=== PATIENT | male | born 1970 | race Asian ===

== ENCOUNTER 2017-01-17 17:22 | Inpatient (IN) | payer MEDICARE, MEDICAID ==
[2017-01-17 17:50] VITALS: BP 160/64
[2017-01-17] MEDS ORDERED: ceFAZolin 2 GM in Sodium Chloride 0.9% 100 ML IV ONE (18:14)
[2017-01-17] MEDS ORDERED: Morphine Sulfate 4 mg/mL 1mL Syr ONE (18:22)
--- NOTE | 2017-01-17 18:22 | ED Physician Chart ---
Chief Complaint/HPI - Patient Information Date Seen:: 01/17/17 Time Seen:: 18:17 Chief Complaint:: abscess History of Present Illness:: pt has chronic type 1 dm w blindness ...he also has crf and is on dialysis. he has noted a swelling and pain at tailbone area x sev days. he was on abx for a ST recently but not for this..unsure what he was on. no known fever. no uri sx. no gi sx. painfull at region behind scrotum and toward rt side..but anterior to anus. he notes a local swelling that is painfull. no change in bms noted. he is blind which could limit hx. has not had abscess problems in past. Allergies:: Allergies Allergy/AdvReac Type Severity Reaction Status Date / Time No Known Allergies Allergy Verified 01/17/17 17:31 Vitals:: Vital Signs - 8 hr 01/17/17 01/17/17 17:49 17:50 Temp 98.2 F HR 80 RR 17 BP 160/64 160/64 O2 Sat % 99 Historian:: Patient Review of Systems - Review of Systems General/Constitutional: No fever, No chills, No weight loss, No weakness, No diaphoresis, No edema, No loss of appetite Skin: No skin lesions, No rash, No bruising Head: No headache, No light-headedness Eyes: Acuity change (pt is blind) ENT: No earache, No nasal drainage, No sore throat, No tinnitus Neck: No neck pain, No swelling, No thyromegaly, No stiffness, No mass noted Cardio Vascular: No chest pain, No palpitations, No PND, No orthopnea, No edema Pulmonary: No SOB, No cough, No sputum, No wheezing GI: No nausea, No vomiting, No diarrhea, No pain, No melena, No hematochezia, No constipation, No hematemesis G/U: No dysuria, No frequency, No hematuria Musculoskeletal: No bone or joint pain, No back pain, No muscle pain Endocrine: No polyuria, No polydipsia Psychiatric: No prior psych history, No depression, No anxiety, No suicidal ideation Hematopoietic: No bruising, No lymphadenopathy Allergic/Immuno: No urticaria, No angioedema Neurological: No syncope, No focal symptoms, No weakness, No paresthesia, No headache, No seizure, No dizziness, No confusion, No vertigo Past Medical History - Past Medical History Past Medical History: HTN, DM, CHF, CVA/TIA (l side), ESRD (on dialysis), Other (blind from DM(type 1 DM)) Social History: Care Facility Surgical History: Pacemaker Medication: Reviewed Family Medical History - Family Member Father Hx Family Cancer: No Hx Family Congestive Heart Failure: No Hx Family Hypertension: No Hx Family Diabetes: No Hx Family Seizures: No Hx Family AIDS: No Hx Family COPD: No Physical Exam - Physical Examination General/Constitutional: Awake, Well-developed, well-nourished, Alert, No distress, GCS 15, Non-toxic appearing, Ambulatory Head: Atraumatic Other Eyes comments:: blind w vol loss to left orbit Skin: Nl inspection, No rash, No skin lesions, No ecchymosis, Well hydrated, No lymphadenopathy ENMT: External ears, nose nl, Nasal exam nl, Lips, teeth, gums nl Neck: Nontender, Full ROM w/o pain, No JVD, No nuchal rigidity, No bruit, No mass, No stridor Respiratory: Nl effort/Exclusion, Clear to Auscultation, No Wheeze/Rhonchi/Rales Cardio Vascular: RRR, No murmur, gallop, rubs, NL S1 S2 Other Cardio Vascular comments:: pacer site ok in l upper chest. GI: No tenderness/rebounding/guarding, No organomegaly, No hernia, Normal BS's, Nondistended, No mass/bruits, No McBurney tenderness : No CVA tenderness Extremities: No tenderness or effusion, Full ROM, normal strength in all extremities, No edema, Normal digits & nails Other Extremities comments:: dialysis shunt/graft at rt forearm seems ok w good thrill and no sx of infection. nontndr. Neuro/Psych: Alert/oriented, DTR's symmetric, Normal sensory exam, Normal motor strength, Judgement/insight normal, Mood normal Other Neuro/Psych comments:: prior cva w incoordination (no acute change) Misc: normal gait, Normal back, No paraspinal tenderness Other:: swelling and tender and painfull at region behind scrotum and toward rt side..but anterior to anus. there is a obviously pointing abscess which appears about to break through the skin in this region. there appears to be no extension of abscess toward anus or testiclular structures Assessment - Procedures Procedures:: i+d abscess at rt posterior low buttock. no extention to rectum or scrotum by exam. betadyne prep. iv ms 4mg for pain w zofran 4 iv. lidocaine 2pct + epi 6ml local injection. #11 scalpel used to open pointing abscess w immediate return of 5-10 ml of nuha pus. cx obtained for lab and sent. probed w forceps to break up loculations. there appears still some celulitis/induration as there is still some firm swelling in the area after pus was drained. iodoform gauze packing of wound after drainage to keep outlet open. Informed Consent: Procedure/risk/benefits explained by MD: Yes (pt blind but was made aware of all process/etc/why ..) ED Septic Shock - . Is Septic Shock (SBP<90, OR Lactate>4 mmol\L) present?: No - <6hrs of presentation: Vital Signs: Vital Signs - 8 hr 01/17/17 01/17/17 17:49 17:50 Temp 98.2 F HR 80 RR 17 BP 160/64 160/64 O2 Sat % 99 Reassessment (Disposition) - Reassessment Reassessment:: case melissa alexander who is admitting. 8:05pm pt has remained stable through ed. pain ctrl ok. vs stable ...htn noted and melissa mar Reassessment Condition:: Improved - Diagnosis Diagnosis:: 1 rt gluteal abscess w cellulitis s/p I+D of abscess in ED tonight 2 type 1 DM 3 renal failure/ dialysis pt 4 htn poor ctrl - Patient Disposition Admitted to:: Med/Surg Condition at Disposition:: Improved
[2017-01-17 18:24] LABS: % BASOPHILS 0.5 % (0.0-2.0); % EOSINOPHILS 3.1 % (0.0-5.0); % LYMPHOCYTES 9.1 % (20.0-50.0); % MONOCYTES 7.5 % (2.0-10.0); % NEUTROPHILS 79.8 % (40.0-80.0); MEAN CORPUSCULAR HEMOGLOBIN 32.3 pg (26.0-30.0); MEAN CORPUSCULAR HGB CONC 33.7 pg (28.0-36.0); MEAN PLATELET VOLUME 10.2 fl; NEUTROPHILE ABSOLUTE 6.6 Th/cmm (1.8-8.0); PLATELET COUNT 104 Th/cmm (150-400); RED BLOOD COUNT 3.16 Mil/cmm (4.30-5.70); RED CELL DISTRIBUTION WIDTH 15.2 % (11.5-20.0); WHITE BLOOD COUNT 8.3 Th/cmm (4.8-10.8)
[2017-01-17 18:35] LABS: HEMATOCRIT 30.4 % (39.0-49.0); HEMOGLOBIN 10.2 gm/dL (13.2-17.3)
[2017-01-17 18:56] LABS: ALB/GLOB RATIO 1.2 (1.0-1.8); ALKALINE PHOSPHATASE 96 U/L (34-104); BILIRUBIN,TOTAL 0.7 mg/dL (0.3-1.0); BUN - UREA NITROGEN 42 mg/dL (7-25); BUN/CREATININE RATIO 5.1; CARBON DIOXIDE 31.7 mEq/L (21.0-31.0); CHLORIDE 100 mEq/L (98-107); GLUCOSE 98 mg/dL (70-105); POTASSIUM SERUM 3.7 mEq/L (3.5-5.1); SGOT 6 U/L (13-39); SGPT/ALT < 3 U/L (7-52); SODIUM SERUM 136 mEq/L (136-145)
[2017-01-17 19:12] LABS: CREATININE - SERUM 8.2 mg/dL (0.7-1.3)
--- NOTE | 2017-01-17 22:01 | Admit Criteria Form ---
Admit Criteria Forms - Admit Criteria Diagnosis: CELLULITIS Clinical Indications for Admission to Inpatient Care (Place 'X' for any and all applicable criteria): Admission is indicated for ANY ONE of the following(1)(2)(3)(4)(5): [ ]I. Limb-threatening infection [ ]II. High-risk comorbid condition as indicated by ANY ONE of the following: [ ]a) Uncontrolled diabetes (eg, HbA1c greater than 10% (0.1)) [ ]b) Cirrhosis [ ]c) Neutropenia [ ]d) Asplenia [ ]e) Immunosuppression [ ]f) Symptomatic heart failure [ ]III. Failure of outpatient therapy as indicated by ALL of the following: [ ]a) Progression or no improvement after adequate trial (minimum of 48 hours, with longer period for stable lower extremity infection) [ ]b) Adequate antibiotic regimen as indicated by use of ANY ONE of the following: [ ]i) First-generation cephalosporin (e.g., cephalexin) [ ]ii) Antistaphylococcal penicillin (e.g., dicloxacillin) [ ]iii) Penicillin-allergic patient regimen (clindamycin, extended-spectrum fluoroquinolone, or doxycycline) [ ]iv) Resistant organism (eg, methicillin-resistant Staphylococcus aureus) regimen (6) [ ]c) Outpatient intravenous therapy regimen is not appropriate due to ANY ONE of the following. (7)(8)(9)(10): [ ]i) It was tried and was not successful (eg, progression of infection). [ ]ii) It is not available or cannot be arranged in a clinically appropriate time frame (e.g., the next day). [ ]iii) Clinical presentation (eg, acuity of infection, rapidity of progression, confirmed or suspected bacteremia) is judged to require ALL of the following: [ ]1) Immediate initiation of intravenous therapy ( eg, cannot wait for next day) [ ]2) Intensity of patient monitoring and observation (eg, vital sign measurement, checks for infection progression) that cannot be provided at other than inpatient level of care [ ]IV. Mental status changes [ ]V. Bacteremia [ ]. Hemodynamic instability [ ]VII. Suspected necrotizing soft tissue infection (e.g., gas in tissue)(11)( 12) [ ]VIII. Orbital infection (13)(14) [X]IX. Associated surgical procedure (e.g., abscess drainage, debridement) not amenable to outpatient, emergency department, or observation care [ ]X. Cutaneous gangrene [ ]XI. High fever (temperature greater than 39.5 degrees C (103.1 degrees F) (oral)) not responsive to outpatient, emergency department, or observation care therapy [ ]XIII. Inpatient admission required rather than observation care (Also use Cellulitis: Observation Care as appropriate) because of ANY ONE of the following : [ ]a) Periorbital or perineal infection that is severe or worsening [ ]b) Severe pain requiring acute inpatient management [ ]c) IV fluid to replace significant ongoing (e.g., for over 24 hours) losses (greater than 3L/m2 per day) [ ]d) Compartment syndrome monitoring (17) [ ]e) Strict or protective (eg, laminar flow) isolation [ ]f) Urgent debridement or skin grafting [ ]g) Bone or joint debridement [ ]h) Immediate inpatient surgery [ ]i) Other condition, treatment or monitoring requiring inpatient admission Extended stay beyond goal length of stay may be needed for (1)(18): [ ]a) Necrotizing soft tissue infection or fasciitis [ ]b) Gram-negative infection [ ]c) Methicillin-resistant Staphylococcal aureus (MRSA) infection [ ]d) Peripheral venous insufficiency with cellulitis [ ]e) Extensive edema [ ]f) Sepsis or continued Hemodynamic instability [ ]g) Continued high fever or mental status change [ ]h) Bacteremia [ ]i) Active serious comorbid conditions ( eg, heart failure, renal insufficiency) The original [facility] [employer] content created by [employer] has been revised. The portions of the content which have been revised are identified through the use of italic text or in bold, and [facility] has neither reviewed nor approved the modified material. All other unmodified content is copyright [facility] Please see references footnoted in the original [facility] edition 2016 Admit Criteria Met?: Yes
[2017-01-18] MEDS ORDERED: Hydrocodone/APAP 10 mg/325 mg Tab PO PRN (05:19)
[2017-01-18 07:07] LABS: % BASOPHILS 0.1 % (0.0-2.0); % EOSINOPHILS 3.7 % (0.0-5.0); % LYMPHOCYTES 10.8 % (20.0-50.0); % MONOCYTES 7.9 % (2.0-10.0); % NEUTROPHILS 77.5 % (40.0-80.0); HEMOGLOBIN 8.9 gm/dL (13.2-17.3); MEAN CELL VOLUME 95.9 fl (80-99); MEAN CORPUSCULAR HEMOGLOBIN 31.6 pg (26.0-30.0); MEAN CORPUSCULAR HGB CONC 32.9 pg (28.0-36.0); MEAN PLATELET VOLUME 9.9 fl; NEUTROPHILE ABSOLUTE 5.5 Th/cmm (1.8-8.0); PLATELET COUNT 101 Th/cmm (150-400); RED BLOOD COUNT 2.81 Mil/cmm (4.30-5.70); RED CELL DISTRIBUTION WIDTH 14.4 % (11.5-20.0); WHITE BLOOD COUNT 7.2 Th/cmm (4.8-10.8)
[2017-01-18 07:26] LABS: ALB/GLOB RATIO 1.2 (1.0-1.8); ALKALINE PHOSPHATASE 89 U/L (34-104); ANION GAP 8.3 (7.0-16.0); BILIRUBIN,TOTAL 0.5 mg/dL (0.3-1.0); BUN - UREA NITROGEN 44 mg/dL (7-25); BUN/CREATININE RATIO 5.1; CALCIUM SERUM 9.7 mg/dL (8.6-10.3); CARBON DIOXIDE 33.3 mEq/L (21.0-31.0); CHLORIDE 102 mEq/L (98-107); GLUCOSE 79 mg/dL (70-105); POTASSIUM SERUM 3.6 mEq/L (3.5-5.1); SGOT 5 U/L (13-39); SGPT/ALT < 3 U/L (7-52); SODIUM SERUM 140 mEq/L (136-145)
[2017-01-18 07:41] LABS: CREATININE - SERUM 8.7 mg/dL (0.7-1.3)
[2017-01-18] MEDS ORDERED: VTE Chemical Prophylaxis Screen/Admission MC PRN (08:30)
[2017-01-18] MEDS ORDERED: CA PANTOTHENATE PO SCH (09:00)
[2017-01-18] MEDS ORDERED: BIOTIN PO SCH (09:00)
[2017-01-18] MEDS ORDERED: FOLIC1 PO SCH (09:00)
[2017-01-18] MEDS: Aspirin 81mg Chewable Tab PO SCH (09:11)
--- NOTE | 2017-01-18 10:33 | History & Physical ---
ADMIT DATE: 01/17/2017 CHIEF COMPLAINT: Right inner thigh abscess. HISTORY OF PRESENT ILLNESS: This is a 46-year-old male who presents to [facility] for a right inner thigh abscess, which was noted by staff at the shelter a few days prior to admission. The patient was complaining of some pain and swelling behind the right scrotum towards the anterior anus with localized swelling and pain. The patient denies any changes in his bowel movements. He has a history of chronic type 1 diabetes with blindness, also has chronic renal failure on dialysis, was noted to have some swelling and pain around the tailbone area last several days prior to admission. He was treated with oral antibiotics, but did not show any improvement, thus was transferred to [facility] for further evaluation and treatment. While in the ER, the patient had some initial labs that showed a white count of 7.2, hemoglobin 10.2, hematocrit 30.4, platelets 104. Sodium was 136, potassium 3.7, chloride 100, bicarbonate 31, BUN 42, creatinine 8.2, glucose 98. AST 6, ALT less than 3. Albumin 4.0. Hemoglobin A1c was 5.5. The patient was found to have an abscess in the right upper thigh buttocks area. ER doctor initially did I and D of the abscess with some serosanguineous fluid collected and was started on Ancef while in the ER. He was subsequently admitted to med/surg for further evaluation and treatment. REVIEW OF SYSTEMS: Essentially negative with the exception of the above complaints. PHYSICAL EXAMINATION: VITAL SIGNS: Temperature 97, pulse 71, respiration 20, blood pressure 122/55. GENERAL: This is a 46-year-old female, well developed, well nourished, appears stated age. HEENT: Normocephalic, atraumatic. Pupils reactive to light and accommodation. Extraocular muscles intact. Ears: TMs intact. NECK: Supple. Good range of motion. No thyromegaly. No lymphadenopathy. CARDIOVASCULAR: Regular rate and rhythm. No murmurs, rubs or clicks. LUNGS: Clear to auscultation. No rales, rhonchi or wheezing. ABDOMEN: Bowel sounds are active in all 4 quadrants. No rebound tenderness, rigidity, no guarding. SKIN: Presence of right inguinal lower buttocks abscess. NEUROLOGIC: Cranial nerves 2-12 grossly intact. EXTREMITIES: No clubbing, cyanosis or edema. Pedal pulses intact. ASSESSMENT AND PLAN: 1. Right inguinal inner thigh buttocks abscess. We will order vancomycin per Pharmacy. Wound culture is pending. We will also order a surgical consult with Dr. Mauro. 2. End-stage renal disease, on hemodialysis. We will order Nephrology consult with Dr. Bailey. 3. Hypertension. 4. Diabetes, type 2. 5. Hyperlipidemia. 6. Cerebrovascular accident. 7. Anemia, most likely due to chronic disease. JOB# [id number]
[2017-01-18] MEDS ORDERED: Albumin 25% 25gm/100mL 25 GM/100 ML BTL IV ONE (13:44)
--- NOTE | 2017-01-19 03:44 | Consultation ---
DATE OF CONSULTATION: 01/18/2017 ATTENDING: Idris Mckenna D.O. PICKING MACHINE OPERATOR: Demetrius Bailey M.D. REASON FOR CONSULTATION: Electrolyte imbalance and fluid management. HISTORY OF PRESENT ILLNESS: This is a 46-year-old male with past medical history of end-stage renal disease on hemodialysis, who was brought in because of the right thigh/gluteal pain. A few days prior to admission, he complained of pain involving the right thigh/gluteal area. This was associated with some edema. A few days prior to admission, he complained of pain involving the right thigh/gluteal area. This was associated with some edema. A few hours prior to admission, his thigh/gluteal pain became worse. This was associated with warmth. He was then advised to proceed to the Emergency Room. His white count was 7.2. He then underwent I and D by the ER physician. Blood culture was obtained and he was initiated on Ancef. He had no fever or chills, nausea or vomiting as well as diarrhea. He has a history of kidney failure secondary to diabetes. He is now on hemodialysis. PAST MEDICAL HISTORY: 1. End-stage renal disease, on hemodialysis. 2. Type 1 diabetes mellitus. 3. Legally blind secondary to diabetes. 4. Status post cerebrovascular accident with left hemiparesis. 5. Essential hypertension. 6. Dyslipidemia. 7. Anemia of chronic disease. PAST SURGICAL HISTORY: Status post permanent pacemaker placement. CURRENT MEDICATIONS: He is currently on cholecalciferol, Zyloprim, aspirin, atropine, calcium acetate, Colace, dorzolamide, Lexapro, famotidine, folic acid, gabapentin, [place], latanoprost, losartan, potassium, ondansetron, timolol, vancomycin, and acetazolamide. ALLERGIES: No known drug allergies. SOCIAL HISTORY: No history of alcohol or tobacco use. He currently resides at an extended care facility. FAMILY HISTORY: Noncontributory to present illness. REVIEW OF SYSTEMS: CONSTITUTIONAL: Appetite had been fair. No weakness. No fever and no chills. HEENT: He is legally blind due to diabetic retinopathy. No headache or dizziness. Hearing acuity remains within acceptable limts. CARDIORESPIRATORY: He has a history of hypertension. At this point, he does not have any shortness of breath, chest pain, palpitations, diaphoresis, or cough. GASTROINTESTINAL: No nausea and vomiting, abdominal pain or cramping, hematemesis, melena, hematochezia, no diarrhea. ENDOCRINE: He has a history of diabetes, no thyroid abnormalities. He also has dyslipidemia. MUSCULOSKELETAL: Multiple joint arthralgias. GENITOURINARY: History of kidney failure, now on hemodialysis. Rarely urinates. If he does, he denies any dysuria nor hematuria. NEUROPSYCH: No syncopal episode nor seizure activity. He has some diabetic neuropathy. PHYSICAL EXAMINATION: GENERAL: The patient is awake, verbal, and comfortable. VITAL SIGNS: Blood pressure is 134/70, pulse 73, and temperature 96.9 degrees. SKIN: Good turgor, warm, no rash, no jaundice appreciated. HEENT: Head is normocephalic and atraumatic. EYES: Extraocular muscles intact. Pupils are equal, round, and reactive to light and accommodation. Anicteric sclerae, pink conjunctivae. Nose, midline nasal septum. Mouth, moist mucosa with adequate dentition. NECK: Supple, no adenopathy, no thyromegaly, no bruits. Trachea palpated in the midline. CHEST AND CVS: S1 and S2. No rub or murmur, no gallop appreciated. Point of maximum impulse fifth intercostal space, left midclavicular line. No abdominal or femoral bruits appreciated. LUNGS: Equal expansion. No use of accessory muscles. No supraclavicular retractions, decreased breath sounds, clear to auscultation without any wheeze. ABDOMEN: Mildly globular, soft. Positive bowel sounds. No bruits either diastolic or systolic. RECTAL: Deferred because of pain in the right gluteal area. He has intact dressing of the right gluteal area. GENITOURINARY: Normal appearing male genitalia. MUSCULOSKELETAL: No effusions present in his joints with adequate range of function. EXTREMITIES: No evidence of any edema, cyanosis, or clubbing with palpable femoral, popliteal, and dorsalis pedis pulses. NEUROLOGIC: The patient is alert, verbal. Motor is 5/5. Cranial nerves 3-12 intact. Sensory intact. LABORATORY DATA: Revealed sodium is 140, potassium 4.6, chloride 102, bicarbonate 23, BUN 44, creatinine 8.7, calcium 9.7, and albumin 3.8. White count is a 7.2, hemoglobin 8.9, hematocrit 27, platelets 101,000. Polys 77.5 degrees. IMPRESSION: 1. End-stage renal disease, on hemodialysis. 2. Right inner thigh/buttock abscess status I and D. 3. Metabolic alkalosis. 4. Type 1 diabetes mellitus with chronic kidney disease. 5. Legally blind secondary to diabetes. 6. Status post cerebrovascular accident with left hemiparesis. 7. Essential hypertension with chronic kidney disease. 8. Anemia of chronic kidney disease. PLAN: 1. Hemodialysis as scheduled. 2. Follow up cultures. 3. Continue with Ancef for now as well as one dose of vancomycin. 4. Agree with surgical consult. 5. Discontinue acetazolamide because the patient now is in metabolic alkalosis. Thank you, Dr. Mckenna for this consult. We will follow the patient closely with you. JOB# [id number]
[2017-01-19] MEDS: Aspirin 81mg Chewable Tab PO SCH (08:39)
--- NOTE | 2017-01-19 10:11 | General Progress Note ---
Subjective - Review of Systems Service Date: 01/19/17 Events since last encounter: chart reviewed I and D done local wound care ordered Objective - Results Result Diagrams: 01/18/17 06:33 01/18/17 06:33 Recent Labs: Laboratory Last Values WBC 7.2 Th/cmm (4.8-10.8) 01/18/17 06:33 RBC 2.81 Mil/cmm (4.30-5.70) L 01/18/17 06:33 Hgb 8.9 gm/dL (13.2-17.3) L 01/18/17 06:33 Hct 27.0 % (39.0-49.0) L D 01/18/17 06:33 MCV 95.9 fl (80-99) 01/18/17 06:33 MCH 31.6 pg (26.0-30.0) H 01/18/17 06:33 MCHC Differential 32.9 pg (28.0-36.0) 01/18/17 06:33 RDW 14.4 % (11.5-20.0) 01/18/17 06:33 Plt Count 101 Th/cmm (150-400) L 01/18/17 06:33 MPV 9.9 fl 01/18/17 06:33 Neutrophils % 77.5 % (40.0-80.0) 01/18/17 06:33 Lymphocytes % 10.8 % (20.0-50.0) L 01/18/17 06:33 Monocytes % 7.9 % (2.0-10.0) 01/18/17 06:33 Eosinophils % 3.7 % (0.0-5.0) 01/18/17 06:33 Basophils % 0.1 % (0.0-2.0) 01/18/17 06:33 Sodium 140 mEq/L (136-145) 01/18/17 06:33 Potassium 3.6 mEq/L (3.5-5.1) 01/18/17 06:33 Chloride 102 mEq/L (98-107) 01/18/17 06:33 Carbon Dioxide 33.3 mEq/L (21.0-31.0) H 01/18/17 06:33 Anion Gap 8.3 (7.0-16.0) 01/18/17 06:33 BUN 44 mg/dL (7-25) H 01/18/17 06:33 Creatinine 8.7 mg/dL (0.7-1.3) H* 01/18/17 06:33 Est GFR ( Amer) 8.4 ml/min (>90) 01/18/17 06:33 Est GFR (Non-Af Amer) 7.0 ml/min 01/18/17 06:33 BUN/Creatinine Ratio 5.1 01/18/17 06:33 Glucose 79 mg/dL (70-105) 01/18/17 06:33 Hemoglobin A1c % 5.5 % (4.0-6.0) 01/17/17 17:50 Calcium 9.7 mg/dL (8.6-10.3) 01/18/17 06:33 Total Bilirubin 0.5 mg/dL (0.3-1.0) 01/18/17 06:33 AST 5 U/L (13-39) L 01/18/17 06:33 ALT < 3 U/L (7-52) L 01/18/17 06:33 Alkaline Phosphatase 89 U/L (34-104) 01/18/17 06:33 Total Protein 7.0 gm/dL (6.0-8.3) 01/18/17 06:33 Albumin 3.8 gm/dL (4.2-5.5) L 01/18/17 06:33 Globulin 3.2 gm/dL 01/18/17 06:33 Albumin/Globulin Ratio 1.2 (1.0-1.8) 01/18/17 06:33 Random Vancomycin 11.0 ug/mL (5.0-40.0) 01/19/17 05:45 - Physical Exam Vitals and I&O: Vital Signs Temp 97.5 F 01/19/17 08:00 Pulse 76 01/19/17 08:39 Resp 18 01/19/17 08:00 BP 146/73 01/19/17 08:39 Pulse Ox 97 01/19/17 08:00 Intake & Output 01/18/17 01/19/17 01/19/17 18:59 06:59 18:59 Intake Total 320 100 220 Output Total 600 0 Balance -280 100 220 Intake: Oral 320 100 220 Output: Urine 0 Hemodialysis 600 Active Medications: Current Medications Acetaminophen/Hydrocodone Bitart ([place] 10 Mg/325 Mg) 1 tab PO Q4H PRN PRN Reason: Pain (Mild) Stop: 03/19/17 05:18 Allopurinol (Zyloprim) 300 mg PO DAILY SARAH Stop: 03/19/17 08:59 Last Admin: 01/19/17 08:39 Dose: 300 mg Aspirin (Aspirin Chewable) 81 mg PO DAILY SARAH Stop: 03/19/17 08:59 Last Admin: 01/19/17 08:39 Dose: 81 mg Atropine Sulfate (Isopto Atropine 1% Ophth Soln) 1 drop LEFT EYE BID SARAH Stop: 03/19/17 08:59 Last Admin: 01/19/17 09:09 Dose: 1 drop Calcium Acetate (Phoslo) 667 mg PO TID SARAH Stop: 03/19/17 08:59 Last Admin: 01/19/17 08:39 Dose: 667 mg Cholecalciferol (Vitamin D3) 1,000 iu PO BID SARAH Stop: 03/19/17 08:59 Docusate Sodium (Colace) 100 mg PO DAILY SARAH Stop: 03/19/17 08:59 Last Admin: 01/19/17 08:38 Dose: 100 mg Dorzolamide HCl (Trusopt 2% Ophth Soln) 1 drop EACH EYE BID SARAH Stop: 03/19/17 08:59 Last Admin: 01/19/17 09:09 Dose: 1 drop Escitalopram Oxalate (Lexapro) 10 mg PO DAILY [facility] PRN Reason: Protocol Stop: 03/19/17 08:59 Last Admin: 01/19/17 08:38 Dose: 10 mg Famotidine (Pepcid) 20 mg PO BIDAC SARAH Stop: 03/19/17 07:29 Last Admin: 01/19/17 08:38 Dose: 20 mg Folic Acid (Folate) 1 mg PO DAILY SARAH Stop: 03/19/17 08:59 Last Admin: 01/19/17 08:39 Dose: 1 mg Gabapentin (Neurontin) 100 mg PO DAILY SARAH Stop: 03/19/17 08:59 Last Admin: 01/19/17 08:39 Dose: 100 mg Heparin Sodium (Porcine) (Heparin) 5,000 units SUBQ Q12HR SARAH Stop: 03/19/17 08:59 Last Admin: 01/18/17 22:19 Dose: Not Given Vancomycin HCl 1 gm/ Sodium (Chloride) 250 mls @ 165 mls/hr IV ONCE ONE Stop: 01/19/17 13:30 Latanoprost (Xalatan 0.005% Ophth Soln) 1 drop EACH EYE HS SARAH Stop: 03/19/17 20:59 Last Admin: 01/18/17 22:18 Dose: 1 drop Losartan Potassium (Cozaar) 50 mg PO DAILY SARAH Stop: 03/19/17 08:59 Last Admin: 01/19/17 08:39 Dose: 50 mg Miscellaneous (Vancomycin Iv Per Pharmacy) 1 [facility] PRN PRN PRN Reason: PROTOCOL Stop: 03/18/17 20:13 Miscellaneous (Vte Chemical Prophylaxis Screen/ Admission) 1 [facility] PRN PRN PRN Reason: PROTOCOL Stop: 03/19/17 08:29 Timolol Maleate (Timoptic 0.5% Ophth Soln) 1 drop LEFT EYE BID SARAH Stop: 03/19/17 08:59 Last Admin: 01/19/17 09:09 Dose: 1 drop - Procedures Procedures: Procedures Procedure Code Date DRAINAGE OF RIGHT BUTTOCK, OPEN APPROACH [id number] 01/17/17 DRAINAGE OF SKIN ABSCESS 58374 01/17/17 Assessment/Plan - Problem List Patient Problems: All Active Problems Congestive heart failure (Acute) I50.9 DM w/o complication type II (Acute) E11.9 ESRD (end stage renal disease) (Acute) Essential hypertension (Acute) I10 Pain in right eye (Acute) H57.11
[2017-01-19 13:11] LABS: HEP B CORE IGM Negative (Negative); HEP C ANTIBODY <0.1 s/co ratio (0.0-0.9)
--- NOTE | 2017-01-19 13:34 | Consultation ---
DATE OF CONSULTATION: 01/19/2017 REFERRING PHYSICIAN: Dr. Mckenna. REASON FOR CONSULTATION: Abscess, right perineal area. Thank you for referring this patient to me. HISTORY OF PRESENT ILLNESS: This is a 46-year-old male who was admitted through Emergency Room because of abscess that formed in his right perineal area day prior to admission. The patient underwent incision and drainage of the abscess. PAST MEDICAL HISTORY: Includes end-stage renal disease, on hemodialysis, hypertension, diabetes, hyperlipidemia, CVA, and blindness. PHYSICAL EXAMINATION: Now, the abscess has been drained and iodoform pack is noted and removed. Local wound care will be ordered on a daily basis. We will follow with you. [facility]# [id number]
--- NOTE | 2017-01-19 13:51 | General Progress Note ---
Subjective - Review of Systems Service Date: 01/19/17 Subjective: alert, less gluteal pain Objective - Results Result Diagrams: 01/18/17 06:33 01/18/17 06:33 Recent Labs: Laboratory Last Values WBC 7.2 Th/cmm (4.8-10.8) 01/18/17 06:33 RBC 2.81 Mil/cmm (4.30-5.70) L 01/18/17 06:33 Hgb 8.9 gm/dL (13.2-17.3) L 01/18/17 06:33 Hct 27.0 % (39.0-49.0) L D 01/18/17 06:33 MCV 95.9 fl (80-99) 01/18/17 06:33 MCH 31.6 pg (26.0-30.0) H 01/18/17 06:33 MCHC Differential 32.9 pg (28.0-36.0) 01/18/17 06:33 RDW 14.4 % (11.5-20.0) 01/18/17 06:33 Plt Count 101 Th/cmm (150-400) L 01/18/17 06:33 MPV 9.9 fl 01/18/17 06:33 Neutrophils % 77.5 % (40.0-80.0) 01/18/17 06:33 Lymphocytes % 10.8 % (20.0-50.0) L 01/18/17 06:33 Monocytes % 7.9 % (2.0-10.0) 01/18/17 06:33 Eosinophils % 3.7 % (0.0-5.0) 01/18/17 06:33 Basophils % 0.1 % (0.0-2.0) 01/18/17 06:33 Sodium 140 mEq/L (136-145) 01/18/17 06:33 Potassium 3.6 mEq/L (3.5-5.1) 01/18/17 06:33 Chloride 102 mEq/L (98-107) 01/18/17 06:33 Carbon Dioxide 33.3 mEq/L (21.0-31.0) H 01/18/17 06:33 Anion Gap 8.3 (7.0-16.0) 01/18/17 06:33 BUN 44 mg/dL (7-25) H 01/18/17 06:33 Creatinine 8.7 mg/dL (0.7-1.3) H* 01/18/17 06:33 Est GFR ( Amer) 8.4 ml/min (>90) 01/18/17 06:33 Est GFR (Non-Af Amer) 7.0 ml/min 01/18/17 06:33 BUN/Creatinine Ratio 5.1 01/18/17 06:33 Glucose 79 mg/dL (70-105) 01/18/17 06:33 Hemoglobin A1c % 5.5 % (4.0-6.0) 01/17/17 17:50 Calcium 9.7 mg/dL (8.6-10.3) 01/18/17 06:33 Total Bilirubin 0.5 mg/dL (0.3-1.0) 01/18/17 06:33 AST 5 U/L (13-39) L 01/18/17 06:33 ALT < 3 U/L (7-52) L 01/18/17 06:33 Alkaline Phosphatase 89 U/L (34-104) 01/18/17 06:33 Total Protein 7.0 gm/dL (6.0-8.3) 01/18/17 06:33 Albumin 3.8 gm/dL (4.2-5.5) L 01/18/17 06:33 Globulin 3.2 gm/dL 01/18/17 06:33 Albumin/Globulin Ratio 1.2 (1.0-1.8) 01/18/17 06:33 Random Vancomycin 11.0 ug/mL (5.0-40.0) 01/19/17 05:45 Hepatitis A IgM Ab Negative (Negative) 01/18/17 05:33 Hep Bs Antigen Negative (Negative) 01/18/17 05:33 Hep B Core IgM Ab Negative (Negative) 01/18/17 05:33 Hepatitis C Antibody <0.1 s/co ratio (0.0-0.9) 01/18/17 05:33 - Physical Exam Vitals and I&O: Vital Signs Temp 97.5 F 01/19/17 08:00 Pulse 76 01/19/17 08:39 Resp 18 01/19/17 08:00 BP 146/73 01/19/17 08:39 Pulse Ox 97 01/19/17 08:00 Intake & Output 01/18/17 01/19/17 01/19/17 18:59 06:59 18:59 Intake Total 320 100 220 Output Total 600 0 Balance -280 100 220 Intake: Oral 320 100 220 Output: Urine 0 Hemodialysis 600 Active Medications: Current Medications Acetaminophen/Hydrocodone Bitart ([place] 10 Mg/325 Mg) 1 tab PO Q4H PRN PRN Reason: Pain (Mild) Stop: 03/19/17 05:18 Allopurinol (Zyloprim) 300 mg PO DAILY [facility] Stop: 03/19/17 08:59 Last Admin: 01/19/17 08:39 Dose: 300 mg Aspirin (Aspirin Chewable) 81 mg PO DAILY [facility] Stop: 03/19/17 08:59 Last Admin: 01/19/17 08:39 Dose: 81 mg Atropine Sulfate (Isopto Atropine 1% Ophth Soln) 1 drop LEFT EYE BID [facility] Stop: 03/19/17 08:59 Last Admin: 01/19/17 09:09 Dose: 1 drop Calcium Acetate (Phoslo) 667 mg PO TID [facility]AH Stop: 03/19/17 08:59 Last Admin: 01/19/17 13:29 Dose: 667 mg Cholecalciferol (Vitamin D3) 1,000 iu PO BID [facility] Stop: 03/19/17 08:59 Last Admin: 01/19/17 09:30 Dose: 1,000 iu Docusate Sodium (Colace) 100 mg PO DAILY [facility] Stop: 03/19/17 08:59 Last Admin: 01/19/17 08:38 Dose: 100 mg Dorzolamide HCl (Trusopt 2% Ophth Soln) 1 drop EACH EYE BID [facility] Stop: 03/19/17 08:59 Last Admin: 01/19/17 09:09 Dose: 1 drop Escitalopram Oxalate (Lexapro) 10 mg PO DAILY [facility] PRN Reason: Protocol Stop: 03/19/17 08:59 Last Admin: 01/19/17 08:38 Dose: 10 mg Famotidine (Pepcid) 20 mg PO BIDAC [facility] Stop: 03/19/17 07:29 Last Admin: 01/19/17 08:38 Dose: 20 mg Folic Acid (Folate) 1 mg PO DAILY [facility] Stop: 03/19/17 08:59 Last Admin: 01/19/17 08:39 Dose: 1 mg Gabapentin (Neurontin) 100 mg PO DAILY [facility] Stop: 03/19/17 08:59 Last Admin: 01/19/17 08:39 Dose: 100 mg Heparin Sodium (Porcine) (Heparin) 5,000 units SUBQ Q12HR [facility] Stop: 03/19/17 08:59 Last Admin: 01/19/17 13:19 Dose: Not Given Latanoprost (Xalatan 0.005% Oph Soln) 1 drop EACH EYE HS [facility] Stop: 03/19/17 20:59 Last Admin: 01/18/17 22:18 Dose: 1 drop Losartan Potassium (Cozaar) 50 mg PO DAILY [facility] Stop: 03/19/17 08:59 Last Admin: 01/19/17 08:39 Dose: 50 mg Miscellaneous (Vancomycin Iv Per Pharmacy) 1 [facility] PRN PRN PRN Reason: PROTOCOL Stop: 03/18/17 20:13 Miscellaneous (Vte Chemical Prophylaxis Screen/ Admission) 1 [facility] PRN PRN PRN Reason: PROTOCOL Stop: 03/19/17 08:29 Timolol Maleate (Timoptic 0.5% Oph Soln) 1 drop LEFT EYE BID [facility] Stop: 03/19/17 08:59 Last Admin: 01/19/17 09:09 Dose: 1 drop General: Alert, Cooperative, No acute distress HEENT: Atraumatic, Mucous membr. moist/pink Neck: Supple, +2 carotid pulse wo bruit Cardiovascular: Regular rate, Normal S1, Normal S2 Lungs: Clear to auscultation Abdomen: Bowel sounds, Soft Extremities: no Edema Neurological: Sensation intact Skin: no Rash Psych/Mental Status: Mood NL - Procedures Procedures: Procedures Procedure Code Date DRAINAGE OF RIGHT BUTTOCK, OPEN APPROACH [id number] 01/17/17 DRAINAGE OF SKIN ABSCESS 59182 01/17/17 Assessment/Plan - Problem List Patient Problems: All Active Problems Congestive heart failure (Acute) I50.9 DM w/o complication type II (Acute) E11.9 ESRD (end stage renal disease) (Acute) Essential hypertension (Acute) I10 Pain in right eye (Acute) H57.11 - Assessment Assessment: ESRD on HD right thigh/buttock abscess Met alk Type 1 dm 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 S/P CVA Left Hemiparesis Ess HTN Anemia of CD - Plan Plan: Lab - Result Diagrams 01/18/17 06:33 01/18/17 06:33 Current Medications Acetaminophen/Hydrocodone Bitart ([place] 10 Mg/325 Mg) 1 tab PO Q4H PRN PRN Reason: Pain (Mild) Stop: 03/19/17 05:18 Allopurinol (Zyloprim) 300 mg PO DAILY [facility]AH Stop: 03/19/17 08:59 Last Admin: 01/19/17 08:39 Dose: 300 mg Aspirin (Aspirin Chewable) 81 mg PO DAILY [facility] Stop: 03/19/17 08:59 Last Admin: 01/19/17 08:39 Dose: 81 mg Atropine Sulfate (Isopto Atropine 1% Oph Soln) 1 drop LEFT EYE BID [facility] Stop: 03/19/17 08:59 Last Admin: 01/19/17 09:09 Dose: 1 drop Calcium Acetate (Phoslo) 667 mg PO TID SARAH Stop: 03/19/17 08:59 Last Admin: 01/19/17 13:29 Dose: 667 mg Cholecalciferol (Vitamin D3) 1,000 iu PO BID SARAH Stop: 03/19/17 08:59 Last Admin: 01/19/17 09:30 Dose: 1,000 iu Docusate Sodium (Colace) 100 mg PO DAILY [facility] Stop: 03/19/17 08:59 Last Admin: 01/19/17 08:38 Dose: 100 mg Dorzolamide HCl (Trusopt 2% Ophth Soln) 1 drop EACH EYE BID [facility] Stop: 03/19/17 08:59 Last Admin: 01/19/17 09:09 Dose: 1 drop Escitalopram Oxalate (Lexapro) 10 mg PO DAILY [facility] PRN Reason: Protocol Stop: 03/19/17 08:59 Last Admin: 01/19/17 08:38 Dose: 10 mg Famotidine (Pepcid) 20 mg PO BIDAC [facility] Stop: 03/19/17 07:29 Last Admin: 01/19/17 08:38 Dose: 20 mg Folic Acid (Folate) 1 mg PO DAILY [facility] Stop: 03/19/17 08:59 Last Admin: 01/19/17 08:39 Dose: 1 mg Gabapentin (Neurontin) 100 mg PO DAILY [facility] Stop: 03/19/17 08:59 Last Admin: 01/19/17 08:39 Dose: 100 mg Heparin Sodium (Porcine) (Heparin) 5,000 units SUBQ Q12HR [facility] Stop: 03/19/17 08:59 Last Admin: 01/19/17 13:19 Dose: Not Given Latanoprost (Xalatan 0.005% Ophth Soln) 1 drop EACH EYE HS [facility] Stop: 03/19/17 20:59 Last Admin: 01/18/17 22:18 Dose: 1 drop Losartan Potassium (Cozaar) 50 mg PO DAILY [facility]AH Stop: 03/19/17 08:59 Last Admin: 01/19/17 08:39 Dose: 50 mg Miscellaneous (Vancomycin Iv Per Pharmacy) 1 ea PRN PRN PRN Reason: PROTOCOL Stop: 03/18/17 20:13 Miscellaneous (Vte Chemical Prophylaxis Screen/ Admission) 1 ea PRN PRN PRN Reason: PROTOCOL Stop: 03/19/17 08:29 Timolol Maleate (Timoptic 0.5% Oph Soln) 1 drop LEFT EYE BID SARAH Stop: 03/19/17 08:59 Last Admin: 01/19/17 09:09 Dose: 1 drop schedule for hd in am continue ABx f/u cultures
[2017-01-20 07:21] LABS: % NEUTROPHILS 69.3 % (40.0-80.0); HEMOGLOBIN 9.3 gm/dL (13.2-17.3)
[2017-01-20 07:25] LABS: % BASOPHILS 0.9 % (0.0-2.0); % EOSINOPHILS 5.9 % (0.0-5.0); % LYMPHOCYTES 15.1 % (20.0-50.0); % MONOCYTES 8.8 % (2.0-10.0); HEMATOCRIT 27.8 % (39.0-49.0); MEAN CELL VOLUME 95.4 fl (80-99); MEAN CORPUSCULAR HEMOGLOBIN 32.1 pg (26.0-30.0); MEAN CORPUSCULAR HGB CONC 33.7 pg (28.0-36.0); MEAN PLATELET VOLUME 9.5 fl; NEUTROPHILE ABSOLUTE 3.5 Th/cmm (1.8-8.0); PLATELET COUNT 103 Th/cmm (150-400); RED BLOOD COUNT 2.91 Mil/cmm (4.30-5.70); RED CELL DISTRIBUTION WIDTH 14.8 % (11.5-20.0)
[2017-01-20 07:34] LABS: ALB/GLOB RATIO 1.2 (1.0-1.8); ALKALINE PHOSPHATASE 83 U/L (34-104); ANION GAP 14.7 (7.0-16.0); BILIRUBIN,TOTAL 0.6 mg/dL (0.3-1.0); BUN - UREA NITROGEN 39 mg/dL (7-25); BUN/CREATININE RATIO 5.2; CALCIUM SERUM 9.6 mg/dL (8.6-10.3); CARBON DIOXIDE 25.2 mEq/L (21.0-31.0); CHLORIDE 105 mEq/L (98-107); GLUCOSE 65 mg/dL (70-105); POTASSIUM SERUM 3.9 mEq/L (3.5-5.1); SGOT 6 U/L (13-39); SGPT/ALT < 3 U/L (7-52); SODIUM SERUM 141 mEq/L (136-145)
[2017-01-20 07:54] LABS: CREATININE - SERUM 7.5 mg/dL (0.7-1.3)
[2017-01-20] MEDS: Aspirin 81mg Chewable Tab PO SCH (09:20)
--- NOTE | 2017-01-20 14:46 | General Progress Note ---
Subjective - Review of Systems Service Date: 01/20/17 Subjective: alert, less gluteal pain Objective - Results Result Diagrams: 01/20/17 06:50 01/20/17 06:50 Recent Labs: Laboratory Last Values WBC 5.0 Th/cmm (4.8-10.8) D 01/20/17 06:50 RBC 2.91 Mil/cmm (4.30-5.70) L 01/20/17 06:50 Hgb 9.3 gm/dL (13.2-17.3) L 01/20/17 06:50 Hct 27.8 % (39.0-49.0) L 01/20/17 06:50 MCV 95.4 fl (80-99) 01/20/17 06:50 MCH 32.1 pg (26.0-30.0) H 01/20/17 06:50 MCHC Differential 33.7 pg (28.0-36.0) 01/20/17 06:50 RDW 14.8 % (11.5-20.0) 01/20/17 06:50 Plt Count 103 Th/cmm (150-400) L 01/20/17 06:50 MPV 9.5 fl 01/20/17 06:50 Neutrophils % 69.3 % (40.0-80.0) 01/20/17 06:50 Lymphocytes % 15.1 % (20.0-50.0) L 01/20/17 06:50 Monocytes % 8.8 % (2.0-10.0) 01/20/17 06:50 Eosinophils % 5.9 % (0.0-5.0) H 01/20/17 06:50 Basophils % 0.9 % (0.0-2.0) 01/20/17 06:50 Sodium 141 mEq/L (136-145) 01/20/17 06:50 Potassium 3.9 mEq/L (3.5-5.1) 01/20/17 06:50 Chloride 105 mEq/L (98-107) 01/20/17 06:50 Carbon Dioxide 25.2 mEq/L (21.0-31.0) 01/20/17 06:50 Anion Gap 14.7 (7.0-16.0) 01/20/17 06:50 BUN 39 mg/dL (7-25) H 01/20/17 06:50 Creatinine 7.5 mg/dL (0.7-1.3) H* 01/20/17 06:50 Est GFR ( Amer) 10.0 ml/min (>90) 01/20/17 06:50 Est GFR (Non-Af Amer) 8.3 ml/min 01/20/17 06:50 BUN/Creatinine Ratio 5.2 01/20/17 06:50 Glucose 65 mg/dL (70-105) L 01/20/17 06:50 POC Glucose 131 MG/DL (70 - 105) H 01/20/17 11:23 Hemoglobin A1c % 5.5 % (4.0-6.0) 01/17/17 17:50 Calcium 9.6 mg/dL (8.6-10.3) 01/20/17 06:50 Total Bilirubin 0.6 mg/dL (0.3-1.0) 01/20/17 06:50 AST 6 U/L (13-39) L 01/20/17 06:50 ALT < 3 U/L (7-52) L 01/20/17 06:50 Alkaline Phosphatase 83 U/L (34-104) 01/20/17 06:50 Total Protein 6.6 gm/dL (6.0-8.3) 01/20/17 06:50 Albumin 3.6 gm/dL (4.2-5.5) L 01/20/17 06:50 Globulin 3.0 gm/dL 01/20/17 06:50 Albumin/Globulin Ratio 1.2 (1.0-1.8) 01/20/17 06:50 Random Vancomycin 11.0 ug/mL (5.0-40.0) 01/19/17 05:45 Hepatitis A IgM Ab Negative (Negative) 01/18/17 05:33 Hep Bs Antigen Negative (Negative) 01/18/17 05:33 Hep B Core IgM Ab Negative (Negative) 01/18/17 05:33 Hepatitis C Antibody <0.1 s/co ratio (0.0-0.9) 01/18/17 05:33 - Physical Exam Vitals and I&O: Vital Signs Temp 98.2 F 01/20/17 12:49 Pulse 81 01/20/17 12:49 Resp 18 01/20/17 12:49 BP 107/62 01/20/17 12:49 Pulse Ox 98 01/20/17 12:49 Intake & Output 01/19/17 01/20/17 01/20/17 18:59 06:59 18:59 Intake Total 220 50 50 Output Total 0 Balance 220 50 50 Weight (lbs) 90.775 kg Intake: Oral 220 50 50 Output: Urine 0 Other: # Voids 1 1 # Bowel Movements 0 Active Medications: Current Medications Acetaminophen/Hydrocodone Bitart ([place] 10 Mg/325 Mg) 1 tab PO Q4H PRN PRN Reason: Pain (Mild) Stop: 03/19/17 05:18 Allopurinol (Zyloprim) 300 mg PO DAILY [facility] Stop: 03/19/17 08:59 Last Admin: 01/20/17 09:19 Dose: 300 mg Aspirin (Aspirin Chewable) 81 mg PO DAILY [facility] Stop: 03/19/17 08:59 Last Admin: 01/20/17 09:20 Dose: 81 mg Atropine Sulfate (Isopto Atropine 1% Ophth Soln) 1 drop LEFT EYE BID [facility] Stop: 03/19/17 08:59 Last Admin: 01/20/17 09:19 Dose: 1 drop Calcium Acetate (Phoslo) 667 mg PO TID [facility] Stop: 03/19/17 08:59 Last Admin: 01/20/17 09:19 Dose: 667 mg Cholecalciferol (Vitamin D3) 1,000 iu PO BID [facility] Stop: 03/19/17 08:59 Last Admin: 01/20/17 09:19 Dose: 1,000 iu Docusate Sodium (Colace) 100 mg PO DAILY [facility] Stop: 03/19/17 08:59 Last Admin: 01/20/17 09:19 Dose: 100 mg Dorzolamide HCl (Trusopt 2% Ophth Soln) 1 drop EACH EYE BID [facility] Stop: 03/19/17 08:59 Last Admin: 01/20/17 09:18 Dose: 1 drop Escitalopram Oxalate (Lexapro) 10 mg PO DAILY [facility] PRN Reason: Protocol Stop: 03/19/17 08:59 Last Admin: 01/20/17 09:19 Dose: 10 mg Famotidine (Pepcid) 20 mg PO BIDAC [facility] Stop: 03/19/17 07:29 Last Admin: 01/20/17 09:20 Dose: 20 mg Folic Acid (Folate) 1 mg PO DAILY [facility] Stop: 03/19/17 08:59 Last Admin: 01/20/17 09:20 Dose: 1 mg Gabapentin (Neurontin) 100 mg PO DAILY [facility] Stop: 03/19/17 08:59 Last Admin: 01/20/17 09:19 Dose: 100 mg Heparin Sodium (Porcine) (Heparin) 5,000 units SUBQ Q12HR [facility] Stop: 03/19/17 08:59 Last Admin: 01/20/17 09:02 Dose: Not Given Latanoprost (Xalatan 0.005% Ophth Soln) 1 drop EACH EYE HS [facility] Stop: 03/19/17 20:59 Last Admin: 01/19/17 22:11 Dose: 1 drop Losartan Potassium (Cozaar) 50 mg PO DAILY [facility] Stop: 03/19/17 08:59 Last Admin: 01/20/17 09:20 Dose: Not Given Miscellaneous (Vancomycin Iv Per Pharmacy) 1 [facility] PRN PRN PRN Reason: PROTOCOL Stop: 03/18/17 20:13 Miscellaneous (Vte Chemical Prophylaxis Screen/ Admission) 1 [facility] PRN PRN PRN Reason: PROTOCOL Stop: 03/19/17 08:29 Timolol Maleate (Timoptic 0.5% Ophth Soln) 1 drop LEFT EYE BID [facility] Stop: 03/19/17 08:59 Last Admin: 01/20/17 09:19 Dose: 1 drop General: Alert, No acute distress HEENT: Atraumatic, Mucous membr. moist/pink Neck: Supple, +2 carotid pulse wo bruit Cardiovascular: Regular rate, Normal S1, Normal S2 Lungs: Clear to auscultation Abdomen: Bowel sounds, Soft Extremities: no Edema Neurological: Sensation intact Skin: no Rash Psych/Mental Status: Mood NL - Procedures Procedures: Procedures Procedure Code Date DRAINAGE OF RIGHT BUTTOCK, OPEN APPROACH [id number] 01/17/17 DRAINAGE OF SKIN ABSCESS 44220 01/17/17 Assessment/Plan - Problem List Patient Problems: All Active Problems Congestive heart failure (Acute) I50.9 DM w/o complication type II (Acute) E11.9 ESRD (end stage renal disease) (Acute) Essential hypertension (Acute) I10 Pain in right eye (Acute) H57.11 - Assessment Assessment: ESRD on HD right thigh/buttock abscess, S/P I&D Met alk Type 1 dm 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 S/P CVA Left Hemiparesis Ess HTN Anemia of CD - Plan Plan: Lab - Result Diagrams 01/18/17 06:33 01/18/17 06:33 Current Medications Acetaminophen/Hydrocodone Bitart ([place] 10 Mg/325 Mg) 1 tab PO Q4H PRN PRN Reason: Pain (Mild) Stop: 03/19/17 05:18 Allopurinol (Zyloprim) 300 mg PO DAILY [facility] Stop: 03/19/17 08:59 Last Admin: 01/19/17 08:39 Dose: 300 mg Aspirin (Aspirin Chewable) 81 mg PO DAILY [facility] Stop: 03/19/17 08:59 Last Admin: 01/19/17 08:39 Dose: 81 mg Atropine Sulfate (Isopto Atropine 1% Ophth Soln) 1 drop LEFT EYE BID [facility] Stop: 03/19/17 08:59 Last Admin: 01/19/17 09:09 Dose: 1 drop Calcium Acetate (Phoslo) 667 mg PO TID [facility] Stop: 03/19/17 08:59 Last Admin: 01/19/17 13:29 Dose: 667 mg Cholecalciferol (Vitamin D3) 1,000 iu PO BID [facility] Stop: 03/19/17 08:59 Last Admin: 01/19/17 09:30 Dose: 1,000 iu Docusate Sodium (Colace) 100 mg PO DAILY [facility] Stop: 03/19/17 08:59 Last Admin: 01/19/17 08:38 Dose: 100 mg Dorzolamide HCl (Trusopt 2% Ophth Soln) 1 drop EACH EYE BID [facility] Stop: 03/19/17 08:59 Last Admin: 01/19/17 09:09 Dose: 1 drop Escitalopram Oxalate (Lexapro) 10 mg PO DAILY [facility] PRN Reason: Protocol Stop: 03/19/17 08:59 Last Admin: 01/19/17 08:38 Dose: 10 mg Famotidine (Pepcid) 20 mg PO BIDAC [facility] Stop: 03/19/17 07:29 Last Admin: 01/19/17 08:38 Dose: 20 mg Folic Acid (Folate) 1 mg PO DAILY [facility] Stop: 03/19/17 08:59 Last Admin: 01/19/17 08:39 Dose: 1 mg Gabapentin (Neurontin) 100 mg PO DAILY [facility] Stop: 03/19/17 08:59 Last Admin: 01/19/17 08:39 Dose: 100 mg Heparin Sodium (Porcine) (Heparin) 5,000 units SUBQ Q12HR [facility] Stop: 03/19/17 08:59 Last Admin: 01/19/17 13:19 Dose: Not Given Latanoprost (Xalatan 0.005% Oph Soln) 1 drop EACH EYE HS [facility] Stop: 03/19/17 20:59 Last Admin: 01/18/17 22:18 Dose: 1 drop Losartan Potassium (Cozaar) 50 mg PO DAILY [facility] Stop: 03/19/17 08:59 Last Admin: 01/19/17 08:39 Dose: 50 mg Miscellaneous (Vancomycin Iv Per Pharmacy) 1 ea PRN PRN PRN Reason: PROTOCOL Stop: 03/18/17 20:13 Miscellaneous (Vte Chemical Prophylaxis Screen/ Admission) 1 ea PRN PRN PRN Reason: PROTOCOL Stop: 03/19/17 08:29 Timolol Maleate (Timoptic 0.5% Oph Soln) 1 drop LEFT EYE BID [facility] Stop: 03/19/17 08:59 Last Admin: 01/19/17 09:09 Dose: 1 drop schedule for hd today continue ABx f/u cultures
--- NOTE | 2017-01-23 22:28 | Discharge Summary ---
DATE OF DISCHARGE: 01/20/2017 PRELIMINARY DIAGNOSES: 1. Right inguinal inner thigh abscess. 2. End-stage renal disease, on hemodialysis. 3. Hypertension. 4. Diabetes mellitus type 2. 5. Hyperlipidemia. 6. Cerebrovascular accident. 7. Anemia secondary to chronic disease. DISCHARGE DIAGNOSES: 1. Right inguinal abscess, status post incision and drainage, now improved. 2. End-stage renal disease, on hemodialysis. 3. Hypertension. 4. Diabetes type 2. 5. Hyperlipidemia. 6. Cerebrovascular accident. 7. Anemia due to chronic disease. BRIEF HISTORY OF PRESENT ILLNESS: This is a 46-year-old male who presents to [facility] ER from group home facility for right inner thigh abscess which was noted by the staff at the shelter a few days prior to admission. The patient was complaining of pain and swelling behind his right scrotum towards the anterior anus with localized swelling and pain. The patient denies any changes in bowel habits. Has a history of chronic type 1 diabetes with blindness, also has chronic renal failure, on hemodialysis, was noted to have some swelling and pain around the tailbone area a few days prior to admission, was treated with oral antibiotics, but did not show any improvement and thus was transferred to [facility] for further evaluation and treatment. While in the ER, the patient had some initial lab work that showed a white count of 7.2, hemoglobin 10.2, hematocrit 30.4 and platelets 104. Sodium was 136, potassium 3.7, chloride 100, bicarbonate ____, BUN 42, creatinine 8.2 with glucose of 98. AST was 6, ALT was less than 3. Albumin 4.0. Hemoglobin A1c was 5.5. The patient underwent an I and D while in the ER and some serosanguineous fluid was collected and sent for culture. The patient was initially started on Ancef while in the ER and was subsequently admitted for further evaluation and treatment. HOSPITAL COURSE: The patient was seen and evaluated by Dr. Mauro for surgical consult as well as Dr. Bailey for Nephrology consult. The patient improved during his hospital stay and was started on vancomycin per pharmacy. His initial white count noted was normal at 7.2 and repeat lab work showed improvement of his white count, which improved to 5.0. The patient did have dialysis during his hospital stay, which was supervised by Dr. Bailey. He was seen and evaluated by Dr. Mauro and was continued on his current treatment of wound care dressing changes as well as IV antibiotics. He was subsequently discharged in stable condition back to the shelter with the same orders. JOB# [id number]
== END 2017-01-20 16:05 | DRG 579 ==
LOC: ER 17:22 → MSI 20:10
PROVIDERS: ADMIT Family Medicine; ATTEND Family Medicine
PROC: 0J990ZZ Drainage of Buttock Subcutaneous Tissue and Fascia, Open Approach (ICD-10-PCS; principal; 2017-01-17)
PROC: 5A1D60Z (ICD-10-PCS; 2017-01-18)
DX: L02.31 Cutaneous abscess of buttock (principal); N18.6 End stage renal disease; I13.2 Hypertensive heart and chronic kidney disease with heart failure and with stage 5 chronic kidney disease, or end stage renal disease; E87.3 Alkalosis; I12.0 Hypertensive chronic kidney disease with stage 5 chronic kidney disease or end stage renal disease; I69.354 Hemiplegia and hemiparesis following cerebral infarction affecting left non-dominant side; E10.22 Type 1 diabetes mellitus with diabetic chronic kidney disease; E78.5 Hyperlipidemia, unspecified; I50.9 Heart failure, unspecified; E10.69 Type 1 diabetes mellitus with other specified complication; L03.317 Cellulitis of buttock; H54.8 Legal blindness, as defined in USA; D63.1 Anemia in chronic kidney disease; Z95.0 Presence of cardiac pacemaker; Z99.2 Dependence on renal dialysis
CPT/HCPCS: 36415-UA; 80053-TC; 80074-90; 80202-TC; 82948-90; 83036-90; 85025-TC; 87070-90; 90937; 96375; J0690; J1644; J2405; J3370; J7030; X6444; X7704; Z7610

== ENCOUNTER 2018-08-20 20:59 | Emergency (ER) | payer MEDICARE, MEDICAID ==
--- NOTE | 2018-08-20 21:21 | ED Physician Chart ---
ED Chief Complaint/HPI - Patient Information Date Seen:: 08/20/18 Time Seen:: 21:21 Chief Complaint:: "Suicidal ideation" History of Present Illness:: 47 yo male with history of hypertension, atrial fibrillation with dual chamber pacemaker, DM II, ESRD on HD MWF, was brought from SNF to ER for evaluation of possible suicidal ideation. Patient stated that "I was singing the song 'Stair away to haven' in room when my roommate reported me." Allergies:: Allergies Allergy/AdvReac Type Severity Reaction Status Date / Time No Known Allergies Allergy Verified 08/20/18 21:17 ED Review of Systems - Review of Systems General/Constitutional: No fever Skin: No bruising Head: No headache Eyes: No pain ENT: No nasal drainage Neck: No neck pain Cardio Vascular: No chest pain Pulmonary: No SOB GI: No nausea, No vomiting Musculoskeletal: No bone or joint pain Neurological: Weakness ED Past Medical History - Past Medical History Past Medical History: DM, CVA/TIA, Dyslipidemia, PUD/GERD, Other (blind, atrial fibrillation with dual chamber pacemaker) Social History: Non Smoker, No Alcohol, No Drug Use Surgical History: Pacemaker, other (Left 4th, 5th toe amputation, right forearm AV fistula) Psychiatricy History: Depression Family Medical History - Family Member Father Hx Family Cancer: No Hx Family Congestive Heart Failure: No Hx Family Hypertension: No Hx Family Diabetes: No Hx Family Seizures: No Hx Family AIDS: No Hx Family COPD: No ED Physical Exam - Physical Examination General/Constitutional: Awake, Alert Head: Atraumatic Other Eyes comments:: Bilateral eyes blind Skin: No ecchymosis ENMT: Nasal exam nl Neck: No nuchal rigidity Respiratory: Nl effort/Exclusion, Clear to Auscultation, No Wheeze/Rhonchi/Rales Cardio Vascular: RRR, No murmur, gallop, rubs, NL S1 S2 GI: No tenderness/rebounding/guarding Other Extremities comments:: Right forearm AV fistula intact Neuro/Psych: Alert/oriented Other Neuro/Psych comments:: RUE 5/5, LUE 5/5, RLE 3/5, LLE 5/5 ED Labs/Radiology/EKG Results - Lab Results Results: Laboratory Last Values WBC 5.9 Th/cmm (4.8-10.8) 08/20/18 21:30 RBC 3.44 Mil/cmm (4.30-5.70) L 08/20/18 21:30 Hgb 11.1 gm/dL (12-16) L 08/20/18 21: Hct 34.5 % (41.0-60) L 08/20/18 21:30 MCV 100.5 fl (80-99) H 08/20/18 21: MCH 32.2 pg (26.0-30.0) H 08/20/18: MCHC Differential 32.0 pg (28.0-36.0) 08/20/18 21: RDW 16.2 % (11.5-20.0) 08/20/18: Plt Count 109 Th/cmm (150-400) L 08/20/18 21: MPV 9.5 fl 08/20/18 21: Neutrophils % 73.1 % (40.0-80.0) 08/20/18: Lymphocytes % 14.6 % (20.0-50.0) L 08/20/18 21: Monocytes % 8.3 % (2.0-10.0) 08/20/18 21: Eosinophils % 2.8 % (0.0-5.0) 08/20/18: Basophils % 1.2 % (0.0-2.0) 08/20/18 21: PT 9.5 SECONDS (9.5-11.5) 08/20/18 21: INR 0.91 (0.5-1.4) 08/20/18 21: PTT (Actin FS) 33.0 SECONDS (26.0-38.0) 08/20/18 21:30 Sodium 142 mEq/L (136-145) 08/20/18 21: Potassium 3.8 mEq/L (3.5-5.1) 08/20/18 21: Chloride 101 mEq/L (98-107) 08/20/18 21: Carbon Dioxide 30.8 mEq/L (21.0-31.0) 08/20/18 21: Anion Gap 14.0 (7.0-16.0) 08/20/18 21: BUN 47 mg/dL (7-25) H 08/20/18 21:30 Creatinine 6.7 mg/dL (0.7-1.3) H* 08/20/18 21:30 Est GFR ( Amer) 11.4 ml/min (>90) 08/20/18 21:30 Est GFR (Non-Af Amer) 9.4 ml/min 08/20/18 21:30 BUN/Creatinine Ratio 7.0 08/20/18 21:30 Glucose 127 mg/dL (70-105) H 08/20/18 21:30 Calcium 9.5 mg/dL (8.6-10.3) 08/20/18 21:30 Total Bilirubin 0.6 mg/dL (0.3-1.0) 08/20/18 21:30 AST 11 U/L (13-39) L 08/20/18 21:30 ALT 4 U/L (7-52) L 08/20/18 21:30 Alkaline Phosphatase 92 U/L (34-104) 08/20/18 21:30 Troponin I 0.09 ng/mL (0.01-0.05) H* 08/20/18 21:30 B-Natriuretic Peptide 882.0 pg/mL (5.0-100.0) H 08/20/18 21:30 Total Protein 6.9 gm/dL (6.0-8.3) 08/20/18 21:30 Albumin 4.3 gm/dL (4.2-5.5) 08/20/18 21:30 Globulin 2.6 gm/dL 08/20/18 21:30 Albumin/Globulin Ratio 1.7 (1.0-1.8) 08/20/18 21:30 TSH 5.64 uIU/ml (0.34-5.60) H 08/20/18 21:30 - Radiology Results Results: CXR: Cardiomegaly, dual chamber pacemaker, no focal consolidation - EKG Interpretations EKG Time:: 21:24 Rate & Rhythm: 71 bpm, atrial-sensed ventricular-paced rhythm Comments:: Abnormal EKG ED Assessment - Assessment General Assessment: ESRD on HD DM II Hypertension Anemia, macrocytic Hypothyroidism Blind Atrial fibrillation with dual chamber pacemaker Right lower extremity weakness Assessment/Comments:: CBC, CMP, BNP, Trop EKG, CXR Discharge to SNF F/u PCP Continue hemodialysis ED Septic Shock - . Is Septic Shock (SBP<90, OR Lactate>4 mmol\\L) present?: No ED Reassessment (Disposition) - Reassessment Reassessment:: Patient did not have any suicidal ideation or attempt at ER. Reassessment Condition:: Improved - Patient Disposition Discharge/Transfer:: [facility] - SNF
[2018-08-20 21:37] LABS: % BASOPHILS 1.2 % (0.0-2.0); % EOSINOPHILS 2.8 % (0.0-5.0); % LYMPHOCYTES 14.6 % (20.0-50.0); % MONOCYTES 8.3 % (2.0-10.0); % NEUTROPHILS 73.1 % (40.0-80.0); BASOPHILE ABSOLUTE 0.1 Th/cumm (0-0.2); EOSINOPHILE ABSOLUTE 0.2 Th/cmm (0.1-0.4); HEMATOCRIT 34.5 % (41.0-60); HEMOGLOBIN 11.1 gm/dL (12-16); LYMPHOCYTE ABSOLUTE 0.9 Th/cmm (1.5-3.0); MEAN CELL VOLUME 100.5 fl (80-99); MEAN CORPUSCULAR HEMOGLOBIN 32.2 pg (26.0-30.0); MEAN PLATELET VOLUME 9.5 fl; MONOCYTE ABSOLUTE 0.5 Th/cmm (0.3-1.0); NEUTROPHILE ABSOLUTE 4.2 Th/cmm (1.8-8.0); PLATELET COUNT 109 Th/cmm (150-400); RED BLOOD COUNT 3.44 Mil/cmm (4.30-5.70); RED CELL DISTRIBUTION WIDTH 16.2 % (11.5-20.0); WHITE BLOOD COUNT 5.9 Th/cmm (4.8-10.8)
[2018-08-20 21:55] LABS: INR 0.91 (0.5-1.4); PROTHROMBIN TIME (TEST) 9.5 SECONDS (9.5-11.5)
[2018-08-20 21:56] LABS: ALB/GLOB RATIO 1.7 (1.0-1.8); ALBUMIN 4.3 gm/dL (4.2-5.5); BILIRUBIN,TOTAL 0.6 mg/dL (0.3-1.0); CALCIUM SERUM 9.5 mg/dL (8.6-10.3); CARBON DIOXIDE 30.8 mEq/L (21.0-31.0); GFR AFRICAN-AMERICAN 11.4 ml/min (>90); GFR NON AFRICAN-AMERICAN 9.4 ml/min; POTASSIUM SERUM 3.8 mEq/L (3.5-5.1); TOTAL PROTEIN,SERUM 6.9 gm/dL (6.0-8.3)
[2018-08-20 21:58] LABS: CREATININE - SERUM 6.7 mg/dL (0.7-1.3)
--- NOTE | 2018-08-21 08:42 | Diagnostic Imaging Report ---
CHEST X-RAY: AP view INDICATION: Shortness of breath COMPARISON: None FINDINGS: Left chest wall AICD apparatus is noted with leads in the region of the right atrium, right ventricle, and epicardial lead. Cardiomegaly is noted with atherosclerosis. Left basal density is noted. The osseous structures are intact. IMPRESSION: Left basal density which may be due to superimposition of soft tissue structures and patient's cardiomegaly. Small left effusion and left basal atelectasis versus infiltrate cannot be completely excluded. If indicated PA and lateral views may be obtained for further assessment. Cardiomegaly and atherosclerotic vascular disease. AICD noted.
== END 2018-08-21 00:37 ==
LOC: ER 20:59
DX: I12.0 Hypertensive chronic kidney disease with stage 5 chronic kidney disease or end stage renal disease (principal); E10.22 Type 1 diabetes mellitus with diabetic chronic kidney disease; N18.6 End stage renal disease; D53.9 Nutritional anemia, unspecified; E03.9 Hypothyroidism, unspecified; I48.91 Unspecified atrial fibrillation; M62.81 Muscle weakness (generalized); R45.851 Suicidal ideations; K21.9 Gastro-esophageal reflux disease without esophagitis; F32.9 Major depressive disorder, single episode, unspecified; I25.119 Atherosclerotic heart disease of native coronary artery with unspecified angina pectoris
CPT/HCPCS: 36415-UA; 71045-TC; 80053-TC; 83880-TC; 84443-TC; 84484-TC; 85025-TC; 85610-TC; 93005; Z7502

== ENCOUNTER 2018-09-26 14:22 | Inpatient (IN) | payer MEDICARE, MEDICAID ==
--- NOTE | 2018-09-26 15:12 | ED Physician Chart ---
ED Chief Complaint/HPI - Patient Information Date Seen:: 09/26/18 Time Seen:: 15:00 Chief Complaint:: low back pain History of Present Illness:: Patient's had low back pain for 6 days. Pain occurs almost exclusively when he coughs. He is also had a cough for 6 days. Patient was given one [place] 4 days ago which relieved the pain. Since then patient has been offered plain Tylenol which does not relieve the pain. No recent trauma. Allergies:: Allergies Allergy/AdvReac Type Severity Reaction Status Date / Time No Known Allergies Allergy Verified 08/20/18 21:17 Vitals:: Vital Signs - 8 hr 09/26/18 14:51 Temp 98.2 F HR 97 RR 16 BP 133/78 O2 Sat % 97 Historian:: Patient ED Review of Systems - Review of Systems General/Constitutional: No fever, No chills, No weight loss, No weakness, No diaphoresis, No edema, No loss of appetite Skin: No skin lesions, No rash, No bruising Head: No headache, No light-headedness Eyes: No pain, No diplopia ENT: No earache, No nasal drainage, No sore throat, No tinnitus Neck: No neck pain, No swelling, No thyromegaly, No stiffness, No mass noted Cardio Vascular: No chest pain, No palpitations, No PND, No orthopnea, No edema Pulmonary: No SOB, No cough, No sputum, No wheezing GI: No nausea, No vomiting, No diarrhea, No pain, No melena, No hematochezia, No constipation, No hematemesis G/U: No dysuria, No frequency, No hematuria Musculoskeletal: Back pain Endocrine: No polyuria, No polydipsia Psychiatric: No prior psych history, No depression, No anxiety, No suicidal ideation Hematopoietic: No bruising, No lymphadenopathy Allergic/Immuno: No urticaria, No angioedema Neurological: No syncope, No focal symptoms, No weakness, No paresthesia, No headache, No seizure, No dizziness, No confusion, No vertigo ED Past Medical History - Past Medical History Past Medical History: HTN, DM, CAD, Other (blind for 1-1/2 years; history of atrial fibrillation; major depression; gout; renal failure on dialysis Sunday) Family History: None Social History: Non Smoker, No Alcohol Surgical History: other (dialysis shunt; eye surgery; pacemaker) Medication: Reviewed Family Medical History - Family Member Father History Unknown: Yes Hx Family Cancer: No Hx Family Congestive Heart Failure: No Hx Family Hypertension: No Hx Family Diabetes: No Hx Family Seizures: No Hx Family AIDS: No Hx Family COPD: No ED Physical Exam - Physical Examination General/Constitutional: Awake, Well-developed, well-nourished, Alert Head: Atraumatic Other Eyes comments:: Keeps eyes closed Skin: No rash ENMT: Nasal exam nl, Lips, teeth, gums nl Neck: No nuchal rigidity Respiratory: Nl effort/Exclusion, Clear to Auscultation, No Wheeze/Rhonchi/Rales Cardio Vascular: RRR, No murmur, gallop, rubs, NL S1 S2 GI: No tenderness/rebounding/guarding, No organomegaly, No hernia, Normal BS's, Nondistended, No mass/bruits Extremities: No edema, Normal digits & nails Other Extremities comments:: Passive straight leg raising of 80 bilaterally; deep tendon reflexes knees and ankles 2.5 out of 4 Neuro/Psych: No focal deficits ED Labs/Radiology/EKG Results - Lab Results Results: Abnormal Lab Results 09/26/18 09/26/18 15:19 15:19 WBC 4.9 RBC 2.90 L Hgb 9.2 L Hct 29.2 L MCV 100.5 H MCH 31.6 H MCHC Differential 31.5 RDW 15.3 Plt Count 142 L MPV 9.3 Neutrophils % 72.7 Lymphocytes % 17.3 L Monocytes % 5.9 Eosinophils % 3.1 Basophils % 1.0 Sodium 144 Potassium 3.5 Chloride 100 Carbon Dioxide 33.5 H Anion Gap 14.0 BUN 43 H Creatinine 8.1 H* Est GFR ( Amer) 9.1 Est GFR (Non-Af Amer) 7.6 BUN/Creatinine Ratio 5.3 Glucose 89 Calcium 9.4 Magnesium 2.1 - EKG Interpretations Rate & Rhythm: paced beats at a rate is 96 ED Assessment - Assessment General Assessment: Plan was to discharge the patient back to his facility after receiving a [place] per my conversation with Dr. Idris Mckenna. Patient when so informed stated he did not want to return to that facility stating "I hate that place." I talked again to Dr. Mckenna and patient to be admitted. ED Septic Shock - . Is Septic Shock (SBP<90, OR Lactate>4 mmol\\L) present?: No - <6hrs of presentation: Vital Signs: Vital Signs - 8 hr 09/26/18 14:51 Temp 98.2 F HR 97 RR 16 BP 133/78 O2 Sat % 97 ED Reassessment (Disposition) - Reassessment Reassessment Condition:: Unchanged - Diagnosis Diagnosis:: Intractable back pain; diabetes; renal failure on dialysis; blindness - Patient Disposition Admitted to:: Med/Surg Spoke to:: Idris Mckenna Admitting Medical Physician:: Idris Mckenna Condition at Disposition:: Stable, Unchanged
[2018-09-26 15:25] LABS: % EOSINOPHILS 3.1 % (0.0-5.0); % LYMPHOCYTES 17.3 % (20.0-50.0); % MONOCYTES 5.9 % (2.0-10.0); % NEUTROPHILS 72.7 % (40.0-80.0); EOSINOPHILE ABSOLUTE 0.2 Th/cmm (0.1-0.4); HEMATOCRIT 29.2 % (41.0-60); HEMOGLOBIN 9.2 gm/dL (12-16); LYMPHOCYTE ABSOLUTE 0.8 Th/cmm (1.5-3.0); MEAN CELL VOLUME 100.5 fl (80-99); MEAN CORPUSCULAR HEMOGLOBIN 31.6 pg (26.0-30.0); MEAN CORPUSCULAR HGB CONC 31.5 pg (28.0-36.0); MEAN PLATELET VOLUME 9.3 fl; MONOCYTE ABSOLUTE 0.3 Th/cmm (0.3-1.0); NEUTROPHILE ABSOLUTE 3.6 Th/cmm (1.8-8.0); PLATELET COUNT 142 Th/cmm (150-400); RED CELL DISTRIBUTION WIDTH 15.3 % (11.5-20.0); WHITE BLOOD COUNT 4.9 Th/cmm (4.8-10.8)
[2018-09-26 15:44] LABS: CALCIUM SERUM 9.4 mg/dL (8.6-10.3); CARBON DIOXIDE 33.5 mEq/L (21.0-31.0); GFR AFRICAN-AMERICAN 9.1 ml/min (>90); GFR NON AFRICAN-AMERICAN 7.6 ml/min; MAGNESIUM 2.1 mg/dL (1.9-2.7); POTASSIUM SERUM 3.5 mEq/L (3.5-5.1)
[2018-09-26 16:07] LABS: CREATININE - SERUM 8.1 mg/dL (0.7-1.3)
[2018-09-26] MEDS ORDERED: Hydrocodone/APAP 5mg/325mg Tab PO ONE (16:56)
[2018-09-26] MEDS ORDERED: Hydrocodone/APAP 5mg/325mg Tab ONE (17:05)
[2018-09-26] MEDS ORDERED: Sodium Chloride 0.9% 1,000 ML IV SCH (20:42)
[2018-09-26] MEDS ORDERED: Hydrocodone/APAP 5mg/325mg Tab PO PRN (20:42)
[2018-09-26 20:43] VITALS: BP 134/73
[2018-09-27 01:57] LABS: URINE SOURCE CLEAN C
[2018-09-27 01:58] LABS: URINE BILIRUBIN NEGATIVE (NEGATIVE); URINE BLOOD NEGATIVE (NEGATIVE); URINE GLUCOSE (UA) NEGATIVE (NEGATIVE); URINE KETONE TRACE mg/dL (NEGATIVE); URINE LEUKOCYTE ESTERASE NEGATIVE (NEGATIVE); URINE NITRATE NEGATIVE (NEGATIVE); URINE PROTEIN 100 mg/dL (NEGATIVE); URINE UROBILINOGEN 0.2 E.U./dL (0.2 - 1.0)
[2018-09-27 02:09] LABS: URINE CLARITY CLEAR (CLEAR); URINE COLOR YELLOW; URINE MICROSCOPIC INDICATED? YES
[2018-09-27 02:12] LABS: URINE BACTERIA FEW /hpf (NONE SEEN); URINE EPITHELIAL CELLS FEW /lpf (FEW); URINE RBC 0-2 /hpf (0-5); URINE WBC 0-2 /hpf (0-5)
--- NOTE | 2018-09-27 05:56 | History and Physical ---
History of Present Illness - HPI Chief Complaint: intractable back pain HPI: 47 y/o male who presents to [facility] ER for low back pain for the past 6 days. Patient is a resident at a SNF and states that he has been offered Tylenol for his pain without relief. The patient has a history of HTN, DM, CAD, ESRD on HD. GERD, legally blind, h/o ME, S/P AICD, Type 2 DM, Glaucoma, Gout, Major Depressive d/o Hyperlipidemia, A Fib. Patient is unhappy with his current place of residence and has stated he would like to be transfer elsewhere. Patient was subsequently admitted for further evaluation and treatment. Vital Signs: Last Vital Signs Temp 97.8 F 09/27/18 01:00 Pulse 97 09/27/18 01:00 Resp 18 09/27/18 01:00 BP 120/71 09/27/18 01:00 Pulse Ox 92 09/27/18 01:00 Past Medical History Cardiovascular: Report: AFIB, CAD, HTN, Hyperlipidemia Pulmonary: Report: No Pertinent Hx [employer]: Report: No Pertinent Hx GI: Report: GERD Psych: Report: Depression Musculoskeletal: Report: Low Back Pain (Intractable) Rheumatologic: Report: No pertinent Hx Infectious Disease: Report: No Pertinent Hx Renal/: Report: Chronic Renal Failure Endocrine: Report: Diabetes Dermatology: Report: No Pertinent Hx - Past Surgical History Past Surgical History: No pertinent Hx Family Medical History - Family Member Father History Unknown: Yes Name:: father Living Status: Hx Family Cancer: No Hx Family Congestive Heart Failure: No Hx Family Hypertension: No Hx Family Diabetes: No Hx Family Seizures: No Hx Family AIDS: No Hx Family COPD: No Social History Smoke: No Alcohol: None Drugs: None Lives: Residential - Medications Home Medications: Home Medication Medication Instructions Recorded Type Cholecalciferol (Vitamin D3) 1 tab PO BID 01/17/17 History [Nature's Bounty Vitamin D 120 mg-1000 Iu] Docusate Sodium [Colace] 100 mg PO TID 01/17/17 History Latanoprost 0.005% Ophth Soln 1 drop RIGHT EYE HS 01/17/17 History [Xalatan 0.005% Ophth Soln] acetaZOLAMIDE [Diamox] 250 mg PO BID 01/17/17 History Allopurinol [Zyloprim*] 300 mg PO DAILY #0 tab 01/20/17 Rx Folic Acid [Folate*] 1 mg PO DAILY #0 tab 01/20/17 Rx Gabapentin [Neurontin*] 100 mg PO DAILY #0 cap 01/20/17 Rx Acetaminophen [Tylenol] 650 mg PO Q4HR PRN 08/20/18 History Amiodarone [Cordarone] 200 mg PO BID 08/20/18 History Atorvastatin Calcium [Lipitor] 40 mg PO HS 08/20/18 History Atropine 1% Ophth Soln [Isopto 1 drop RIGHT EYE BID 08/20/18 History Atropine 1% Ophth Soln] Brimonidine 0.2% Ophth Soln 1 drop RIGHT EYE TID 08/20/18 History [Alphagan 0.2% Ophth Soln] Carvedilol [Coreg] 3.125 mg PO BID 08/20/18 History Clopidogrel Bisulfate [Plavix] 75 mg PO DAILY 08/20/18 History Dorzolamide HCl/Timolol Maleat 1 drop RIGHT EYE BID 08/20/18 History [Cosopt Eye Drops] Ferric Citrate [Auryxia] 1 tab PO TID 08/20/18 History Folic Acid/Vit Bcomp,C 1 mg PO DAILY 08/20/18 History [Nephro-Carlos Tablet] Nitroglycerin 0.4 mg SL UD 08/20/18 History Polyvinyl Alcohol [Liquitears] 1 drop EACH EYE BID PRN 08/20/18 History Ranitidine HCl 150 mg PO BIDAC 08/20/18 History Sevelamer Carbonate [Renvela] 800 mg PO TIDWM 08/20/18 History Vitamin B Complex 1 tab PO DAILY 08/20/18 History Benzonatate [Tessalon] 1 tab PO Q6H PRN 09/26/18 History Timolol 0.5% Ophth Soln [Timoptic 1 drop RIGHT EYE BID 09/26/18 History 0.5% Ophth Soln] - Allergies Allergies/Adverse Reactions: Allergies Allergy/AdvReac Type Severity Reaction Status Date / Time No Known Allergies Allergy Verified 08/20/18 21:17 Review of Systems - Review of Systems Constitutional: Report: No Significant Eyes: Report: No Significant ENT: Report: No Significant Respiratory: Report: No Significant Cardiovascular: Report: No Significant Gastrointestinal: Report: No Significant Genitourinary: Report: No Significant Musculoskeletal: Report: Back Pain Skin: Report: No Significant Neurological: Report: No Significant Physical Exam - Physical Exam HEENT: Report: Ears Nose Throat within normal limits, Pharnyx within normal limits Neck: Report: Within normal limits Cardiovascular Systems: Report: +s1/s2 noted, Regular, Rate and Rhythm Respiratory: Report: Breath Sounds are within normal limits Abdomen: Report: Non-tender to palpation Back: Report: Inspection of back is within normal limits. Extremities: Report: Non-tender to palpation. Skin: Report: Color of skin is within normal limits - Lab Results All Lab Results last 24 hours: Laboratory Results - last 24 hr 09/26/18 09/26/18 09/27/18 15:19 15:19 01:46 WBC 4.9 RBC 2.90 L Hgb 9.2 L Hct 29.2 L MCV 100.5 H MCH 31.6 H MCHC Differential 31.5 RDW 15.3 Plt Count 142 L MPV 9.3 Neutrophils % 72.7 Lymphocytes % 17.3 L Monocytes % 5.9 Eosinophils % 3.1 Basophils % 1.0 Sodium 144 Potassium 3.5 Chloride 100 Carbon Dioxide 33.5 H Anion Gap 14.0 BUN 43 H Creatinine 8.1 H* Est GFR ( Amer) 9.1 Est GFR (Non-Af Amer) 7.6 BUN/Creatinine Ratio 5.3 Glucose 89 Calcium 9.4 Magnesium 2.1 Urine Source CLEAN C Urine Color YELLOW Urine Clarity CLEAR Urine pH 8.0 Ur Specific [employer] 1.015 Urine Protein 100 H Urine Glucose (UA) NEGATIVE Urine Ketones TRACE Urine Blood NEGATIVE Urine Nitrate NEGATIVE Urine Bilirubin NEGATIVE Urine Urobilinogen 0.2 Ur Leukocyte Esterase NEGATIVE Urine RBC 0-2 H Urine WBC 0-2 Ur Epithelial Cells FEW Urine Bacteria FEW - Assessment Assessment: Intractable low back pain HTN DM CAD ESRD on HD GERD legally blind h/o ME S/P AICD Type 2 DM Glaucoma Gout Major Depressive d/o Hyperlipidemia A Fib - Plan Plan: repeat CBC, CMP continue home meds nephrology consult cardiology consult pain control
[2018-09-27 06:01] LABS: % BASOPHILS 0.9 % (0.0-2.0); % EOSINOPHILS 4.2 % (0.0-5.0); % LYMPHOCYTES 17.7 % (20.0-50.0); % MONOCYTES 5.8 % (2.0-10.0); % NEUTROPHILS 71.4 % (40.0-80.0); EOSINOPHILE ABSOLUTE 0.2 Th/cmm (0.1-0.4); HEMATOCRIT 27.6 % (41.0-60); HEMOGLOBIN 8.9 gm/dL (12-16); LYMPHOCYTE ABSOLUTE 0.9 Th/cmm (1.5-3.0); MEAN CELL VOLUME 101.6 fl (80-99); MEAN CORPUSCULAR HEMOGLOBIN 32.6 pg (26.0-30.0); MEAN CORPUSCULAR HGB CONC 32.1 pg (28.0-36.0); MEAN PLATELET VOLUME 9.5 fl; MONOCYTE ABSOLUTE 0.3 Th/cmm (0.3-1.0); NEUTROPHILE ABSOLUTE 3.7 Th/cmm (1.8-8.0); PLATELET COUNT 129 Th/cmm (150-400); RED BLOOD COUNT 2.72 Mil/cmm (4.30-5.70); RED CELL DISTRIBUTION WIDTH 15.4 % (11.5-20.0); WHITE BLOOD COUNT 5.1 Th/cmm (4.8-10.8)
[2018-09-27] MEDS ORDERED: Promethazine DM 6.25/15mg-5mL 5 ML SYR PO PRN (06:03)
[2018-09-27 06:18] LABS: ALB/GLOB RATIO 1.3 (1.0-1.8); ALBUMIN 3.5 gm/dL (4.2-5.5); ALKALINE PHOSPHATASE 57 U/L (34-104); ANION GAP 14.1 (7.0-16.0); BILIRUBIN,TOTAL 0.6 mg/dL (0.3-1.0); BUN - UREA NITROGEN 48 mg/dL (7-25); CALCIUM SERUM 9.4 mg/dL (8.6-10.3); CARBON DIOXIDE 30.5 mEq/L (21.0-31.0); CHLORIDE 103 mEq/L (98-107); GFR AFRICAN-AMERICAN 8.6 ml/min (>90); GFR NON AFRICAN-AMERICAN 7.1 ml/min; GLUCOSE 80 mg/dL (70-105); POTASSIUM SERUM 3.6 mEq/L (3.5-5.1); SGOT 8 U/L (13-39); SGPT/ALT < 3 U/L (7-52); SODIUM SERUM 144 mEq/L (136-145); TOTAL PROTEIN,SERUM 6.3 gm/dL (6.0-8.3)
[2018-09-27 06:21] LABS: CREATININE - SERUM 8.5 mg/dL (0.7-1.3)
--- NOTE | 2018-09-27 08:44 | Diagnostic Imaging Report ---
Lumbar spine (3 views) HISTORY: Pain There is a scoliosis of the thoracolumbar spine convexity to the left. Diffuse degenerative changes are seen with hypertrophic spur formation noted about the endplates of all vertebrae. Narrowing of all intervertebral disc spaces. Extensive atherosclerotic calcification noted throughout the abdominal aorta and iliac arteries. IMPRESSION: 1. Diffuse degenerative changes 2. Scoliosis 3. Extensive atherosclerotic vascular changes. The findings are unremarkable in view of the patient's age. (Does patient have a history of diabetes?).
[2018-09-27] MEDS: Vitamin B Complex w/Vitamin C Tab PO SCH (08:53)
[2018-09-27] MEDS ORDERED: FERRIC CITRATE PO SCH (09:00)
[2018-09-27] MEDS ORDERED: Non-Formulary Item 1 EA (Vitamin B Complex [Vitamin B Complex] 1 TAB) PO SCH (09:00)
[2018-09-27] MEDS: Polyvinyl Alcohol Ophth Soln 15 mL Bottle EACH EYE PRN ×2 (09:02→21:31)
[2018-09-27] MEDS ORDERED: VTE Chemical Prophylaxis Screen/Admission MC PRN (12:57)
--- NOTE | 2018-09-27 17:04 | Consultation ---
DATE OF CONSULTATION: 09/27/[address] Mckenna. HISTORY OF PRESENT ILLNESS: This is a 47-year-old male patient who has been complaining of severe low back pain. Following this, the patient came to the Emergency Room and the patient is admitted. PAST MEDICAL HISTORY: Atrial fibrillation; sick sinus syndrome with pacemaker and AICD placement; diabetes mellitus type 2; diabetic retinopathy, legally blind; diabetic CKD stage IV; end-stage renal disease on dialysis; glaucoma; and gout. FAMILY HISTORY: Unremarkable. SOCIAL HISTORY: No history of smoking, alcohol abuse. ALLERGIES: No known allergies. PHYSICAL EXAMINATION: VITAL SIGNS: Blood pressure 150/80, pulse 70, and respirations 20. HEAD: Normocephalic. No lumps or bumps. EYES: Pupils equal, reactive to light. Fundi show AV nicking, sclerae white, conjunctivae pink. NECK: Carotid 2+. Normal upstroke. JVD flat. Thyroid not palpable. Lymph nodes not palpable. CHEST: Shows increased AP diameter. No kyphosis, scoliosis. LUNGS: Bilateral bronchovesicular breath sounds. HEART: PMI fifth intercostal space with lateral to midclavicular line. S1, S2, S3. Soft S4. S1 irregular. Systolic murmur. ABDOMEN: Soft. Liver, spleen not palpable. No organomegaly. Bowel sounds active. NEUROLOGIC: No focal neurological deficit. EXTREMITIES: Peripheral pulses 1+. No pedal edema. CLINICAL IMPRESSION: 1. Low back pain, etiology unknown. 2. Severe scoliosis with degenerative joint disease. 3. Atrial fibrillation. 4. Sick sinus syndrome with pacemaker and AICD placement. 5. Diabetes mellitus type 2. 6. Diabetic retinopathy, legally blind. 7. Diabetic chronic kidney disease, stage V. 8. End-stage renal disease on dialysis. 9. Glaucoma. 10. Gout. 11. Major depression. PLAN: At the present time, we will get BNP level, echocardiogram for left ventricular function. Dialysis with ultrafiltration. JOB# [id number]
--- NOTE | 2018-09-27 19:30 | Consultation ---
DATE OF CONSULTATION: 09/27/2018 HISTORY OF PRESENT ILLNESS: This is a 47-year-old [place] male with past medical history of end-stage renal disease on hemodialysis, who came in because of severe lumbosacral pain. Six days prior to admission, the patient experienced lumbosacral pain, worse than before. This was exacerbated by movement and cough. He was initially on [place], but then switched to Tylenol. A few hours prior to admission, he could no longer tolerate the pain and was brought to the Emergency Room. His temperature was 98.2 with a white count of 4.9. Chest x-ray revealed DJD with scoliosis. He denied any trauma to his back. PAST MEDICAL HISTORY: 1. End-stage renal disease, on hemodialysis. 2. GERD. 3. Legally blind secondary to glaucoma. 4. Coronary artery disease. 5. Type 2 diabetes mellitus. 6. Essential hypertension. 7. Major depression. 8. Dysphagia. 9. Atrial fibrillation. 10. Gout. 11. Megaloblastic anemia. PAST SURGICAL HISTORY: Status post AICD. CURRENT MEDICATIONS: Acetaminophen, acetazolamide, allopurinol, amiodarone, atorvastatin, atropine, benzonatate, carvedilol, cholecalciferol, clopidogrel, docusate sodium, dorzolamide/timolol eyedrops, famotidine, folic acid, gabapentin, promethazine, sevelamer, Tylenol, vitamin B and vitamin C and D. ALLERGIES: No known drug allergies. SOCIAL HISTORY: Denied any history of alcohol or tobacco use. FAMILY HISTORY: Unknown at the present time. REVIEW OF SYSTEMS: GENERAL: The patient did complain of progressive weakness. He had no fever, nor chills. Appetite had been fair. HEENT: No headaches, nor dizziness. CARDIORESPIRATORY: No chest pain, palpitations, diaphoresis, cough, no shortness of breath. He does have a history of heart disease, atrial fibrillation. MUSCULOSKELETAL: Multiple joint arthralgias. GENITOURINARY: History of kidney failure, now on dialysis. Minimal urine output, but no dysuria nor hematuria. NEUROPSYCH: No seizure activity nor neuropathy. PHYSICAL EXAMINATION: GENERAL: The patient is awake, verbal. He is legally blind. VITAL SIGNS: His blood pressure is 141/76, pulse is 90, temperature 98 degrees. SKIN: Good turgor, warm, no rash, no jaundice appreciated. HEENT: Head: Normocephalic, atraumatic. Eyes: Unable to assess his extraocular muscles. Pupils are equal, round, reactive to light. Anicteric sclerae. Pale conjunctivae. Nose: Midline nasal septum. Mouth: Dry mucosa, adequate dentition. NECK: Supple, no adenopathy, no thyromegaly, no bruits. Trachea palpated in the midline. CHEST AND CARDIOVASCULAR: S1, S2. No rub, murmur, nor gallop appreciated. Point of maximal impulse fifth intercostal space, left midclavicular line. No abdominal or femoral bruits appreciated. LUNGS: Equal expansion. No use of accessory muscles. No supraclavicular retractions. Decreased breath sounds, but clear to auscultation without any wheeze. ABDOMEN: Mildly globular, soft. Positive for bowel sounds. No bruits either diastolic or systolic. RECTAL: This was deferred. GENITOURINARY: Normal appearing male genitalia. MUSCULOSKELETAL: No effusions present in his joints with adequate range of motion. EXTREMITIES: No evidence of any edema, cyanosis, nor clubbing with palpable femoral, but not fully palpable popliteal and dorsalis pedis pulses. He does have a right upper extremity AV fistula that has adequate bruit and thrill. NEUROLOGIC: The patient is alert, verbal, motor is 5/5. Cranial nerves 3-12 intact. Sensory intact. LABS: Did reveal white count 5.1, hemoglobin 8.2, hematocrit 27.6, platelet is 129, polys is 71.4%. Chemistry again sodium 144, potassium 3.6, chloride 103, CO2 30.5, BUN 48, creatinine 8.5, albumin 3.5. IMPRESSION: 1. Lumbosacral pain secondary to severe degenerative joint disease as well as scoliosis. 2. End-stage renal disease, on hemodialysis. 3. Gastroesophageal reflux disease. 4. Legally blind secondary to glaucoma. 5. Coronary artery disease. 6. Type 2 diabetes mellitus with chronic kidney disease. 7. Essential hypertension with chronic kidney disease. 8. Major depression. 9. Dyslipidemia. 10. Paroxysmal atrial fibrillation. 11. Gout. 12. Anemia, megaloblastic. PLAN: 1. Hemodialysis today. 2. Physical therapy. 3. Analgesics. 4. Folic acid. 5. Follow up electrolytes. JOB# [id number]
--- NOTE | 2018-09-28 06:54 | General Progress Note ---
Subjective - Review of Systems Service Date: 09/28/18 Subjective: Patient is awake, alert. still having low back pain but is not helping. h/o depression. multiple comorbidities. Objective - Results Result Diagrams: 09/27/18 05:40 09/27/18 05:40 Recent Labs: Laboratory Last Values WBC 5.1 Th/cmm (4.8-10.8) 09/27/18 05:40 RBC 2.72 Mil/cmm (4.30-5.70) L 09/27/18 05:40 Hgb 8.9 gm/dL (12-16) L 09/27/18 05:40 Hct 27.6 % (41.0-60) L 09/27/18 05:40 MCV 101.6 fl (80-99) H 09/27/18 05:40 MCH 32.6 pg (26.0-30.0) H 09/27/18 05:40 MCHC Differential 32.1 pg (28.0-36.0) 09/27/18 05:40 RDW 15.4 % (11.5-20.0) 09/27/18 05:40 Plt Count 129 Th/cmm (150-400) L 09/27/18 05:40 MPV 9.5 fl 09/27/18 05:40 Neutrophils % 71.4 % (40.0-80.0) 09/27/18 05:40 Lymphocytes % 17.7 % (20.0-50.0) L 09/27/18 05:40 Monocytes % 5.8 % (2.0-10.0) 09/27/18 05:40 Eosinophils % 4.2 % (0.0-5.0) 09/27/18 05:40 Basophils % 0.9 % (0.0-2.0) 09/27/18 05:40 Sodium 144 mEq/L (136-145) 09/27/18 05:40 Potassium 3.6 mEq/L (3.5-5.1) 09/27/18 05:40 Chloride 103 mEq/L (98-107) 09/27/18 05:40 Carbon Dioxide 30.5 mEq/L (21.0-31.0) 09/27/18 05:40 Anion Gap 14.1 (7.0-16.0) 09/27/18 05:40 BUN 48 mg/dL (7-25) H 09/27/18 05:40 Creatinine 8.5 mg/dL (0.7-1.3) H* 09/27/18 05:40 Est GFR ( Amer) 8.6 ml/min (>90) 09/27/18 05:40 Est GFR (Non-Af Amer) 7.1 ml/min 09/27/18 05:40 BUN/Creatinine Ratio 5.6 09/27/18 05:40 Glucose 80 mg/dL (70-105) 09/27/18 05:40 Calcium 9.4 mg/dL (8.6-10.3) 09/27/18 05:40 Magnesium 2.1 mg/dL (1.9-2.7) 09/26/18 15:19 Total Bilirubin 0.6 mg/dL (0.3-1.0) 09/27/18 05:40 AST 8 U/L (13-39) L 09/27/18 05:40 ALT < 3 U/L (7-52) L 09/27/18 05:40 Alkaline Phosphatase 57 U/L (34-104) 09/27/18 05:40 B-Natriuretic Peptide 898.0 pg/mL (5.0-100.0) H 09/27/18 05:40 Total Protein 6.3 gm/dL (6.0-8.3) 09/27/18 05:40 Albumin 3.5 gm/dL (4.2-5.5) L 09/27/18 05:40 Globulin 2.8 gm/dL 09/27/18 05:40 Albumin/Globulin Ratio 1.3 (1.0-1.8) 09/27/18 05:40 Urine Source CLEAN C 09/27/18 01:46 Urine Color YELLOW 09/27/18 01:46 Urine Clarity CLEAR (CLEAR) 09/27/18 01:46 Urine pH 8.0 (4.6 - 8.0) 09/27/18 01:46 Ur Specific [place] 1.015 (1.005-1.030) 09/27/18 01:46 Urine Protein 100 mg/dL (NEGATIVE) H 09/27/18 01:46 Urine Glucose (UA) NEGATIVE mg/dL (NEGATIVE) 09/27/18 01:46 Urine Ketones TRACE mg/dL (NEGATIVE) 09/27/18 01:46 Urine Blood NEGATIVE (NEGATIVE) 09/27/18 01:46 Urine Nitrate NEGATIVE (NEGATIVE) 09/27/18 01:46 Urine Bilirubin NEGATIVE (NEGATIVE) 09/27/18 01:46 Urine Urobilinogen 0.2 E.U./dL (0.2 - 1.0) 09/27/18 01:46 Ur Leukocyte Esterase NEGATIVE (NEGATIVE) 09/27/18 01:46 Urine RBC 0-2 /hpf (0-5) H 09/27/18 01:46 Urine WBC 0-2 /hpf (0-5) 09/27/18 01:46 Ur Epithelial Cells FEW /lpf (FEW) 09/27/18 01:46 Urine Bacteria FEW /hpf (NONE SEEN) 09/27/18 01:46 - Physical Exam Vitals and I&O: Vital Signs Temp 98.4 F 09/28/18 00:00 Pulse 100 09/28/18 00:00 Resp 18 09/28/18 00:00 BP 122/70 09/28/18 00:00 Pulse Ox 98 09/28/18 00:00 Intake & Output 09/27/18 09/27/18 09/28/18 06:59 18:59 06:59 Intake Total 900 150 Output Total 150 Balance 900 0 Weight (lbs) 75.977 kg 75.75 kg 77.201 kg Intake: Oral 900 150 Output: Stool 150 Other: # Voids 2 0 # Bowel Movements 0 1 Stool Characteristics Soft Brown Weight Source Bedscale Bedscale Bedscale Active Medications: Current Medications Acetaminophen (Tylenol) 650 mg PO Q4H PRN PRN Reason: Pain or Fever >101 Stop: 11/26/18 05:37 Acetaminophen/Hydrocodone Bitart ([place] 5mg/325mg) 1 tab PO Q6H PRN PRN Reason: Pain (Moderate) Stop: 11/25/18 20:41 Last Admin: 09/27/18 22:59 Dose: 1 tab Acetazolamide (Diamox) 250 mg PO BID [facility] Stop: 11/26/18 08:59 Last Admin: 09/27/18 16:08 Dose: Not Given Allopurinol (Zyloprim) 300 mg PO DAILY [facility] Stop: 11/26/18 08:59 Last Admin: 09/27/18 08:52 Dose: 300 mg Amiodarone HCl (Cordarone) 200 mg PO BID [facility] Stop: 11/26/18 08:59 Last Admin: 09/27/18 16:08 Dose: Not Given Artificial Tears (Artificial Tears Oph Soln) 1 drop EACH EYE BID PRN PRN Reason: Dry Eye Stop: 11/26/18 05:37 Last Admin: 09/27/18 21:31 Dose: 1 drop Atorvastatin Calcium (Lipitor) 40 mg PO HS [facility] Stop: 11/26/18 20:59 Last Admin: 09/27/18 21:31 Dose: 40 mg Atropine Sulfate (Isopto Atropine 1% [facility] Sol) 1 drop RIGHT EYE BID [facility] Stop: 11/26/18 08:59 Last Admin: 09/27/18 16:08 Dose: Not Given Benzonatate (Tessalon) 100 mg PO Q6H PRN PRN Reason: Cough Stop: 11/26/18 05:37 Last Admin: 09/27/18 14:42 Dose: 100 mg Brimonidine Tartrate (Alphagan 0.2% [facility] Sol) 1 drop RIGHT EYE TID [facility] Stop: 11/26/18 08:59 Last Admin: 09/27/18 21:31 Dose: 1 drop Carvedilol (Coreg) 3.125 mg PO BID [facility] Stop: 11/26/18 08:59 Last Admin: 09/27/18 16:08 Dose: Not Given Cholecalciferol (Vitamin D3) 1,000 iu PO DAILY [facility] Stop: 11/26/18 08:59 Last Admin: 09/27/18 08:52 Dose: 1,000 iu Clopidogrel Bisulfate (Plavix) 75 mg PO DAILY [facility] Stop: 11/26/18 08:59 Last Admin: 09/27/18 08:52 Dose: 75 mg Docusate Sodium (Colace) 100 mg PO TID [facility] Stop: 11/26/18 08:59 Last Admin: 09/27/18 21:31 Dose: 100 mg Dorzolamide/Timolol (Cosopt [facility] Soln) 1 drop RIGHT EYE BID [facility] Stop: 11/26/18 08:59 Last Admin: 09/27/18 16:08 Dose: Not Given Famotidine (Pepcid) 20 mg PO QDAC [facility] Stop: 11/26/18 07:29 Last Admin: 09/27/18 09:08 Dose: 20 mg Folic Acid (Folate) 1 mg PO DAILY [facility] Stop: 11/26/18 08:59 Last Admin: 09/27/18 08:53 Dose: 1 mg Gabapentin (Neurontin) 100 mg PO DAILY [facility] Stop: 11/26/18 08:59 Last Admin: 09/27/18 08:52 Dose: 100 mg Heparin Sodium (Porcine) (Heparin) 5,000 units SUBQ Q12H [facility] Stop: 11/26/18 20:59 Last Admin: 09/27/18 21:31 Dose: Not Given Latanoprost (Xalatan 0.005% Ophth Soln) 1 drop RIGHT EYE HS [facility] Stop: 11/26/18 20:59 Last Admin: 09/27/18 21:32 Dose: 1 drop Miscellaneous (Ferric Citrate [Auryxia]) 1 tab PO TID [facility] Stop: 11/26/18 08:59 Miscellaneous (Vte Chemical Prophylaxis Screen/ Admission) 1 ea [facility] PRN PRN PRN Reason: PROTOCOL Stop: 11/26/18 12:56 Nitroglycerin (Nitrostat) 0.4 mg SL UD [facility] Stop: 11/26/18 08:59 Last Admin: 09/27/18 08:53 Dose: 0.4 mg Sevelamer Carbonate (Renvela) 800 mg PO TIDWM [facility] Stop: 11/26/18 07:59 Last Admin: 09/27/18 16:09 Dose: Not Given Vitamin B Complex/Vit C/Folic Acid (Vitamin B Complex W/Vitamin C) 1 tab PO DAILY [facility] Stop: 11/26/18 08:59 Last Admin: 09/27/18 08:53 Dose: 1 tab General: Alert, Oriented x3 HEENT: Atraumatic, PERRLA, EOMI Neck: Supple Cardiovascular: Regular rate, Normal S1, Normal S2 Lungs: Clear to auscultation Abdomen: Bowel sounds Extremities: Edema, no Clubbing, no Cyanosis - Procedures Procedures: Procedures Procedure Code Date DRAINAGE OF BUTTOCK SUBCU/FASCIA, OPEN APPROACH [id number] 01/17/17 DRAINAGE OF SKIN ABSCESS 59702 01/17/17 PERFORMANCE OF URINARY FILTRATION, MULTIPLE [id number] 01/17/17 Assessment/Plan - Assessment Assessment: Intractable low back pain HTN DM CAD ESRD on HD GERD legally blind h/o NE S/P AICD Type 2 DM Glaucoma Gout Major Depressive d/o Hyperlipidemia A Fib - Plan Plan: repeat CBC, CMP continue home meds nephrology consult cardiology consult pain control CT lumbar spine without contrast
[2018-09-28] MEDS ORDERED: Morphine Sulfate 2 mg/mL 1mL Syr IVP PRN (06:55)
[2018-09-28] MEDS: Vitamin B Complex w/Vitamin C Tab PO SCH (09:19)
--- NOTE | 2018-09-28 10:04 | Diagnostic Imaging Report ---
CT lumbar spine without IV contrast HISTORY: Intractable back pain COMPARISON: X-rays of the lumbar spine on 09/26/2018 Technique: Axial images were obtained from the lower thoracic spine to the upper sacrum without IV contrast. Reconstructions were made. total DLP: [id number], [id number] Findings: Spinal scoliosis is noted. No evidence of an acute fracture or subluxation. Extensive multilevel degenerative changes are noted with multilevel moderate to advanced disc space loss of height and multilevel vacuum disc phenomena. Multilevel mild to moderate facet degenerative changes are noted. Level by level: L1/L2: 2 mm broad-based disc bulge. Mild spinal canal and mild bilateral neural foraminal narrowing. L2/L3: 3 mm broad-based disc bulge and mild facet degenerative changes. Moderate spinal canal and mild bilateral neural foraminal narrowing is noted. L3/L4: 2-3 noted broad-based disc bulge asymmetric to the left. Mild spinal canal and mild bilateral neural foraminal narrowing is noted. L4/L5: 3 mm focal disc bulge asymmetric to the left. There is moderate spinal canal narrowing. There is moderate bilateral neural foraminal narrowing. L5/S1: 2 mm focal disc bulge. Mild spinal canal narrowing. Mild bilateral neural foraminal narrowing. There is diffuse atherosclerotic vascular disease. Distal fecal impaction is also noted. Degenerative changes of the SI joints is noted. Incidentally noted is a 1 cm lesion with peripheral sclerotic borders along the right iliac bone. Patchy osteopenia is noted. IMPRESSION: No evidence of acute fracture or subluxation. Severe multilevel degenerative changes of the spine as detailed above Spinal scoliosis. Osteopenia is suspected. 1 cm lesion with a sclerotic borders of the right iliac bone nonspecific and may be a benign etiology. Correlation with clinical history and old exams is recommended. Consider follow-up surveillance exam exams. Heavy atherosclerotic vascular disease. Distal fecal impaction.
--- NOTE | 2018-09-28 15:18 | General Progress Note ---
Subjective - Review of Systems Service Date: 09/28/18 Subjective: still has lower back pain Objective - Results Result Diagrams: 09/27/18 05:40 09/27/18 05:40 Recent Labs: Laboratory Last Values WBC 5.1 Th/cmm (4.8-10.8) 09/27/18 05:40 RBC 2.72 Mil/cmm (4.30-5.70) L 09/27/18 05:40 Hgb 8.9 gm/dL (12-16) L 09/27/18 05:40 Hct 27.6 % (41.0-60) L 09/27/18 05:40 MCV 101.6 fl (80-99) H 09/27/18 05:40 MCH 32.6 pg (26.0-30.0) H 09/27/18 05:40 MCHC Differential 32.1 pg (28.0-36.0) 09/27/18 05:40 RDW 15.4 % (11.5-20.0) 09/27/18 05:40 Plt Count 129 Th/cmm (150-400) L 09/27/18 05:40 MPV 9.5 fl 09/27/18 05:40 Neutrophils % 71.4 % (40.0-80.0) 09/27/18 05:40 Lymphocytes % 17.7 % (20.0-50.0) L 09/27/18 05:40 Monocytes % 5.8 % (2.0-10.0) 09/27/18 05:40 Eosinophils % 4.2 % (0.0-5.0) 09/27/18 05:40 Basophils % 0.9 % (0.0-2.0) 09/27/18 05:40 Sodium 144 mEq/L (136-145) 09/27/18 05:40 Potassium 3.6 mEq/L (3.5-5.1) 09/27/18 05:40 Chloride 103 mEq/L (98-107) 09/27/18 05:40 Carbon Dioxide 30.5 mEq/L (21.0-31.0) 09/27/18 05:40 Anion Gap 14.1 (7.0-16.0) 09/27/18 05:40 BUN 48 mg/dL (7-25) H 09/27/18 05:40 Creatinine 8.5 mg/dL (0.7-1.3) H* 09/27/18 05:40 Est GFR ( Amer) 8.6 ml/min (>90) 09/27/18 05:40 Est GFR (Non-Af Amer) 7.1 ml/min 09/27/18 05:40 BUN/Creatinine Ratio 5.6 09/27/18 05:40 Glucose 80 mg/dL (70-105) 09/27/18 05:40 Calcium 9.4 mg/dL (8.6-10.3) 09/27/18 05:40 Magnesium 2.1 mg/dL (1.9-2.7) 09/26/18 15:19 Total Bilirubin 0.6 mg/dL (0.3-1.0) 09/27/18 05:40 AST 8 U/L (13-39) L 09/27/18 05:40 ALT < 3 U/L (7-52) L 09/27/18 05:40 Alkaline Phosphatase 57 U/L (34-104) 09/27/18 05:40 B-Natriuretic Peptide 898.0 pg/mL (5.0-100.0) H 09/27/18 05:40 Total Protein 6.3 gm/dL (6.0-8.3) 09/27/18 05:40 Albumin 3.5 gm/dL (4.2-5.5) L 09/27/18 05:40 Globulin 2.8 gm/dL 09/27/18 05:40 Albumin/Globulin Ratio 1.3 (1.0-1.8) 09/27/18 05:40 Urine Source CLEAN C 09/27/18 01:46 Urine Color YELLOW 09/27/18 01:46 Urine Clarity CLEAR (CLEAR) 09/27/18 01:46 Urine pH 8.0 (4.6 - 8.0) 09/27/18 01:46 Ur Specific [place] 1.015 (1.005-1.030) 09/27/18 01:46 Urine Protein 100 mg/dL (NEGATIVE) H 09/27/18 01:46 Urine Glucose (UA) NEGATIVE mg/dL (NEGATIVE) 09/27/18 01:46 Urine Ketones TRACE mg/dL (NEGATIVE) 09/27/18 01:46 Urine Blood NEGATIVE (NEGATIVE) 09/27/18 01:46 Urine Nitrate NEGATIVE (NEGATIVE) 09/27/18 01:46 Urine Bilirubin NEGATIVE (NEGATIVE) 09/27/18 01:46 Urine Urobilinogen 0.2 E.U./dL (0.2 - 1.0) 09/27/18 01:46 Ur Leukocyte Esterase NEGATIVE (NEGATIVE) 09/27/18 01:46 Urine RBC 0-2 /hpf (0-5) H 09/27/18 01:46 Urine WBC 0-2 /hpf (0-5) 09/27/18 01:46 Ur Epithelial Cells FEW /lpf (FEW) 09/27/18 01:46 Urine Bacteria FEW /hpf (NONE SEEN) 09/27/18 01:46 - Physical Exam Vitals and I&O: Vital Signs Temp 97.5 F 09/28/18 12:00 Pulse 98 09/28/18 12:00 Resp 18 09/28/18 12:00 BP 120/77 09/28/18 12:00 Pulse Ox 93 09/28/18 12:00 Intake & Output 09/27/18 09/28/18 09/28/18 18:59 06:59 18:59 Intake Total 900 150 Output Total 150 Balance 900 0 Weight (lbs) 75.75 kg 77.201 kg Intake: Oral 900 150 Output: Stool 150 Other: # Voids 0 # Bowel Movements 0 1 Stool Characteristics Soft Brown Weight Source Bedscale Bedscale Active Medications: Current Medications Acetaminophen (Tylenol) 650 mg PO Q4H PRN PRN Reason: Pain or Fever >101 Stop: 11/26/18 05:37 Acetaminophen/Hydrocodone Bitart ([place] 5mg/325mg) 1 tab PO Q6H PRN PRN Reason: Pain (Moderate) Stop: 11/25/18 20:41 Last Admin: 09/27/18 22:59 Dose: 1 tab Acetazolamide (Diamox) 250 mg PO BID [facility] Stop: 11/26/18 08:59 Last Admin: 09/28/18 09:34 Dose: 250 mg Allopurinol (Zyloprim) 300 mg PO DAILY [facility] Stop: 11/26/18 08:59 Last Admin: 09/28/18 09:26 Dose: 300 mg Amiodarone HCl (Cordarone) 200 mg PO BID [facility] Stop: 11/26/18 08:59 Last Admin: 09/28/18 09:28 Dose: 200 mg Artificial Tears (Artificial Tears Oph Soln) 1 drop EACH EYE BID PRN PRN Reason: Dry Eye Stop: 11/26/18 05:37 Last Admin: 09/27/18 21:31 Dose: 1 drop Atorvastatin Calcium (Lipitor) 40 mg PO HS [facility] Stop: 11/26/18 20:59 Last Admin: 09/27/18 21:31 Dose: 40 mg Atropine Sulfate (Isopto Atropine 1% Oph Soln) 1 drop RIGHT EYE BID [facility] Stop: 11/26/18 08:59 Last Admin: 09/28/18 09:31 Dose: Not Given Benzonatate (Tessalon) 100 mg PO Q6H PRN PRN Reason: Cough Stop: 11/26/18 05:37 Last Admin: 09/27/18 14:42 Dose: 100 mg Brimonidine Tartrate (Alphagan 0.2% [facility] Sol) 1 drop RIGHT EYE TID [facility] Stop: 11/26/18 08:59 Last Admin: 09/28/18 09:31 Dose: Not Given Carvedilol (Coreg) 3.125 mg PO BID [facility] Stop: 11/26/18 08:59 Last Admin: 09/28/18 09:25 Dose: 3.125 mg Cholecalciferol (Vitamin D3) 1,000 iu PO DAILY [facility] Stop: 11/26/18 08:59 Last Admin: 09/28/18 09:29 Dose: 1,000 iu Clopidogrel Bisulfate (Plavix) 75 mg PO DAILY [facility] Stop: 11/26/18 08:59 Last Admin: 09/28/18 09:19 Dose: 75 mg Docusate Sodium (Colace) 100 mg PO TID [facility] Stop: 11/26/18 08:59 Last Admin: 09/28/18 09:19 Dose: 100 mg Dorzolamide/Timolol (Cosopt [facility] Soln) 1 drop RIGHT EYE BID [facility] Stop: 11/26/18 08:59 Last Admin: 09/28/18 09:31 Dose: Not Given Famotidine (Pepcid) 20 mg PO QDAC [facility] Stop: 11/26/18 07:29 Last Admin: 09/28/18 09:19 Dose: 20 mg Folic Acid (Folate) 1 mg PO DAILY [facility] Stop: 11/26/18 08:59 Last Admin: 09/28/18 09:19 Dose: 1 mg Gabapentin (Neurontin) 100 mg PO DAILY [facility] Stop: 11/26/18 08:59 Last Admin: 09/28/18 09:18 Dose: 100 mg Heparin Sodium (Porcine) (Heparin) 5,000 units SUBQ Q12H [facility] Stop: 11/26/18 20:59 Last Admin: 09/28/18 09:20 Dose: Not Given Latanoprost (Xalatan 0.005% Ophth Soln) 1 drop RIGHT EYE HS [facility] Stop: 11/26/18 20:59 Last Admin: 09/27/18 21:32 Dose: 1 drop Miscellaneous (Ferric Citrate [Auryxia]) 1 tab PO TID [facility] Stop: 11/26/18 08:59 Miscellaneous (Vte Chemical Prophylaxis Screen/ Admission) 1 ea [facility] PRN PRN PRN Reason: PROTOCOL Stop: 11/26/18 12:56 Morphine Sulfate (Morphine) 1 mg IVP Q4HR PRN PRN Reason: Pain (Moderate) Stop: 11/27/18 06:54 Nitroglycerin (Nitrostat) 0.4 mg SL UD [facility] Stop: 11/26/18 08:59 Last Admin: 09/28/18 10:27 Dose: Not Given Sevelamer Carbonate (Renvela) 800 mg PO TIDWM [facility] Stop: 11/26/18 07:59 Last Admin: 09/28/18 12:03 Dose: Not Given Vitamin B Complex/Vit C/Folic Acid (Vitamin B Complex W/Vitamin C) 1 tab PO DAILY [facility] Stop: 11/26/18 08:59 Last Admin: 09/28/18 09:19 Dose: 1 tab General: Alert, Oriented x3, Mild distress HEENT: Atraumatic, PERRLA, EOMI Neck: Supple, +2 carotid pulse wo bruit Cardiovascular: Regular rate, Normal S1, Normal S2 Lungs: Clear to auscultation Abdomen: Bowel sounds, Soft Extremities: Edema, no Clubbing, no Cyanosis Neurological: Sensation intact Skin: no Rash Psych/Mental Status: Mood NL - Procedures Procedures: Procedures Procedure Code Date DRAINAGE OF BUTTOCK SUBCU/FASCIA, OPEN APPROACH [id number] 01/17/17 DRAINAGE OF SKIN ABSCESS 18265 01/17/17 PERFORMANCE OF URINARY FILTRATION, MULTIPLE [id number] 01/17/17 Assessment/Plan - Assessment Assessment: ESRD on HD Low Back Pain-LS Spine multilevel bulge Ds. 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 Glaucoma CAD Ess Htn T2 DM - Plan Plan: Lab - Result Diagrams 09/27/18 05:40 09/27/18 05:40 Current Medications Acetaminophen (Tylenol) 650 mg PO Q4H PRN PRN Reason: Pain or Fever >101 Stop: 11/26/18 05:37 Acetaminophen/Hydrocodone Bitart ([place] 5mg/325mg) 1 tab PO Q6H PRN PRN Reason: Pain (Moderate) Stop: 11/25/18 20:41 Last Admin: 09/27/18 22:59 Dose: 1 tab Acetazolamide (Diamox) 250 mg PO BID [facility] Stop: 11/26/18 08:59 Last Admin: 09/28/18 09:34 Dose: 250 mg Allopurinol (Zyloprim) 300 mg PO DAILY [facility] Stop: 11/26/18 08:59 Last Admin: 09/28/18 09:26 Dose: 300 mg Amiodarone HCl (Cordarone) 200 mg PO BID [facility] Stop: 11/26/18 08:59 Last Admin: 09/28/18 09:28 Dose: 200 mg Artificial Tears (Artificial Tears Ophth Soln) 1 drop EACH EYE BID PRN PRN Reason: Dry Eye Stop: 11/26/18 05:37 Last Admin: 09/27/18 21:31 Dose: 1 drop Atorvastatin Calcium (Lipitor) 40 mg PO HS [facility] Stop: 11/26/18 20:59 Last Admin: 09/27/18 21:31 Dose: 40 mg Atropine Sulfate (Isopto Atropine 1% Ophth Soln) 1 drop RIGHT EYE BID [facility] Stop: 11/26/18 08:59 Last Admin: 09/28/18 09:31 Dose: Not Given Benzonatate (Tessalon) 100 mg PO Q6H PRN PRN Reason: Cough Stop: 11/26/18 05:37 Last Admin: 09/27/18 14:42 Dose: 100 mg Brimonidine Tartrate (Alphagan 0.2% Ophth Soln) 1 drop RIGHT EYE TID [facility] Stop: 11/26/18 08:59 Last Admin: 09/28/18 09:31 Dose: Not Given Carvedilol (Coreg) 3.125 mg PO BID [facility] Stop: 11/26/18 08:59 Last Admin: 09/28/18 09:25 Dose: 3.125 mg Cholecalciferol (Vitamin D3) 1,000 iu PO DAILY [facility] Stop: 11/26/18 08:59 Last Admin: 09/28/18 09:29 Dose: 1,000 iu Clopidogrel Bisulfate (Plavix) 75 mg PO DAILY [facility] Stop: 11/26/18 08:59 Last Admin: 09/28/18 09:19 Dose: 75 mg Docusate Sodium (Colace) 100 mg PO TID [facility] Stop: 11/26/18 08:59 Last Admin: 09/28/18 09:19 Dose: 100 mg Dorzolamide/Timolol (Cosopt [facility] Sol) 1 drop RIGHT EYE BID [facility] Stop: 11/26/18 08:59 Last Admin: 09/28/18 09:31 Dose: Not Given Famotidine (Pepcid) 20 mg PO QDAC [facility] Stop: 11/26/18 07:29 Last Admin: 09/28/18 09:19 Dose: 20 mg Folic Acid (Folate) 1 mg PO DAILY [facility] Stop: 11/26/18 08:59 Last Admin: 09/28/18 09:19 Dose: 1 mg Gabapentin (Neurontin) 100 mg PO DAILY [facility] Stop: 11/26/18 08:59 Last Admin: 09/28/18 09:18 Dose: 100 mg Heparin Sodium (Porcine) (Heparin) 5,000 units SUBQ Q12H [facility] Stop: 11/26/18 20:59 Last Admin: 09/28/18 09:20 Dose: Not Given Latanoprost (Xalatan 0.005% [facility] Sol) 1 drop RIGHT EYE HS [facility] Stop: 11/26/18 20:59 Last Admin: 09/27/18 21:32 Dose: 1 drop Miscellaneous (Ferric Citrate [Auryxia]) 1 tab PO TID [facility] Stop: 11/26/18 08:59 Miscellaneous (Vte Chemical Prophylaxis Screen/ Admission) 1 ea [facility] PRN PRN PRN Reason: PROTOCOL Stop: 11/26/18 12:56 Morphine Sulfate (Morphine) 1 mg IVP Q4HR PRN PRN Reason: Pain (Moderate) Stop: 11/27/18 06:54 Nitroglycerin (Nitrostat) 0.4 mg SL UD [facility] Stop: 11/26/18 08:59 Last Admin: 09/28/18 10:27 Dose: Not Given Sevelamer Carbonate (Renvela) 800 mg PO TIDWM [facility] Stop: 11/26/18 07:59 Last Admin: 09/28/18 12:03 Dose: Not Given Vitamin B Complex/Vit C/Folic Acid (Vitamin B Complex W/Vitamin C) 1 tab PO DAILY [facility] Stop: 11/26/18 08:59 Last Admin: 09/28/18 09:19 Dose: 1 tab Lab - Result Diagrams 09/27/18 05:40 09/27/18 05:40 pt. was dialyzed yesterday & tolerated it well continue analgesics will eventually require spinal surgeon to eval
--- NOTE | 2018-09-28 17:05 | Cardiology ---
09/28/[address] Mckenna. M-MODE ECHOCARDIOGRAM: Mitral valve, anterior leaflet of mitral valve shows decreased excursion, EF velocity. Posterior leaflet of mitral valve shows decreased excursion. Left ventricular posterior wall shows increased thickness, decreased excursion. Interventricular septum shows increased thickness, decreased excursion, ejection fraction 26%. Left atrium enlarged 5.4 cm. Aortic root shows normal dimension, normal excursion of aortic leaflets. CONCLUSION: Cardiomyopathy, hypertrophy of the left ventricle, left atrial enlargement, ejection fraction 26%. 2D ECHO: Long axis view shows enlarged left ventricular cavity with decreased ejection fraction. Mitral valve shows decreased excursion. Left atrium enlarged. Aortic root shows normal dimension, normal excursion of aortic leaflets. Short axis view of mitral valve normal. Short axis view of aortic valve normal. Apical four chamber view shows enlarged left ventricular cavity with decreased ejection fraction. Left atrium enlarged. Right ventricular cavity normal. Right atrial enlargement. CONCLUSION: Left atrial enlargement, right atrial enlargement, hypertrophy of the left ventricle, cardiomyopathy, ejection fraction 26%. Doppler study shows moderate mitral regurgitation, moderate tricuspid regurgitation, moderate pulmonary regurgitation, trace aortic regurgitation. Right ventricular systolic pressure of 60 mmHg with moderate to severe pulmonary hypertension. JOB# [id number]
--- NOTE | 2018-09-29 07:42 | General Progress Note ---
Subjective - Review of Systems Service Date: 09/29/18 Subjective: Patient is awake, alert. still having low back pain but is not helping. h/o depression. multiple comorbidities. noncomplaint with meds. Objective - Results Result Diagrams: 09/27/18 05:40 09/27/18 05:40 Recent Labs: Laboratory Last Values WBC 5.1 Th/cmm (4.8-10.8) 09/27/18 05:40 RBC 2.72 Mil/cmm (4.30-5.70) L 09/27/18 05:40 Hgb 8.9 gm/dL (12-16) L 09/27/18 05:40 Hct 27.6 % (41.0-60) L 09/27/18 05:40 MCV 101.6 fl (80-99) H 09/27/18 05:40 MCH 32.6 pg (26.0-30.0) H 09/27/18 05:40 MCHC Differential 32.1 pg (28.0-36.0) 09/27/18 05:40 RDW 15.4 % (11.5-20.0) 09/27/18 05:40 Plt Count 129 Th/cmm (150-400) L 09/27/18 05:40 MPV 9.5 fl 09/27/18 05:40 Neutrophils % 71.4 % (40.0-80.0) 09/27/18 05:40 Lymphocytes % 17.7 % (20.0-50.0) L 09/27/18 05:40 Monocytes % 5.8 % (2.0-10.0) 09/27/18 05:40 Eosinophils % 4.2 % (0.0-5.0) 09/27/18 05:40 Basophils % 0.9 % (0.0-2.0) 09/27/18 05:40 Sodium 144 mEq/L (136-145) 09/27/18 05:40 Potassium 3.6 mEq/L (3.5-5.1) 09/27/18 05:40 Chloride 103 mEq/L (98-107) 09/27/18 05:40 Carbon Dioxide 30.5 mEq/L (21.0-31.0) 09/27/18 05:40 Anion Gap 14.1 (7.0-16.0) 09/27/18 05:40 BUN 48 mg/dL (7-25) H 09/27/18 05:40 Creatinine 8.5 mg/dL (0.7-1.3) H* 09/27/18 05:40 Est GFR ( Amer) 8.6 ml/min (>90) 09/27/18 05:40 Est GFR (Non-Af Amer) 7.1 ml/min 09/27/18 05:40 BUN/Creatinine Ratio 5.6 09/27/18 05:40 Glucose 80 mg/dL (70-105) 09/27/18 05:40 Calcium 9.4 mg/dL (8.6-10.3) 09/27/18 05:40 Magnesium 2.1 mg/dL (1.9-2.7) 09/26/18 15:19 Total Bilirubin 0.6 mg/dL (0.3-1.0) 09/27/18 05:40 AST 8 U/L (13-39) L 09/27/18 05:40 ALT < 3 U/L (7-52) L 09/27/18 05:40 Alkaline Phosphatase 57 U/L (34-104) 09/27/18 05:40 B-Natriuretic Peptide 898.0 pg/mL (5.0-100.0) H 09/27/18 05:40 Total Protein 6.3 gm/dL (6.0-8.3) 09/27/18 05:40 Albumin 3.5 gm/dL (4.2-5.5) L 09/27/18 05:40 Globulin 2.8 gm/dL 09/27/18 05:40 Albumin/Globulin Ratio 1.3 (1.0-1.8) 09/27/18 05:40 Urine Source CLEAN C 09/27/18 01:46 Urine Color YELLOW 09/27/18 01:46 Urine Clarity CLEAR (CLEAR) 09/27/18 01:46 Urine pH 8.0 (4.6 - 8.0) 09/27/18 01:46 Ur Specific [place] 1.015 (1.005-1.030) 09/27/18 01:46 Urine Protein 100 mg/dL (NEGATIVE) H 09/27/18 01:46 Urine Glucose (UA) NEGATIVE mg/dL (NEGATIVE) 09/27/18 01:46 Urine Ketones TRACE mg/dL (NEGATIVE) 09/27/18 01:46 Urine Blood NEGATIVE (NEGATIVE) 09/27/18 01:46 Urine Nitrate NEGATIVE (NEGATIVE) 09/27/18 01:46 Urine Bilirubin NEGATIVE (NEGATIVE) 09/27/18 01:46 Urine Urobilinogen 0.2 E.U./dL (0.2 - 1.0) 09/27/18 01:46 Ur Leukocyte Esterase NEGATIVE (NEGATIVE) 09/27/18 01:46 Urine RBC 0-2 /hpf (0-5) H 09/27/18 01:46 Urine WBC 0-2 /hpf (0-5) 09/27/18 01:46 Ur Epithelial Cells FEW /lpf (FEW) 09/27/18 01:46 Urine Bacteria FEW /hpf (NONE SEEN) 09/27/18 01:46 - Physical Exam Vitals and I&O: Vital Signs Temp 98.6 F 09/29/18 04:08 Pulse 104 09/29/18 04:08 Resp 18 09/29/18 04:08 BP 130/79 09/29/18 04:08 Pulse Ox 99 09/29/18 04:08 Intake & Output 09/28/18 09/29/18 09/29/18 18:59 06:59 18:59 Intake Total 120 Output Total 300 Balance -180 Weight (lbs) 77.111 kg Intake: Oral 120 Output: Urine 300 Other: # Voids 1 Weight Source Bedscale Active Medications: Current Medications Acetaminophen (Tylenol) 650 mg PO Q4H PRN PRN Reason: Pain or Fever >101 Stop: 11/26/18 05:37 Acetaminophen/Hydrocodone Bitart ([place] 5mg/325mg) 1 tab PO Q6H PRN PRN Reason: Pain (Moderate) Stop: 11/25/18 20:41 Last Admin: 09/27/18 22:59 Dose: 1 tab Acetazolamide (Diamox) 250 mg PO BID [facility] Stop: 11/26/18 08:59 Last Admin: 09/28/18 18:08 Dose: Not Given Allopurinol (Zyloprim) 300 mg PO DAILY [facility] Stop: 11/26/18 08:59 Last Admin: 09/28/18 09:26 Dose: 300 mg Amiodarone HCl (Cordarone) 200 mg PO BID [facility] Stop: 11/26/18 08:59 Last Admin: 09/28/18 18:08 Dose: Not Given Artificial Tears (Artificial Tears Oph Soln) 1 drop EACH EYE BID PRN PRN Reason: Dry Eye Stop: 11/26/18 05:37 Last Admin: 09/27/18 21:31 Dose: 1 drop Atorvastatin Calcium (Lipitor) 40 mg PO HS SARAH Stop: 11/26/18 20:59 Last Admin: 09/28/18 21:17 Dose: 40 mg Atropine Sulfate (Isopto Atropine 1% Oph Soln) 1 drop RIGHT EYE BID SARAH Stop: 11/26/18 08:59 Last Admin: 09/28/18 18:09 Dose: Not Given Benzonatate (Tessalon) 100 mg PO Q6H PRN PRN Reason: Cough Stop: 11/26/18 05:37 Last Admin: 09/27/18 14:42 Dose: 100 mg Brimonidine Tartrate (Alphagan 0.2% [facility] Sol) 1 drop RIGHT EYE TID SARAH Stop: 11/26/18 08:59 Last Admin: 09/28/18 21:21 Dose: Not Given Carvedilol (Coreg) 3.125 mg PO BID SAR[facility] Stop: 11/26/18 08:59 Last Admin: 09/28/18 18:09 Dose: Not Given Cholecalciferol (Vitamin D3) 1,000 iu PO DAILY SARAH Stop: 11/26/18 08:59 Last Admin: 09/28/18 09:29 Dose: 1,000 iu Clopidogrel Bisulfate (Plavix) 75 mg PO DAILY SAR[facility] Stop: 11/26/18 08:59 Last Admin: 09/28/18 09:19 Dose: 75 mg Docusate Sodium (Colace) 100 mg PO TID SARAH Stop: 11/26/18 08:59 Last Admin: 09/28/18 21:17 Dose: 100 mg Dorzolamide/Timolol (Cosopt [facility] Soln) 1 drop RIGHT EYE BID SARAH Stop: 11/26/18 08:59 Last Admin: 09/28/18 18:09 Dose: Not Given Famotidine (Pepcid) 20 mg PO QDAC SARAH Stop: 11/26/18 07:29 Last Admin: 09/28/18 09:19 Dose: 20 mg Folic Acid (Folate) 1 mg PO DAILY SARAH Stop: 11/26/18 08:59 Last Admin: 09/28/18 09:19 Dose: 1 mg Gabapentin (Neurontin) 100 mg PO DAILY [facility] Stop: 11/26/18 08:59 Last Admin: 09/28/18 09:18 Dose: 100 mg Heparin Sodium (Porcine) (Heparin) 5,000 units SUBQ Q12H SARAH Stop: 11/26/18 20:59 Last Admin: 09/28/18 21:21 Dose: Not Given Latanoprost (Xalatan 0.005% Ophth Soln) 1 drop RIGHT EYE HS [facility] Stop: 11/26/18 20:59 Last Admin: 09/28/18 21:21 Dose: Not Given Miscellaneous (Ferric Citrate [Auryxia]) 1 tab PO TID [facility] Stop: 11/26/18 08:59 Miscellaneous (Vte Chemical Prophylaxis Screen/ Admission) 1 ea [facility] PRN PRN PRN Reason: PROTOCOL Stop: 11/26/18 12:56 Morphine Sulfate (Morphine) 1 mg IVP Q4HR PRN PRN Reason: Pain (Moderate) Stop: 11/27/18 06:54 Nitroglycerin (Nitrostat) 0.4 mg SL UD [facility] Stop: 11/26/18 08:59 Last Admin: 09/28/18 10:27 Dose: Not Given Sevelamer Carbonate (Renvela) 800 mg PO TIDWM [facility] Stop: 11/26/18 07:59 Last Admin: 09/28/18 18:09 Dose: Not Given Vitamin B Complex/Vit C/Folic Acid (Vitamin B Complex W/Vitamin C) 1 tab PO DAILY [facility] Stop: 11/26/18 08:59 Last Admin: 09/28/18 09:19 Dose: 1 tab General: Alert, Oriented x3, Mild distress HEENT: Atraumatic, PERRLA, EOMI Neck: Supple, +2 carotid pulse wo bruit Cardiovascular: Regular rate, Normal S1, Normal S2 Lungs: Clear to auscultation Abdomen: Bowel sounds, Soft Extremities: Edema, no Clubbing, no Cyanosis Neurological: Sensation intact Skin: no Rash Psych/Mental Status: Mood NL - Procedures Procedures: Procedures Procedure Code Date DRAINAGE OF BUTTOCK SUBCU/FASCIA, OPEN APPROACH [id number] 01/17/17 DRAINAGE OF SKIN ABSCESS 72237 01/17/17 PERFORMANCE OF URINARY FILTRATION, MULTIPLE [id number] 01/17/17 Assessment/Plan - Assessment Assessment: Intractable low back pain severe degenerative disc disease HTN DM CAD ESRD on HD GERD legally blind h/o RI S/P AICD Type 2 DM Glaucoma Gout Major Depressive d/o Hyperlipidemia A Fib - Plan Plan: repeat CBC, CMP continue home meds nephrology consult cardiology consult pain control CT lumbar spine without contrast
[2018-09-29] MEDS: Vitamin B Complex w/Vitamin C Tab PO SCH (08:52)
--- NOTE | 2018-09-29 13:28 | General Progress Note ---
Subjective - Review of Systems Service Date: 09/29/18 Subjective: still has intermittent lower back pain Objective - Results Result Diagrams: 09/27/18 05:40 09/27/18 05:40 Recent Labs: Laboratory Last Values WBC 5.1 Th/cmm (4.8-10.8) 09/27/18 05:40 RBC 2.72 Mil/cmm (4.30-5.70) L 09/27/18 05:40 Hgb 8.9 gm/dL (12-16) L 09/27/18 05:40 Hct 27.6 % (41.0-60) L 09/27/18 05:40 MCV 101.6 fl (80-99) H 09/27/18 05:40 MCH 32.6 pg (26.0-30.0) H 09/27/18 05:40 MCHC Differential 32.1 pg (28.0-36.0) 09/27/18 05:40 RDW 15.4 % (11.5-20.0) 09/27/18 05:40 Plt Count 129 Th/cmm (150-400) L 09/27/18 05:40 MPV 9.5 fl 09/27/18 05:40 Neutrophils % 71.4 % (40.0-80.0) 09/27/18 05:40 Lymphocytes % 17.7 % (20.0-50.0) L 09/27/18 05:40 Monocytes % 5.8 % (2.0-10.0) 09/27/18 05:40 Eosinophils % 4.2 % (0.0-5.0) 09/27/18 05:40 Basophils % 0.9 % (0.0-2.0) 09/27/18 05:40 Sodium 144 mEq/L (136-145) 09/27/18 05:40 Potassium 3.6 mEq/L (3.5-5.1) 09/27/18 05:40 Chloride 103 mEq/L (98-107) 09/27/18 05:40 Carbon Dioxide 30.5 mEq/L (21.0-31.0) 09/27/18 05:40 Anion Gap 14.1 (7.0-16.0) 09/27/18 05:40 BUN 48 mg/dL (7-25) H 09/27/18 05:40 Creatinine 8.5 mg/dL (0.7-1.3) H* 09/27/18 05:40 Est GFR ( Amer) 8.6 ml/min (>90) 09/27/18 05:40 Est GFR (Non-Af Amer) 7.1 ml/min 09/27/18 05:40 BUN/Creatinine Ratio 5.6 09/27/18 05:40 Glucose 80 mg/dL (70-105) 09/27/18 05:40 Calcium 9.4 mg/dL (8.6-10.3) 09/27/18 05:40 Magnesium 2.1 mg/dL (1.9-2.7) 09/26/18 15:19 Total Bilirubin 0.6 mg/dL (0.3-1.0) 09/27/18 05:40 AST 8 U/L (13-39) L 09/27/18 05:40 ALT < 3 U/L (7-52) L 09/27/18 05:40 Alkaline Phosphatase 57 U/L (34-104) 09/27/18 05:40 B-Natriuretic Peptide 898.0 pg/mL (5.0-100.0) H 09/27/18 05:40 Total Protein 6.3 gm/dL (6.0-8.3) 09/27/18 05:40 Albumin 3.5 gm/dL (4.2-5.5) L 09/27/18 05:40 Globulin 2.8 gm/dL 09/27/18 05:40 Albumin/Globulin Ratio 1.3 (1.0-1.8) 09/27/18 05:40 Urine Source CLEAN C 09/27/18 01:46 Urine Color YELLOW 09/27/18 01:46 Urine Clarity CLEAR (CLEAR) 09/27/18 01:46 Urine pH 8.0 (4.6 - 8.0) 09/27/18 01:46 Ur Specific [place] 1.015 (1.005-1.030) 09/27/18 01:46 Urine Protein 100 mg/dL (NEGATIVE) H 09/27/18 01:46 Urine Glucose (UA) NEGATIVE mg/dL (NEGATIVE) 09/27/18 01:46 Urine Ketones TRACE mg/dL (NEGATIVE) 09/27/18 01:46 Urine Blood NEGATIVE (NEGATIVE) 09/27/18 01:46 Urine Nitrate NEGATIVE (NEGATIVE) 09/27/18 01:46 Urine Bilirubin NEGATIVE (NEGATIVE) 09/27/18 01:46 Urine Urobilinogen 0.2 E.U./dL (0.2 - 1.0) 09/27/18 01:46 Ur Leukocyte Esterase NEGATIVE (NEGATIVE) 09/27/18 01:46 Urine RBC 0-2 /hpf (0-5) H 09/27/18 01:46 Urine WBC 0-2 /hpf (0-5) 09/27/18 01:46 Ur Epithelial Cells FEW /lpf (FEW) 09/27/18 01:46 Urine Bacteria FEW /hpf (NONE SEEN) 09/27/18 01:46 - Physical Exam Vitals and I&O: Vital Signs Temp 97.6 F 09/29/18 12:00 Pulse 103 09/29/18 12:00 Resp 18 09/29/18 12:00 BP 98/57 09/29/18 12:00 Pulse Ox 98 09/29/18 12:00 Intake & Output 09/28/18 09/29/18 09/29/18 18:59 06:59 18:59 Intake Total 120 Output Total 300 Balance -180 Weight (lbs) 77.111 kg Intake: Oral 120 Output: Urine 300 Other: # Voids 1 Weight Source Bedscale Active Medications: Current Medications Acetaminophen (Tylenol) 650 mg PO Q4H PRN PRN Reason: Pain or Fever >101 Stop: 11/26/18 05:37 Acetaminophen/Hydrocodone Bitart ([place] 5mg/325mg) 1 tab PO Q6H PRN PRN Reason: Pain (Moderate) Stop: 11/25/18 20:41 Last Admin: 09/27/18 22:59 Dose: 1 tab Acetazolamide (Diamox) 250 mg PO BID [facility] Stop: 11/26/18 08:59 Last Admin: 09/28/18 18:08 Dose: Not Given Allopurinol (Zyloprim) 300 mg PO DAILY [facility] Stop: 11/26/18 08:59 Last Admin: 09/29/18 08:53 Dose: 300 mg Amiodarone HCl (Cordarone) 200 mg PO BID [facility] Stop: 11/26/18 08:59 Last Admin: 09/29/18 08:52 Dose: 200 mg Artificial Tears (Artificial Tears Oph Soln) 1 drop EACH EYE BID PRN PRN Reason: Dry Eye Stop: 11/26/18 05:37 Last Admin: 09/27/18 21:31 Dose: 1 drop Atorvastatin Calcium (Lipitor) 40 mg PO HS [facility] Stop: 11/26/18 20:59 Last Admin: 09/28/18 21:17 Dose: 40 mg Atropine Sulfate (Isopto Atropine 1% [facility] Soln) 1 drop RIGHT EYE BID SARAH Stop: 11/26/18 08:59 Last Admin: 09/28/18 18:09 Dose: Not Given Benzonatate (Tessalon) 100 mg PO Q6H PRN PRN Reason: Cough Stop: 11/26/18 05:37 Last Admin: 09/27/18 14:42 Dose: 100 mg Brimonidine Tartrate (Alphagan 0.2% [facility] Sol) 1 drop RIGHT EYE TID SARAH Stop: 11/26/18 08:59 Last Admin: 09/28/18 21:21 Dose: Not Given Carvedilol (Coreg) 3.125 mg PO BID [facility] Stop: 11/26/18 08:59 Last Admin: 09/29/18 08:52 Dose: 3.125 mg Cholecalciferol (Vitamin D3) 1,000 iu PO DAILY [facility] Stop: 11/26/18 08:59 Last Admin: 09/29/18 08:52 Dose: 1,000 iu Clopidogrel Bisulfate (Plavix) 75 mg PO DAILY [facility] Stop: 11/26/18 08:59 Last Admin: 09/29/18 08:52 Dose: 75 mg Docusate Sodium (Colace) 100 mg PO TID [facility]AH Stop: 11/26/18 08:59 Last Admin: 09/29/18 08:53 Dose: 100 mg Dorzolamide/Timolol (Cosopt [facility] Soln) 1 drop RIGHT EYE BID SARAH Stop: 11/26/18 08:59 Last Admin: 09/28/18 18:09 Dose: Not Given Famotidine (Pepcid) 20 mg PO QDAC [facility] Stop: 11/26/18 07:29 Last Admin: 09/29/18 08:53 Dose: 20 mg Folic Acid (Folate) 1 mg PO DAILY [facility] Stop: 11/26/18 08:59 Last Admin: 09/29/18 08:53 Dose: 1 mg Gabapentin (Neurontin) 100 mg PO DAILY [facility] Stop: 11/26/18 08:59 Last Admin: 09/29/18 08:53 Dose: 100 mg Heparin Sodium (Porcine) (Heparin) 5,000 units SUBQ Q12H [facility] Stop: 11/26/18 20:59 Last Admin: 09/29/18 09:08 Dose: Not Given Latanoprost (Xalatan 0.005% Ophth Soln) 1 drop RIGHT EYE HS SARAH Stop: 11/26/18 20:59 Last Admin: 09/28/18 21:21 Dose: Not Given Miscellaneous (Ferric Citrate [Auryxia]) 1 tab PO TID [facility] Stop: 11/26/18 08:59 Miscellaneous (Vte Chemical Prophylaxis Screen/ Admission) 1 ea [facility] PRN PRN PRN Reason: PROTOCOL Stop: 11/26/18 12:56 Morphine Sulfate (Morphine) 1 mg IVP Q4HR PRN PRN Reason: Pain (Moderate) Stop: 11/27/18 06:54 Nitroglycerin (Nitrostat) 0.4 mg SL UD [facility] Stop: 11/26/18 08:59 Last Admin: 09/29/18 08:53 Dose: 0.4 mg Sevelamer Carbonate (Renvela) 800 mg PO TIDWM [facility]AH Stop: 11/26/18 07:59 Last Admin: 09/29/18 08:52 Dose: 800 mg Vitamin B Complex/Vit C/Folic Acid (Vitamin B Complex W/Vitamin C) 1 tab PO DAILY [facility] Stop: 11/26/18 08:59 Last Admin: 09/29/18 08:52 Dose: 1 tab General: Alert, Oriented x3, Mild distress HEENT: Atraumatic, PERRLA, EOMI Neck: Supple, +2 carotid pulse wo bruit Cardiovascular: Regular rate, Normal S1, Normal S2 Lungs: Clear to auscultation Abdomen: Bowel sounds, Soft Extremities: Edema, no Clubbing, no Cyanosis Neurological: Sensation intact Skin: no Rash Psych/Mental Status: Mood NL - Procedures Procedures: Procedures Procedure Code Date DRAINAGE OF BUTTOCK SUBCU/FASCIA, OPEN APPROACH [id number] 01/17/17 DRAINAGE OF SKIN ABSCESS 46906 01/17/17 PERFORMANCE OF URINARY FILTRATION, MULTIPLE [id number] 01/17/17 Assessment/Plan - Assessment Assessment: ESRD on HD Low Back Pain-LS Spine multilevel bulge Ds. 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 Glaucoma CAD Ess Htn T2 DM - Plan Plan: Lab - Result Diagrams 09/27/18 05:40 09/27/18 05:40 Current Medications Acetaminophen (Tylenol) 650 mg PO Q4H PRN PRN Reason: Pain or Fever >101 Stop: 11/26/18 05:37 Acetaminophen/Hydrocodone Bitart ([place] 5mg/325mg) 1 tab PO Q6H PRN PRN Reason: Pain (Moderate) Stop: 11/25/18 20:41 Last Admin: 09/27/18 22:59 Dose: 1 tab Acetazolamide (Diamox) 250 mg PO BID [facility] Stop: 11/26/18 08:59 Last Admin: 09/28/18 09:34 Dose: 250 mg Allopurinol (Zyloprim) 300 mg PO DAILY [facility] Stop: 11/26/18 08:59 Last Admin: 09/28/18 09:26 Dose: 300 mg Amiodarone HCl (Cordarone) 200 mg PO BID [facility] Stop: 11/26/18 08:59 Last Admin: 09/28/18 09:28 Dose: 200 mg Artificial Tears (Artificial Tears Ophth Soln) 1 drop EACH EYE BID PRN PRN Reason: Dry Eye Stop: 11/26/18 05:37 Last Admin: 09/27/18 21:31 Dose: 1 drop Atorvastatin Calcium (Lipitor) 40 mg PO HS [facility] Stop: 11/26/18 20:59 Last Admin: 09/27/18 21:31 Dose: 40 mg Atropine Sulfate (Isopto Atropine 1% Ophth Soln) 1 drop RIGHT EYE BID [facility] Stop: 11/26/18 08:59 Last Admin: 09/28/18 09:31 Dose: Not Given Benzonatate (Tessalon) 100 mg PO Q6H PRN PRN Reason: Cough Stop: 11/26/18 05:37 Last Admin: 09/27/18 14:42 Dose: 100 mg Brimonidine Tartrate (Alphagan 0.2% Ophth Soln) 1 drop RIGHT EYE TID [facility] Stop: 11/26/18 08:59 Last Admin: 09/28/18 09:31 Dose: Not Given Carvedilol (Coreg) 3.125 mg PO BID [facility] Stop: 11/26/18 08:59 Last Admin: 09/28/18 09:25 Dose: 3.125 mg Cholecalciferol (Vitamin D3) 1,000 iu PO DAILY [facility] Stop: 11/26/18 08:59 Last Admin: 09/28/18 09:29 Dose: 1,000 iu Clopidogrel Bisulfate (Plavix) 75 mg PO DAILY [facility] Stop: 11/26/18 08:59 Last Admin: 09/28/18 09:19 Dose: 75 mg Docusate Sodium (Colace) 100 mg PO TID [facility] Stop: 11/26/18 08:59 Last Admin: 09/28/18 09:19 Dose: 100 mg Dorzolamide/Timolol (Cosopt [facility] Soln) 1 drop RIGHT EYE BID [facility] Stop: 11/26/18 08:59 Last Admin: 09/28/18 09:31 Dose: Not Given Famotidine (Pepcid) 20 mg PO QDAC [facility] Stop: 11/26/18 07:29 Last Admin: 09/28/18 09:19 Dose: 20 mg Folic Acid (Folate) 1 mg PO DAILY [facility] Stop: 11/26/18 08:59 Last Admin: 09/28/18 09:19 Dose: 1 mg Gabapentin (Neurontin) 100 mg PO DAILY [facility] Stop: 11/26/18 08:59 Last Admin: 09/28/18 09:18 Dose: 100 mg Heparin Sodium (Porcine) (Heparin) 5,000 units SUBQ Q12H [facility] Stop: 11/26/18 20:59 Last Admin: 09/28/18 09:20 Dose: Not Given Latanoprost (Xalatan 0.005% [facility] Soln) 1 drop RIGHT EYE HS [facility] Stop: 11/26/18 20:59 Last Admin: 09/27/18 21:32 Dose: 1 drop Miscellaneous (Ferric Citrate [Auryxia]) 1 tab PO TID [facility] Stop: 11/26/18 08:59 Miscellaneous (Vte Chemical Prophylaxis Screen/ Admission) 1 ea [facility] PRN PRN PRN Reason: PROTOCOL Stop: 11/26/18 12:56 Morphine Sulfate (Morphine) 1 mg IVP Q4HR PRN PRN Reason: Pain (Moderate) Stop: 11/27/18 06:54 Nitroglycerin (Nitrostat) 0.4 mg SL UD [facility] Stop: 11/26/18 08:59 Last Admin: 09/28/18 10:27 Dose: Not Given Sevelamer Carbonate (Renvela) 800 mg PO TIDWM [facility] Stop: 11/26/18 07:59 Last Admin: 09/28/18 12:03 Dose: Not Given Vitamin B Complex/Vit C/Folic Acid (Vitamin B Complex W/Vitamin C) 1 tab PO DAILY [facility] Stop: 11/26/18 08:59 Last Admin: 09/28/18 09:19 Dose: 1 tab Lab - Result Diagrams 09/27/18 05:40 09/27/18 05:40 scheduled for dialysis tomorrow continue analgesics will eventually require spinal surgeon to eval
--- NOTE | 2018-09-30 08:06 | General Progress Note ---
Subjective - Review of Systems Service Date: 09/30/18 Subjective: Patient is awake, alert. still having low back pain but is not helping. h/o depression. multiple comorbidities. Objective - Results Result Diagrams: 09/27/18 05:40 09/27/18 05:40 Recent Labs: Laboratory Last Values WBC 5.1 Th/cmm (4.8-10.8) 09/27/18 05:40 RBC 2.72 Mil/cmm (4.30-5.70) L 09/27/18 05:40 Hgb 8.9 gm/dL (12-16) L 09/27/18 05:40 Hct 27.6 % (41.0-60) L 09/27/18 05:40 MCV 101.6 fl (80-99) H 09/27/18 05:40 MCH 32.6 pg (26.0-30.0) H 09/27/18 05:40 MCHC Differential 32.1 pg (28.0-36.0) 09/27/18 05:40 RDW 15.4 % (11.5-20.0) 09/27/18 05:40 Plt Count 129 Th/cmm (150-400) L 09/27/18 05:40 MPV 9.5 fl 09/27/18 05:40 Neutrophils % 71.4 % (40.0-80.0) 09/27/18 05:40 Lymphocytes % 17.7 % (20.0-50.0) L 09/27/18 05:40 Monocytes % 5.8 % (2.0-10.0) 09/27/18 05:40 Eosinophils % 4.2 % (0.0-5.0) 09/27/18 05:40 Basophils % 0.9 % (0.0-2.0) 09/27/18 05:40 Sodium 144 mEq/L (136-145) 09/27/18 05:40 Potassium 3.6 mEq/L (3.5-5.1) 09/27/18 05:40 Chloride 103 mEq/L (98-107) 09/27/18 05:40 Carbon Dioxide 30.5 mEq/L (21.0-31.0) 09/27/18 05:40 Anion Gap 14.1 (7.0-16.0) 09/27/18 05:40 BUN 48 mg/dL (7-25) H 09/27/18 05:40 Creatinine 8.5 mg/dL (0.7-1.3) H* 09/27/18 05:40 Est GFR ( Amer) 8.6 ml/min (>90) 09/27/18 05:40 Est GFR (Non-Af Amer) 7.1 ml/min 09/27/18 05:40 BUN/Creatinine Ratio 5.6 09/27/18 05:40 Glucose 80 mg/dL (70-105) 09/27/18 05:40 Calcium 9.4 mg/dL (8.6-10.3) 09/27/18 05:40 Magnesium 2.1 mg/dL (1.9-2.7) 09/26/18 15:19 Total Bilirubin 0.6 mg/dL (0.3-1.0) 09/27/18 05:40 AST 8 U/L (13-39) L 09/27/18 05:40 ALT < 3 U/L (7-52) L 09/27/18 05:40 Alkaline Phosphatase 57 U/L (34-104) 09/27/18 05:40 B-Natriuretic Peptide 898.0 pg/mL (5.0-100.0) H 09/27/18 05:40 Total Protein 6.3 gm/dL (6.0-8.3) 09/27/18 05:40 Albumin 3.5 gm/dL (4.2-5.5) L 09/27/18 05:40 Globulin 2.8 gm/dL 09/27/18 05:40 Albumin/Globulin Ratio 1.3 (1.0-1.8) 09/27/18 05:40 Urine Source CLEAN C 09/27/18 01:46 Urine Color YELLOW 09/27/18 01:46 Urine Clarity CLEAR (CLEAR) 09/27/18 01:46 Urine pH 8.0 (4.6 - 8.0) 09/27/18 01:46 Ur Specific [place] 1.015 (1.005-1.030) 09/27/18 01:46 Urine Protein 100 mg/dL (NEGATIVE) H 09/27/18 01:46 Urine Glucose (UA) NEGATIVE mg/dL (NEGATIVE) 09/27/18 01:46 Urine Ketones TRACE mg/dL (NEGATIVE) 09/27/18 01:46 Urine Blood NEGATIVE (NEGATIVE) 09/27/18 01:46 Urine Nitrate NEGATIVE (NEGATIVE) 09/27/18 01:46 Urine Bilirubin NEGATIVE (NEGATIVE) 09/27/18 01:46 Urine Urobilinogen 0.2 E.U./dL (0.2 - 1.0) 09/27/18 01:46 Ur Leukocyte Esterase NEGATIVE (NEGATIVE) 09/27/18 01:46 Urine RBC 0-2 /hpf (0-5) H 09/27/18 01:46 Urine WBC 0-2 /hpf (0-5) 09/27/18 01:46 Ur Epithelial Cells FEW /lpf (FEW) 09/27/18 01:46 Urine Bacteria FEW /hpf (NONE SEEN) 09/27/18 01:46 - Physical Exam Vitals and I&O: Vital Signs Temp 98.2 F 09/30/18 04:00 Pulse 96 09/30/18 04:00 Resp 18 09/30/18 04:00 BP 106/62 09/30/18 04:00 Pulse Ox 98 09/30/18 04:00 Intake & Output 09/29/18 09/30/18 09/30/18 18:59 06:59 18:59 Intake Total 840 Balance 840 Weight (lbs) 77.111 kg Intake: Oral 840 Other: # Voids 3 # Bowel Movements 1 Stool Characteristics Soft Weight Source Bedscale Active Medications: Current Medications Acetaminophen (Tylenol) 650 mg PO Q4H PRN PRN Reason: Pain or Fever >101 Stop: 11/26/18 05:37 Acetaminophen/Hydrocodone Bitart ([place] 5mg/325mg) 1 tab PO Q6H PRN PRN Reason: Pain (Moderate) Stop: 11/25/18 20:41 Last Admin: 09/27/18 22:59 Dose: 1 tab Acetazolamide (Diamox) 250 mg PO BID [facility] Stop: 11/26/18 08:59 Last Admin: 09/29/18 18:04 Dose: 250 mg Allopurinol (Zyloprim) 300 mg PO DAILY [facility] Stop: 11/26/18 08:59 Last Admin: 09/29/18 08:53 Dose: 300 mg Amiodarone HCl (Cordarone) 200 mg PO BID [facility] Stop: 11/26/18 08:59 Last Admin: 09/29/18 18:04 Dose: 200 mg Artificial Tears (Artificial Tears Ophth Soln) 1 drop EACH EYE BID PRN PRN Reason: Dry Eye Stop: 11/26/18 05:37 Last Admin: 09/27/18 21:31 Dose: 1 drop Atorvastatin Calcium (Lipitor) 40 mg PO HS [facility] Stop: 11/26/18 20:59 Last Admin: 09/29/18 20:33 Dose: 40 mg Atropine Sulfate (Isopto Atropine 1% Oph Soln) 1 drop RIGHT EYE BID [facility] Stop: 11/26/18 08:59 Last Admin: 09/29/18 18:04 Dose: 1 drop Benzonatate (Tessalon) 100 mg PO Q6H PRN PRN Reason: Cough Stop: 11/26/18 05:37 Last Admin: 09/27/18 14:42 Dose: 100 mg Brimonidine Tartrate (Alphagan 0.2% Oph Soln) 1 drop RIGHT EYE TID [facility] Stop: 11/26/18 08:59 Last Admin: 09/29/18 20:36 Dose: Not Given Carvedilol (Coreg) 3.125 mg PO BID [facility] Stop: 11/26/18 08:59 Last Admin: 09/29/18 18:05 Dose: 3.125 mg Cholecalciferol (Vitamin D3) 1,000 iu PO DAILY [facility] Stop: 11/26/18 08:59 Last Admin: 09/29/18 08:52 Dose: 1,000 iu Clopidogrel Bisulfate (Plavix) 75 mg PO DAILY [facility] Stop: 11/26/18 08:59 Last Admin: 09/29/18 08:52 Dose: 75 mg Docusate Sodium (Colace) 100 mg PO TID [facility] Stop: 11/26/18 08:59 Last Admin: 09/29/18 20:35 Dose: Not Given Dorzolamide/Timolol (Cosopt Ophth Soln) 1 drop RIGHT EYE BID [facility] Stop: 11/26/18 08:59 Last Admin: 09/29/18 18:04 Dose: 1 drop Famotidine (Pepcid) 20 mg PO QDAC [facility] Stop: 11/26/18 07:29 Last Admin: 09/30/18 06:45 Dose: Not Given Folic Acid (Folate) 1 mg PO DAILY [facility] Stop: 11/26/18 08:59 Last Admin: 09/29/18 08:53 Dose: 1 mg Gabapentin (Neurontin) 100 mg PO DAILY [facility] Stop: 11/26/18 08:59 Last Admin: 09/29/18 08:53 Dose: 100 mg Heparin Sodium (Porcine) (Heparin) 5,000 units SUBQ Q12H [facility] Stop: 11/26/18 20:59 Last Admin: 09/29/18 20:35 Dose: Not Given Latanoprost (Xalatan 0.005% Ophth Soln) 1 drop RIGHT EYE HS [facility] Stop: 11/26/18 20:59 Last Admin: 09/29/18 20:35 Dose: Not Given Miscellaneous (Ferric Citrate [Auryxia]) 1 tab PO TID [facility] Stop: 11/26/18 08:59 Miscellaneous (Vte Chemical Prophylaxis Screen/ Admission) 1 ea MC PRN PRN PRN Reason: PROTOCOL Stop: 11/26/18 12:56 Morphine Sulfate (Morphine) 1 mg IVP Q4HR PRN PRN Reason: Pain (Moderate) Stop: 11/27/18 06:54 Nitroglycerin (Nitrostat) 0.4 mg SL UD [facility] Stop: 11/26/18 08:59 Last Admin: 09/29/18 08:53 Dose: 0.4 mg Sevelamer Carbonate (Renvela) 800 mg PO TIDWM [facility] Stop: 11/26/18 07:59 Last Admin: 09/29/18 18:04 Dose: 800 mg Vitamin B Complex/Vit C/Folic Acid (Vitamin B Complex W/Vitamin C) 1 tab PO DAILY [facility] Stop: 11/26/18 08:59 Last Admin: 09/29/18 08:52 Dose: 1 tab General: Alert, Oriented x3, Mild distress HEENT: Atraumatic, PERRLA, EOMI Neck: Supple, +2 carotid pulse wo bruit Cardiovascular: Regular rate, Normal S1, Normal S2 Lungs: Clear to auscultation Abdomen: Bowel sounds, Soft Extremities: Edema, no Clubbing, no Cyanosis Neurological: Sensation intact Skin: no Rash Psych/Mental Status: Mood NL - Procedures Procedures: Procedures Procedure Code Date DRAINAGE OF BUTTOCK SUBCU/FASCIA, OPEN APPROACH [id number] 01/17/17 DRAINAGE OF SKIN ABSCESS 85898 01/17/17 PERFORMANCE OF URINARY FILTRATION, MULTIPLE [id number] 01/17/17 Assessment/Plan - Assessment Assessment: Intractable low back pain severe degenerative disc disease Low Back Pain-LS Spine multilevel bulge Ds. w/ Spinal Canal/Neural Foraminal Narrowing Legally Blind 2/2 Glaucoma CAD Ess Htn T2 DM HTN DM CAD ESRD on HD GERD legally blind h/o MS S/P AICD Type 2 DM Glaucoma Gout Major Depressive d/o Hyperlipidemia A Fib - Plan Plan: repeat CBC, CMP continue home meds nephrology consult cardiology consult pain control CT lumbar spine without contrast
[2018-09-30] MEDS: Vitamin B Complex w/Vitamin C Tab PO SCH (09:12)
--- NOTE | 2018-09-30 14:35 | General Progress Note ---
Subjective - Review of Systems Service Date: 09/30/18 Subjective: still has intermittent lower back pain Objective - Results Result Diagrams: 09/27/18 05:40 09/27/18 05:40 Recent Labs: Laboratory Last Values WBC 5.1 Th/cmm (4.8-10.8) 09/27/18 05:40 RBC 2.72 Mil/cmm (4.30-5.70) L 09/27/18 05:40 Hgb 8.9 gm/dL (12-16) L 09/27/18 05:40 Hct 27.6 % (41.0-60) L 09/27/18 05:40 MCV 101.6 fl (80-99) H 09/27/18 05:40 MCH 32.6 pg (26.0-30.0) H 09/27/18 05:40 MCHC Differential 32.1 pg (28.0-36.0) 09/27/18 05:40 RDW 15.4 % (11.5-20.0) 09/27/18 05:40 Plt Count 129 Th/cmm (150-400) L 09/27/18 05:40 MPV 9.5 fl 09/27/18 05:40 Neutrophils % 71.4 % (40.0-80.0) 09/27/18 05:40 Lymphocytes % 17.7 % (20.0-50.0) L 09/27/18 05:40 Monocytes % 5.8 % (2.0-10.0) 09/27/18 05:40 Eosinophils % 4.2 % (0.0-5.0) 09/27/18 05:40 Basophils % 0.9 % (0.0-2.0) 09/27/18 05:40 Sodium 144 mEq/L (136-145) 09/27/18 05:40 Potassium 3.6 mEq/L (3.5-5.1) 09/27/18 05:40 Chloride 103 mEq/L (98-107) 09/27/18 05:40 Carbon Dioxide 30.5 mEq/L (21.0-31.0) 09/27/18 05:40 Anion Gap 14.1 (7.0-16.0) 09/27/18 05:40 BUN 48 mg/dL (7-25) H 09/27/18 05:40 Creatinine 8.5 mg/dL (0.7-1.3) H* 09/27/18 05:40 Est GFR ( Amer) 8.6 ml/min (>90) 09/27/18 05:40 Est GFR (Non-Af Amer) 7.1 ml/min 09/27/18 05:40 BUN/Creatinine Ratio 5.6 09/27/18 05:40 Glucose 80 mg/dL (70-105) 09/27/18 05:40 Calcium 9.4 mg/dL (8.6-10.3) 09/27/18 05:40 Magnesium 2.1 mg/dL (1.9-2.7) 09/26/18 15:19 Total Bilirubin 0.6 mg/dL (0.3-1.0) 09/27/18 05:40 AST 8 U/L (13-39) L 09/27/18 05:40 ALT < 3 U/L (7-52) L 09/27/18 05:40 Alkaline Phosphatase 57 U/L (34-104) 09/27/18 05:40 B-Natriuretic Peptide 898.0 pg/mL (5.0-100.0) H 09/27/18 05:40 Total Protein 6.3 gm/dL (6.0-8.3) 09/27/18 05:40 Albumin 3.5 gm/dL (4.2-5.5) L 09/27/18 05:40 Globulin 2.8 gm/dL 09/27/18 05:40 Albumin/Globulin Ratio 1.3 (1.0-1.8) 09/27/18 05:40 Urine Source CLEAN C 09/27/18 01:46 Urine Color YELLOW 09/27/18 01:46 Urine Clarity CLEAR (CLEAR) 09/27/18 01:46 Urine pH 8.0 (4.6 - 8.0) 09/27/18 01:46 Ur Specific [place] 1.015 (1.005-1.030) 09/27/18 01:46 Urine Protein 100 mg/dL (NEGATIVE) H 09/27/18 01:46 Urine Glucose (UA) NEGATIVE mg/dL (NEGATIVE) 09/27/18 01:46 Urine Ketones TRACE mg/dL (NEGATIVE) 09/27/18 01:46 Urine Blood NEGATIVE (NEGATIVE) 09/27/18 01:46 Urine Nitrate NEGATIVE (NEGATIVE) 09/27/18 01:46 Urine Bilirubin NEGATIVE (NEGATIVE) 09/27/18 01:46 Urine Urobilinogen 0.2 E.U./dL (0.2 - 1.0) 09/27/18 01:46 Ur Leukocyte Esterase NEGATIVE (NEGATIVE) 09/27/18 01:46 Urine RBC 0-2 /hpf (0-5) H 09/27/18 01:46 Urine WBC 0-2 /hpf (0-5) 09/27/18 01:46 Ur Epithelial Cells FEW /lpf (FEW) 09/27/18 01:46 Urine Bacteria FEW /hpf (NONE SEEN) 09/27/18 01:46 - Physical Exam Vitals and I&O: Vital Signs Temp 96.3 F 09/30/18 11:38 Pulse 82 09/30/18 11:38 Resp 19 09/30/18 11:38 BP 125/89 09/30/18 11:38 Pulse Ox 98 09/30/18 11:38 Intake & Output 09/29/18 09/30/18 09/30/18 18:59 06:59 18:59 Intake Total 840 Balance 840 Weight (lbs) 77.111 kg Intake: Oral 840 Other: # Voids 3 # Bowel Movements 1 Stool Characteristics Soft Weight Source Bedscale Active Medications: Current Medications Acetaminophen (Tylenol) 650 mg PO Q4H PRN PRN Reason: Pain or Fever >101 Stop: 11/26/18 05:37 Acetaminophen/Hydrocodone Bitart ([place] 5mg/325mg) 1 tab PO Q6H PRN PRN Reason: Pain (Moderate) Stop: 11/25/18 20:41 Last Admin: 09/27/18 22:59 Dose: 1 tab Acetazolamide (Diamox) 250 mg PO BID [facility] Stop: 11/26/18 08:59 Last Admin: 09/30/18 09:36 Dose: 250 mg Allopurinol (Zyloprim) 300 mg PO DAILY [facility] Stop: 11/26/18 08:59 Last Admin: 09/30/18 09:12 Dose: 300 mg Amiodarone HCl (Cordarone) 200 mg PO BID [facility] Stop: 11/26/18 08:59 Last Admin: 09/30/18 09:12 Dose: 200 mg Artificial Tears (Artificial Tears Oph Soln) 1 drop EACH EYE BID PRN PRN Reason: Dry Eye Stop: 11/26/18 05:37 Last Admin: 09/27/18 21:31 Dose: 1 drop Atorvastatin Calcium (Lipitor) 40 mg PO HS [facility] Stop: 11/26/18 20:59 Last Admin: 09/29/18 20:33 Dose: 40 mg Atropine Sulfate (Isopto Atropine 1% Oph Soln) 1 drop RIGHT EYE BID [facility] Stop: 11/26/18 08:59 Last Admin: 09/30/18 09:38 Dose: Not Given Benzonatate (Tessalon) 100 mg PO Q6H PRN PRN Reason: Cough Stop: 11/26/18 05:37 Last Admin: 09/27/18 14:42 Dose: 100 mg Brimonidine Tartrate (Alphagan 0.2% [facility] Soln) 1 drop RIGHT EYE TID [facility] Stop: 11/26/18 08:59 Last Admin: 09/30/18 13:16 Dose: Not Given Carvedilol (Coreg) 3.125 mg PO BID [facility] Stop: 11/26/18 08:59 Last Admin: 09/30/18 09:12 Dose: 3.125 mg Cholecalciferol (Vitamin D3) 1,000 iu PO DAILY [facility] Stop: 11/26/18 08:59 Last Admin: 09/30/18 09:12 Dose: 1,000 iu Clopidogrel Bisulfate (Plavix) 75 mg PO DAILY [facility] Stop: 11/26/18 08:59 Last Admin: 09/30/18 09:11 Dose: 75 mg Docusate Sodium (Colace) 100 mg PO TID [facility] Stop: 11/26/18 08:59 Last Admin: 09/30/18 13:16 Dose: Not Given Dorzolamide/Timolol (Cosopt Oph Soln) 1 drop RIGHT EYE BID [facility] Stop: 11/26/18 08:59 Last Admin: 09/30/18 09:38 Dose: Not Given Famotidine (Pepcid) 20 mg PO QDAC [facility] Stop: 11/26/18 07:29 Last Admin: 09/30/18 06:45 Dose: Not Given Folic Acid (Folate) 1 mg PO DAILY [facility] Stop: 11/26/18 08:59 Last Admin: 09/30/18 09:11 Dose: 1 mg Gabapentin (Neurontin) 100 mg PO DAILY [facility] Stop: 11/26/18 08:59 Last Admin: 09/30/18 09:11 Dose: 100 mg Heparin Sodium (Porcine) (Heparin) 5,000 units SUBQ Q12H [facility] Stop: 11/26/18 20:59 Last Admin: 09/30/18 09:13 Dose: Not Given Latanoprost (Xalatan 0.005% Ophth Soln) 1 drop RIGHT EYE HS [facility] Stop: 11/26/18 20:59 Last Admin: 09/29/18 20:35 Dose: Not Given Miscellaneous (Ferric Citrate [Auryxia]) 1 tab PO TID [facility] Stop: 11/26/18 08:59 Miscellaneous (Vte Chemical Prophylaxis Screen/ Admission) 1 ea MC PRN PRN PRN Reason: PROTOCOL Stop: 11/26/18 12:56 Morphine Sulfate (Morphine) 1 mg IVP Q4HR PRN PRN Reason: Pain (Moderate) Stop: 11/27/18 06:54 Nitroglycerin (Nitrostat) 0.4 mg SL UD [facility] Stop: 11/26/18 08:59 Last Admin: 09/30/18 09:13 Dose: 0.4 mg Sevelamer Carbonate (Renvela) 800 mg PO TIDWM [facility] Stop: 11/26/18 07:59 Last Admin: 09/30/18 13:36 Dose: Not Given Vitamin B Complex/Vit C/Folic Acid (Vitamin B Complex W/Vitamin C) 1 tab PO DAILY [facility] Stop: 11/26/18 08:59 Last Admin: 09/30/18 09:12 Dose: 1 tab General: Alert, Oriented x3, Mild distress HEENT: Atraumatic, PERRLA, EOMI Neck: Supple, +2 carotid pulse wo bruit Cardiovascular: Regular rate, Normal S1, Normal S2 Lungs: Clear to auscultation Abdomen: Bowel sounds, Soft Extremities: Edema, no Clubbing, no Cyanosis Neurological: Sensation intact Skin: no Rash Psych/Mental Status: Mood NL - Procedures Procedures: Procedures Procedure Code Date DRAINAGE OF BUTTOCK SUBCU/FASCIA, OPEN APPROACH [id number] 01/17/17 DRAINAGE OF SKIN ABSCESS 26298 01/17/17 PERFORMANCE OF URINARY FILTRATION, MULTIPLE [id number] 04/26/17 Assessment/Plan - Assessment Assessment: ESRD on HD Low Back Pain-LS Spine multilevel bulge Ds. 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 Glaucoma CAD Ess Htn T2 DM - Plan Plan: Lab - Result Diagrams 09/27/18 05:40 09/27/18 05:40 Current Medications Acetaminophen (Tylenol) 650 mg PO Q4H PRN PRN Reason: Pain or Fever >101 Stop: 11/26/18 05:37 Acetaminophen/Hydrocodone Bitart ([place] 5mg/325mg) 1 tab PO Q6H PRN PRN Reason: Pain (Moderate) Stop: 11/25/18 20:41 Last Admin: 09/27/18 22:59 Dose: 1 tab Acetazolamide (Diamox) 250 mg PO BID [facility] Stop: 11/26/18 08:59 Last Admin: 09/28/18 09:34 Dose: 250 mg Allopurinol (Zyloprim) 300 mg PO DAILY [facility] Stop: 11/26/18 08:59 Last Admin: 09/28/18 09:26 Dose: 300 mg Amiodarone HCl (Cordarone) 200 mg PO BID [facility] Stop: 11/26/18 08:59 Last Admin: 09/28/18 09:28 Dose: 200 mg Artificial Tears (Artificial Tears Ophth Soln) 1 drop EACH EYE BID PRN PRN Reason: Dry Eye Stop: 11/26/18 05:37 Last Admin: 09/27/18 21:31 Dose: 1 drop Atorvastatin Calcium (Lipitor) 40 mg PO HS [facility] Stop: 11/26/18 20:59 Last Admin: 09/27/18 21:31 Dose: 40 mg Atropine Sulfate (Isopto Atropine 1% Ophth Soln) 1 drop RIGHT EYE BID [facility] Stop: 11/26/18 08:59 Last Admin: 09/28/18 09:31 Dose: Not Given Benzonatate (Tessalon) 100 mg PO Q6H PRN PRN Reason: Cough Stop: 11/26/18 05:37 Last Admin: 09/27/18 14:42 Dose: 100 mg Brimonidine Tartrate (Alphagan 0.2% Ophth Soln) 1 drop RIGHT EYE TID [facility] Stop: 11/26/18 08:59 Last Admin: 09/28/18 09:31 Dose: Not Given Carvedilol (Coreg) 3.125 mg PO BID [facility] Stop: 11/26/18 08:59 Last Admin: 09/28/18 09:25 Dose: 3.125 mg Cholecalciferol (Vitamin D3) 1,000 iu PO DAILY [facility] Stop: 11/26/18 08:59 Last Admin: 09/28/18 09:29 Dose: 1,000 iu Clopidogrel Bisulfate (Plavix) 75 mg PO DAILY [facility] Stop: 11/26/18 08:59 Last Admin: 09/28/18 09:19 Dose: 75 mg Docusate Sodium (Colace) 100 mg PO TID [facility] Stop: 11/26/18 08:59 Last Admin: 09/28/18 09:19 Dose: 100 mg Dorzolamide/Timolol (Cosopt [facility] Soln) 1 drop RIGHT EYE BID [facility] Stop: 11/26/18 08:59 Last Admin: 09/28/18 09:31 Dose: Not Given Famotidine (Pepcid) 20 mg PO QDAC [facility] Stop: 11/26/18 07:29 Last Admin: 09/28/18 09:19 Dose: 20 mg Folic Acid (Folate) 1 mg PO DAILY [facility] Stop: 11/26/18 08:59 Last Admin: 09/28/18 09:19 Dose: 1 mg Gabapentin (Neurontin) 100 mg PO DAILY [facility] Stop: 11/26/18 08:59 Last Admin: 09/28/18 09:18 Dose: 100 mg Heparin Sodium (Porcine) (Heparin) 5,000 units SUBQ Q12H [facility] Stop: 11/26/18 20:59 Last Admin: 09/28/18 09:20 Dose: Not Given Latanoprost (Xalatan 0.005% [facility] Soln) 1 drop RIGHT EYE HS [facility] Stop: 11/26/18 20:59 Last Admin: 09/27/18 21:32 Dose: 1 drop Miscellaneous (Ferric Citrate [Auryxia]) 1 tab PO TID [facility] Stop: 11/26/18 08:59 Miscellaneous (Vte Chemical Prophylaxis Screen/ Admission) 1 ea MC PRN PRN PRN Reason: PROTOCOL Stop: 11/26/18 12:56 Morphine Sulfate (Morphine) 1 mg IVP Q4HR PRN PRN Reason: Pain (Moderate) Stop: 11/27/18 06:54 Nitroglycerin (Nitrostat) 0.4 mg SL UD [facility] Stop: 11/26/18 08:59 Last Admin: 09/28/18 10:27 Dose: Not Given Sevelamer Carbonate (Renvela) 800 mg PO TIDWM [facility] Stop: 11/26/18 07:59 Last Admin: 09/28/18 12:03 Dose: Not Given Vitamin B Complex/Vit C/Folic Acid (Vitamin B Complex W/Vitamin C) 1 tab PO DAILY [facility] Stop: 11/26/18 08:59 Last Admin: 09/28/18 09:19 Dose: 1 tab Lab - Result Diagrams 09/27 Lab - Result Diagrams 09/27/18 05:40 09/27/18 05:40 09/27/18 05:40 scheduled for dialysis today continue analgesics will eventually require spinal surgeon to eval
[2018-09-30 15:37] LABS: % BASOPHILS 0.9 % (0.0-2.0); % EOSINOPHILS 4.6 % (0.0-5.0); % LYMPHOCYTES 15.4 % (20.0-50.0); % MONOCYTES 5.1 % (2.0-10.0); EOSINOPHILE ABSOLUTE 0.2 Th/cmm (0.1-0.4); HEMATOCRIT 29.6 % (41.0-60); HEMOGLOBIN 9.4 gm/dL (12-16); LYMPHOCYTE ABSOLUTE 0.8 Th/cmm (1.5-3.0); MEAN CELL VOLUME 100.6 fl (80-99); MEAN CORPUSCULAR HEMOGLOBIN 31.9 pg (26.0-30.0); MEAN CORPUSCULAR HGB CONC 31.7 pg (28.0-36.0); MEAN PLATELET VOLUME 8.4 fl; MONOCYTE ABSOLUTE 0.3 Th/cmm (0.3-1.0); PLATELET COUNT 130 Th/cmm (150-400); RED BLOOD COUNT 2.94 Mil/cmm (4.30-5.70); WHITE BLOOD COUNT 5.3 Th/cmm (4.8-10.8)
[2018-09-30 15:50] LABS: ANION GAP 18.7 (7.0-16.0); CALCIUM SERUM 9.4 mg/dL (8.6-10.3); CARBON DIOXIDE 25.1 mEq/L (21.0-31.0); GFR AFRICAN-AMERICAN 7.9 ml/min (>90); GFR NON AFRICAN-AMERICAN 6.5 ml/min; POTASSIUM SERUM 3.8 mEq/L (3.5-5.1)
[2018-09-30 15:54] LABS: CREATININE - SERUM 9.2 mg/dL (0.7-1.3)
--- NOTE | 2018-10-01 00:17 | Consultation ---
DATE OF CONSULTATION: 09/30/2018 IDENTIFYING INFORMATION: The patient is a 47-year-old male. REASON FOR CONSULTATION: I was asked to see the patient because of depression. HISTORY OF PRESENT ILLNESS: He presented to [facility] for back pain for the past 6 days. He is a resident at a SNF facility. He states that he has been offered Tylenol for his pain without relief. The patient has a history of hypertension, diabetes mellitus, coronary artery disease, and ESRD. He has GERD. He is legally blind. He has history of MT, status post AICD, type 2 diabetes mellitus, glaucoma, gout, major depression, hyperlipidemia, and atrial fibrillation. He is unhappy with his current place of residence, states that he would like to transfer elsewhere. When I talked to the patient, he was very friendly and very cooperative. He admits that he has been depressed for the last 1-1/2 years since he became blind because of his diabetes. He reports that he sleeps well. He eats well. He reports he was tried on many medications before; however, none of them helped him. He felt dizzy when he took it and he does not want to be on any medication. He reports he never had any intent to harm himself or anybody. He denies any auditory or visual hallucination. PAST PSYCHIATRIC HISTORY: Depression for the last 1-1/2 years. He was seen by psychiatrist and tried on different medications, none of them helped. He is not interested in any psychotropic medications. He denies any prior suicide attempt and he would never do this, he said, because of his son. MEDICAL HISTORY: As per medical doctor. ALLERGIES: The patient has no known drug allergy. PSYCHOTROPIC MEDICATIONS: The patient is not on any psychotropic medication, refuses to be on any psychotropic medication. FAMILY AND SOCIAL HISTORY: The patient reports that he has been . He has one child. He said that he will never do anything to harm himself because he has a kid. 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 He has college education. Denies substance abuse. Denies any family history of psychotic disorder. MENTAL STATUS EXAMINATION: The patient is appropriately dressed in hospital gown. He was alert. He was able to tell me the date, where he is, why he is here. He has full range of affect. He admits to feeling depressed because of being blind, but he denies any intent to harm himself or anybody. He denies any auditory or visual hallucinations or paranoia. He denies feeling paranoid. 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 Recent memory is good with regards to events of coming here, what he ate for breakfast. Immediate memory is good ____ could remember 3 out of 3 in 5 minutes. Insight and judgment is fair. IMPRESSION: Major depression, moderate, with no psychosis. Medical diagnoses as per medical doctor. RECOMMENDATIONS: The patient refused to be on any medication. I do not want to give him any medication without his consent; however, if he changes his mind, I will be happy to do that; however, we have to be careful because of his glaucoma and most antidepressants need to be first authorized by the land leasing examiner if he has closed angle glaucoma. However, meanwhile, the patient may do well during therapy. I do recommend for the patient to follow up with a therapist on discharge if he did not want to be on medication. Thank you very much for allowing me to participate in the care of this most interesting gentleman. JOB# [id number]
[2018-10-01 07:02] LABS: INR 0.98 (0.5-1.4); PROTHROMBIN TIME (TEST) 10.2 SECONDS (9.5-11.5)
--- NOTE | 2018-10-01 08:37 | General Progress Note ---
Subjective - Review of Systems Service Date: 10/01/18 Subjective: Patient is awake, alert. still having low back pain but improving. dialysis per nephrology. h/o depression. was seen by psychiatrist. Objective - Results Result Diagrams: 09/30/18 15:30 09/30/18 15:30 Recent Labs: Laboratory Last Values WBC 5.3 Th/cmm (4.8-10.8) 09/30/18 15:30 RBC 2.94 Mil/cmm (4.30-5.70) L 09/30/18 15:30 Hgb 9.4 gm/dL (12-16) L 09/30/18 15:30 Hct 29.6 % (41.0-60) L 09/30/18 15:30 MCV 100.6 fl (80-99) H 09/30/18 15:30 MCH 31.9 pg (26.0-30.0) H 09/30/18 15:30 MCHC Differential 31.7 pg (28.0-36.0) 09/30/18 15:30 RDW 16.0 % (11.5-20.0) 09/30/18 15:30 Plt Count 130 Th/cmm (150-400) L 09/30/18 15:30 MPV 8.4 fl 09/30/18 15:30 Neutrophils % 74.0 % (40.0-80.0) 09/30/18 15:30 Lymphocytes % 15.4 % (20.0-50.0) L 09/30/18 15:30 Monocytes % 5.1 % (2.0-10.0) 09/30/18 15:30 Eosinophils % 4.6 % (0.0-5.0) 09/30/18 15:30 Basophils % 0.9 % (0.0-2.0) 09/30/18 15:30 ESR 58 mm/hr (0-20) H 10/01/18 06:00 PT 10.2 SECONDS (9.5-11.5) 10/01/18 06:00 INR 0.98 (0.5-1.4) 10/01/18 06:00 PTT (Actin FS) 29.7 SECONDS (26.0-38.0) 10/01/18 06:00 Sodium 141 mEq/L (136-145) 09/30/18 15:30 Potassium 3.8 mEq/L (3.5-5.1) 09/30/18 15:30 Chloride 101 mEq/L (98-107) 09/30/18 15:30 Carbon Dioxide 25.1 mEq/L (21.0-31.0) 09/30/18 15:30 Anion Gap 18.7 (7.0-16.0) H 09/30/18 15:30 BUN 56 mg/dL (7-25) H 09/30/18 15:30 Creatinine 9.2 mg/dL (0.7-1.3) H* 09/30/18 15:30 Est GFR ( Amer) 7.9 ml/min (>90) 09/30/18 15:30 Est GFR (Non-Af Amer) 6.5 ml/min 09/30/18 15:30 BUN/Creatinine Ratio 6.1 09/30/18 15:30 Glucose 83 mg/dL (70-105) 09/30/18 15:30 Calcium 9.4 mg/dL (8.6-10.3) 09/30/18 15:30 Magnesium 2.1 mg/dL (1.9-2.7) 09/26/18 15:19 Total Bilirubin 0.6 mg/dL (0.3-1.0) 09/27/18 05:40 AST 8 U/L (13-39) L 09/27/18 05:40 ALT < 3 U/L (7-52) L 09/27/18 05:40 Alkaline Phosphatase 57 U/L (34-104) 09/27/18 05:40 C-Reactive Protein 1.8 mg/dL (0.0-0.9) H 10/01/18 06:00 B-Natriuretic Peptide 898.0 pg/mL (5.0-100.0) H 09/27/18 05:40 Total Protein 6.3 gm/dL (6.0-8.3) 09/27/18 05:40 Albumin 3.5 gm/dL (4.2-5.5) L 09/27/18 05:40 Globulin 2.8 gm/dL 09/27/18 05:40 Albumin/Globulin Ratio 1.3 (1.0-1.8) 09/27/18 05:40 TSH 3.95 uIU/ml (0.34-5.60) 10/01/18 06:00 Urine Source CLEAN C 09/27/18 01:46 Urine Color YELLOW 09/27/18 01:46 Urine Clarity CLEAR (CLEAR) 09/27/18 01:46 Urine pH 8.0 (4.6 - 8.0) 09/27/18 01:46 Ur Specific [place] 1.015 (1.005-1.030) 09/27/18 01:46 Urine Protein 100 mg/dL (NEGATIVE) H 09/27/18 01:46 Urine Glucose (UA) NEGATIVE mg/dL (NEGATIVE) 09/27/18 01:46 Urine Ketones TRACE mg/dL (NEGATIVE) 09/27/18 01:46 Urine Blood NEGATIVE (NEGATIVE) 09/27/18 01:46 Urine Nitrate NEGATIVE (NEGATIVE) 09/27/18 01:46 Urine Bilirubin NEGATIVE (NEGATIVE) 09/27/18 01:46 Urine Urobilinogen 0.2 E.U./dL (0.2 - 1.0) 09/27/18 01:46 Ur Leukocyte Esterase NEGATIVE (NEGATIVE) 09/27/18 01:46 Urine RBC 0-2 /hpf (0-5) H 09/27/18 01:46 Urine WBC 0-2 /hpf (0-5) 09/27/18 01:46 Ur Epithelial Cells FEW /lpf (FEW) 09/27/18 01:46 Urine Bacteria FEW /hpf (NONE SEEN) 09/27/18 01:46 - Physical Exam Vitals and I&O: Vital Signs Temp 98.2 F 10/01/18 04:00 Pulse 97 10/01/18 04:00 Resp 19 10/01/18 04:00 BP 121/72 10/01/18 04:00 Pulse Ox 99 10/01/18 04:00 Intake & Output 09/30/18 10/01/18 10/01/18 18:59 06:59 18:59 Intake Total 250 150 Balance 250 150 Weight (lbs) 77.111 kg 77.111 kg Intake: Oral 250 150 Other: # Voids 2 0 # Bowel Movements 0 0 Weight Source Bedscale Bedscale Active Medications: Current Medications Acetaminophen (Tylenol) 650 mg PO Q4H PRN PRN Reason: Pain or Fever >101 Stop: 11/26/18 05:37 Acetaminophen/Hydrocodone Bitart ([place] 5mg/325mg) 1 tab PO Q6H PRN PRN Reason: Pain (Moderate) Stop: 11/25/18 20:41 Last Admin: 09/27/18 22:59 Dose: 1 tab Acetazolamide (Diamox) 250 mg PO BID [facility] Stop: 11/26/18 08:59 Last Admin: 09/30/18 18:21 Dose: 250 mg Allopurinol (Zyloprim) 300 mg PO DAILY [facility] Stop: 11/26/18 08:59 Last Admin: 09/30/18 09:12 Dose: 300 mg Amiodarone HCl (Cordarone) 200 mg PO BID [facility] Stop: 11/26/18 08:59 Last Admin: 09/30/18 18:21 Dose: 200 mg Artificial Tears (Artificial Tears Ophth Soln) 1 drop EACH EYE BID PRN PRN Reason: Dry Eye Stop: 11/26/18 05:37 Last Admin: 09/27/18 21:31 Dose: 1 drop Atorvastatin Calcium (Lipitor) 40 mg PO HS [facility] Stop: 11/26/18 20:59 Last Admin: 09/30/18 21:18 Dose: 40 mg Atropine Sulfate (Isopto Atropine 1% Ophth Soln) 1 drop RIGHT EYE BID [facility] Stop: 11/26/18 08:59 Last Admin: 09/30/18 18:18 Dose: Not Given Benzonatate (Tessalon) 100 mg PO Q6H PRN PRN Reason: Cough Stop: 11/26/18 05:37 Last Admin: 09/27/18 14:42 Dose: 100 mg Brimonidine Tartrate (Alphagan 0.2% Oph Soln) 1 drop RIGHT EYE TID [facility] Stop: 11/26/18 08:59 Last Admin: 09/30/18 21:19 Dose: Not Given Carvedilol (Coreg) 3.125 mg PO BID [facility] Stop: 11/26/18 08:59 Last Admin: 09/30/18 18:22 Dose: 3.125 mg Cholecalciferol (Vitamin D3) 1,000 iu PO DAILY [facility] Stop: 11/26/18 08:59 Last Admin: 09/30/18 09:12 Dose: 1,000 iu Clopidogrel Bisulfate (Plavix) 75 mg PO DAILY [facility] Stop: 11/26/18 08:59 Last Admin: 09/30/18 09:11 Dose: 75 mg Docusate Sodium (Colace) 100 mg PO TID [facility] Stop: 11/26/18 08:59 Last Admin: 09/30/18 21:19 Dose: 100 mg Dorzolamide/Timolol (Cosopt Ophth Soln) 1 drop RIGHT EYE BID [facility] Stop: 11/26/18 08:59 Last Admin: 09/30/18 18:18 Dose: Not Given Famotidine (Pepcid) 20 mg PO QDAC [facility] Stop: 11/26/18 07:29 Last Admin: 10/01/18 06:54 Dose: 20 mg Folic Acid (Folate) 1 mg PO DAILY [facility] Stop: 11/26/18 08:59 Last Admin: 09/30/18 09:11 Dose: 1 mg Gabapentin (Neurontin) 100 mg PO DAILY [facility] Stop: 11/26/18 08:59 Last Admin: 09/30/18 09:11 Dose: 100 mg Heparin Sodium (Porcine) (Heparin) 5,000 units SUBQ Q12H [facility] Stop: 11/26/18 20:59 Last Admin: 09/30/18 21:19 Dose: Not Given Latanoprost (Xalatan 0.005% Oph Soln) 1 drop RIGHT EYE HS [facility] Stop: 11/26/18 20:59 Last Admin: 09/30/18 21:19 Dose: Not Given Miscellaneous (Ferric Citrate [Auryxia]) 1 tab PO TID [facility] Stop: 11/26/18 08:59 Miscellaneous (Vte Chemical Prophylaxis Screen/ Admission) 1 ea MC PRN PRN PRN Reason: PROTOCOL Stop: 11/26/18 12:56 Miscellaneous (Clinical Monitoring) 1 ea MC DAILY PRN PRN Reason: RENAL DOSING Stop: 11/29/18 16:15 Morphine Sulfate (Morphine) 1 mg IVP Q4HR PRN PRN Reason: Pain (Moderate) Stop: 11/27/18 06:54 Nitroglycerin (Nitrostat) 0.4 mg SL UD [facility] Stop: 11/26/18 08:59 Last Admin: 09/30/18 09:13 Dose: 0.4 mg Sevelamer Carbonate (Renvela) 800 mg PO TIDWM [facility] Stop: 11/26/18 07:59 Last Admin: 09/30/18 18:21 Dose: 800 mg Vitamin B Complex/Vit C/Folic Acid (Vitamin B Complex W/Vitamin C) 1 tab PO DAILY [facility] Stop: 11/26/18 08:59 Last Admin: 09/30/18 09:12 Dose: 1 tab General: Alert, Oriented x3, Mild distress HEENT: Atraumatic, PERRLA, EOMI Neck: Supple, +2 carotid pulse wo bruit Cardiovascular: Regular rate, Normal S1, Normal S2 Lungs: Clear to auscultation Abdomen: Bowel sounds, Soft Extremities: Edema, no Clubbing, no Cyanosis Neurological: Sensation intact Skin: no Rash Psych/Mental Status: Mood NL - Procedures Procedures: Procedures Procedure Code Date DRAINAGE OF BUTTOCK SUBCU/FASCIA, OPEN APPROACH [id number] 01/17/17 DRAINAGE OF SKIN ABSCESS 44927 01/17/17 PERFORMANCE OF URINARY FILTRATION, MULTIPLE [id number] 01/17/17 Assessment/Plan - Assessment Assessment: Intractable low back pain severe degenerative disc disease Low Back Pain-LS Spine multilevel bulge Ds. 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
[2018-10-01] MEDS: Vitamin B Complex w/Vitamin C Tab PO SCH (09:30)
--- NOTE | 2018-10-01 11:28 | Diagnostic Imaging Report ---
CT scan cervical spine HISTORY: Pain Total DLP equals 621 CTDI equals 27.3 Axial sections were obtained through the cervical spine. Additional sagittal and coronal reformatted images are provided. The C3-4 level demonstrates a normal interspace. No focal bony lesions. No definite extradural abnormalities. The C4-5 level demonstrates a normal disc space. No focal bony lesions. The C5-6 level is unremarkable. The C6-7 level demonstrates narrowing of venous base. Air seen within the interspace reflecting degenerative disc disease. Spur formation noted off the anterior margins of these vertebrae. The neural foramina appear patent bilaterally. The margins of the cervical spinal cord or not clearly delineated. The prevertebral soft tissues appear normal. Atherosclerotic calcification noted through the carotid artery regions. IMPRESSION: 1. Mild to moderate degenerative changes C6-7 2. Rather extensive atherosclerotic vascular changes particularly for the patient's age.
--- NOTE | 2018-10-01 15:52 | Consultation ---
DATE OF CONSULTATION: 09/30/2018 HISTORY OF PRESENT ILLNESS: A 47-year-old male admitted with back pain. He has had back pain on and off. The pain goes down the legs. Otherwise, the patient complains of difficulty with weakness in the legs that have been going on for 3 months, difficulty walking. PAST MEDICAL HISTORY: Hypertension, diabetes, and coronary artery disease. The patient with end-stage renal disease, on hemodialysis. The patient is legally blind. There is a corneal scarring with atrophy of the left globe of the right side, again, no vision. History of coronary artery disease with [place] in the past. AICD, diabetes, glaucoma, depression, hyperlipidemia, and atrial fibrillation. MEDICATIONS: As per reconciliation. REVIEW OF SYSTEMS: Twelve point negative except for above. PHYSICAL EXAMINATION: VITAL SIGNS: Temperature 98.2, blood pressure 130/70, and pulse is 74. NECK: Supple. No neck bruits. HEART: The patient has normal heart sounds. LUNGS: Clear. NEUROLOGIC: The patient is lying in bed. The patient is awake. He will answer questions. Speech is normal. The patient really has no vision. Right pupil is about 3 mm. It seems like they are dense cataracts. I cannot see the retina. Left-side corneal atrophy of the globe with scarring. No cornea seen. The patient's motor, would lift both arms up. He has atrophy of the hand muscles. Lower extremity, I cannot even getting to lift legs off the bed, will lift sort of 1 or 2 inches. Reflexes -1 upper extremity, essentially absent at the knees and ankles. INVESTIGATIONS: The patient had a CT scan of the lumbar spine, which shows multiple disk disease at multiple levels 2-3 mm. No severe spinal stenosis. LABORATORY DATA: WBC 5.3, hemoglobin 9.4, creatinine 9.2, BUN is 57. IMPRESSION: 1. The patient with back pain consistent with lumbar radiculopathy. The patient at this time, I will recommend pain management. 2. The patient with paraplegia. I am going to go ahead and do an MRI of the cervical spine as this has been getting worse in the last few months. Check lab studies. 3. Diabetic neuropathy. 4. Renal failure, end stage, the patient with dialysis. 5. Coronary artery disease. 6. Hypertension. 7. AICD. Therefore, unfortunately cannot do an MRI of the spine. We will do a CT scan. PLAN: CT scan, cervical spine, lab studies. JOB# [id number]
--- NOTE | 2018-10-01 17:14 | General Progress Note ---
Subjective - Review of Systems Service Date: 10/01/18 Subjective: still has intermittent lower back pain Objective - Results Result Diagrams: 09/30/18 15:30 09/30/18 15:30 Recent Labs: Laboratory Last Values WBC 5.3 Th/cmm (4.8-10.8) 09/30/18 15:30 RBC 2.94 Mil/cmm (4.30-5.70) L 09/30/18 15:30 Hgb 9.4 gm/dL (12-16) L 09/30/18 15:30 Hct 29.6 % (41.0-60) L 09/30/18 15:30 MCV 100.6 fl (80-99) H 09/30/18 15:30 MCH 31.9 pg (26.0-30.0) H 09/30/18 15:30 MCHC Differential 31.7 pg (28.0-36.0) 09/30/18 15:30 RDW 16.0 % (11.5-20.0) 09/30/18 15:30 Plt Count 130 Th/cmm (150-400) L 09/30/18 15:30 MPV 8.4 fl 09/30/18 15:30 Neutrophils % 74.0 % (40.0-80.0) 09/30/18 15:30 Lymphocytes % 15.4 % (20.0-50.0) L 09/30/18 15:30 Monocytes % 5.1 % (2.0-10.0) 09/30/18 15:30 Eosinophils % 4.6 % (0.0-5.0) 09/30/18 15:30 Basophils % 0.9 % (0.0-2.0) 09/30/18 15:30 ESR 58 mm/hr (0-20) H 10/01/18 06:00 PT 10.2 SECONDS (9.5-11.5) 10/01/18 06:00 INR 0.98 (0.5-1.4) 10/01/18 06:00 PTT (Actin FS) 29.7 SECONDS (26.0-38.0) 10/01/18 06:00 Sodium 141 mEq/L (136-145) 09/30/18 15:30 Potassium 3.8 mEq/L (3.5-5.1) 09/30/18 15:30 Chloride 101 mEq/L (98-107) 09/30/18 15:30 Carbon Dioxide 25.1 mEq/L (21.0-31.0) 09/30/18 15:30 Anion Gap 18.7 (7.0-16.0) H 09/30/18 15:30 BUN 56 mg/dL (7-25) H 09/30/18 15:30 Creatinine 9.2 mg/dL (0.7-1.3) H* 09/30/18 15:30 Est GFR ( Amer) 7.9 ml/min (>90) 09/30/18 15:30 Est GFR (Non-Af Amer) 6.5 ml/min 09/30/18 15:30 BUN/Creatinine Ratio 6.1 09/30/18 15:30 Glucose 83 mg/dL (70-105) 09/30/18 15:30 Calcium 9.4 mg/dL (8.6-10.3) 09/30/18 15:30 Magnesium 2.1 mg/dL (1.9-2.7) 09/26/18 15:19 Total Bilirubin 0.6 mg/dL (0.3-1.0) 09/27/18 05:40 AST 8 U/L (13-39) L 09/27/18 05:40 ALT < 3 U/L (7-52) L 09/27/18 05:40 Alkaline Phosphatase 57 U/L (34-104) 09/27/18 05:40 C-Reactive Protein 1.8 mg/dL (0.0-0.9) H 10/01/18 06:00 B-Natriuretic Peptide 898.0 pg/mL (5.0-100.0) H 09/27/18 05:40 Total Protein 6.3 gm/dL (6.0-8.3) 09/27/18 05:40 Albumin 3.5 gm/dL (4.2-5.5) L 09/27/18 05:40 Globulin 2.8 gm/dL 09/27/18 05:40 Albumin/Globulin Ratio 1.3 (1.0-1.8) 09/27/18 05:40 TSH 3.95 uIU/ml (0.34-5.60) 10/01/18 06:00 Urine Source CLEAN C 09/27/18 01:46 Urine Color YELLOW 09/27/18 01:46 Urine Clarity CLEAR (CLEAR) 09/27/18 01:46 Urine pH 8.0 (4.6 - 8.0) 09/27/18 01:46 Ur Specific [place] 1.015 (1.005-1.030) 09/27/18 01:46 Urine Protein 100 mg/dL (NEGATIVE) H 09/27/18 01:46 Urine Glucose (UA) NEGATIVE mg/dL (NEGATIVE) 09/27/18 01:46 Urine Ketones TRACE mg/dL (NEGATIVE) 09/27/18 01:46 Urine Blood NEGATIVE (NEGATIVE) 09/27/18 01:46 Urine Nitrate NEGATIVE (NEGATIVE) 09/27/18 01:46 Urine Bilirubin NEGATIVE (NEGATIVE) 09/27/18 01:46 Urine Urobilinogen 0.2 E.U./dL (0.2 - 1.0) 09/27/18 01:46 Ur Leukocyte Esterase NEGATIVE (NEGATIVE) 09/27/18 01:46 Urine RBC 0-2 /hpf (0-5) H 09/27/18 01:46 Urine WBC 0-2 /hpf (0-5) 09/27/18 01:46 Ur Epithelial Cells FEW /lpf (FEW) 09/27/18 01:46 Urine Bacteria FEW /hpf (NONE SEEN) 09/27/18 01:46 - Physical Exam Vitals and I&O: Vital Signs Temp 97.9 F 10/01/18 15:54 Pulse 96 10/01/18 17:11 Resp 18 10/01/18 15:54 BP 125/79 10/01/18 17:11 Pulse Ox 100 10/01/18 15:54 Intake & Output 09/30/18 10/01/18 10/01/18 18:59 06:59 18:59 Intake Total 250 150 Balance 250 150 Weight (lbs) 77.111 kg 77.111 kg Intake: Oral 250 150 Other: # Voids 2 0 # Bowel Movements 0 0 Weight Source Bedscale Bedscale Active Medications: Current Medications Acetaminophen (Tylenol) 650 mg PO Q4H PRN PRN Reason: Pain or Fever >101 Stop: 11/26/18 05:37 Acetaminophen/Hydrocodone Bitart ([place] 5mg/325mg) 1 tab PO Q6H PRN PRN Reason: Pain (Moderate) Stop: 11/25/18 20:41 Last Admin: 09/27/18 22:59 Dose: 1 tab Acetazolamide (Diamox) 250 mg PO BID [facility] Stop: 11/26/18 08:59 Last Admin: 10/01/18 17:09 Dose: 250 mg Allopurinol (Zyloprim) 300 mg PO DAILY [facility] Stop: 11/26/18 08:59 Last Admin: 10/01/18 09:28 Dose: 300 mg Amiodarone HCl (Cordarone) 200 mg PO BID [facility] Stop: 11/26/18 08:59 Last Admin: 10/01/18 17:10 Dose: 200 mg Artificial Tears (Artificial Tears Ophth Soln) 1 drop EACH EYE BID PRN PRN Reason: Dry Eye Stop: 11/26/18 05:37 Last Admin: 09/27/18 21:31 Dose: 1 drop Atorvastatin Calcium (Lipitor) 40 mg PO HS [facility] Stop: 11/26/18 20:59 Last Admin: 09/30/18 21:18 Dose: 40 mg Atropine Sulfate (Isopto Atropine 1% Ophth Soln) 1 drop RIGHT EYE BID [facility] Stop: 11/26/18 08:59 Last Admin: 10/01/18 16:54 Dose: Not Given Benzonatate (Tessalon) 100 mg PO Q6H PRN PRN Reason: Cough Stop: 11/26/18 05:37 Last Admin: 09/27/18 14:42 Dose: 100 mg Brimonidine Tartrate (Alph[place] 0.2% Oph Soln) 1 drop RIGHT EYE TID [facility] Stop: 11/26/18 08:59 Last Admin: 10/01/18 16:54 Dose: Not Given Carvedilol (Coreg) 3.125 mg PO BID [facility] Stop: 11/26/18 08:59 Last Admin: 10/01/18 17:11 Dose: 3.125 mg Cholecalciferol (Vitamin D3) 1,000 iu PO DAILY [facility] Stop: 11/26/18 08:59 Last Admin: 10/01/18 09:31 Dose: 1,000 iu Clopidogrel Bisulfate (Plavix) 75 mg PO DAILY [facility] Stop: 11/26/18 08:59 Last Admin: 10/01/18 09:32 Dose: 75 mg Docusate Sodium (Colace) 100 mg PO TID [facility] Stop: 11/26/18 08:59 Last Admin: 10/01/18 13:37 Dose: 100 mg Dorzolamide/Timolol (Cosopt Oph Soln) 1 drop RIGHT EYE BID [facility] Stop: 11/26/18 08:59 Last Admin: 10/01/18 16:55 Dose: Not Given Famotidine (Pepcid) 20 mg PO QDAC [facility] Stop: 11/26/18 07:29 Last Admin: 10/01/18 06:54 Dose: 20 mg Folic Acid (Folate) 1 mg PO DAILY [facility] Stop: 11/26/18 08:59 Last Admin: 10/01/18 09:29 Dose: 1 mg Gabapentin (Neurontin) 100 mg PO DAILY [facility] Stop: 11/26/18 08:59 Last Admin: 10/01/18 09:30 Dose: 100 mg Heparin Sodium (Porcine) (Heparin) 5,000 units SUBQ Q12H [facility] Stop: 11/26/18 20:59 Last Admin: 10/01/18 09:33 Dose: Not Given Latanoprost (Xalatan 0.005% [facility] Sol) 1 drop RIGHT EYE HS [facility] Stop: 11/26/18 20:59 Last Admin: 09/30/18 21:19 Dose: Not Given Miscellaneous (Ferric Citrate [Auryxia]) 1 tab PO TID [facility] Stop: 11/26/18 08:59 Miscellaneous (Vte Chemical Prophylaxis Screen/ Admission) 1 ea MC PRN PRN PRN Reason: PROTOCOL Stop: 11/26/18 12:56 Miscellaneous (Clinical Monitoring) 1 ea MC DAILY PRN PRN Reason: RENAL DOSING Stop: 11/29/18 16:15 Morphine Sulfate (Morphine) 1 mg IVP Q4HR PRN PRN Reason: Pain (Moderate) Stop: 11/27/18 06:54 Nitroglycerin (Nitrostat) 0.4 mg SL UD [facility] Stop: 11/26/18 08:59 Last Admin: 10/01/18 09:31 Dose: 0.4 mg Sevelamer Carbonate (Renvela) 800 mg PO TIDWM [facility] Stop: 11/26/18 07:59 Last Admin: 10/01/18 17:09 Dose: 800 mg Vitamin B Complex/Vit C/Folic Acid (Vitamin B Complex W/Vitamin C) 1 tab PO DAILY [facility] Stop: 11/26/18 08:59 Last Admin: 10/01/18 09:30 Dose: 1 tab General: Alert, Oriented x3, Mild distress HEENT: Atraumatic, PERRLA, EOMI Neck: Supple, +2 carotid pulse wo bruit Cardiovascular: Regular rate, Normal S1, Normal S2 Lungs: Clear to auscultation Abdomen: Bowel sounds, Soft Extremities: Edema, no Clubbing, no Cyanosis Neurological: Sensation intact Skin: no Rash Psych/Mental Status: Mood NL - Procedures Procedures: Procedures Procedure Code Date DRAINAGE OF BUTTOCK SUBCU/FASCIA, OPEN APPROACH [id number] 01/17/17 DRAINAGE OF SKIN ABSCESS 68147 01/17/17 PERFORMANCE OF URINARY FILTRATION, MULTIPLE [id number] 01/17/17 Assessment/Plan - Assessment Assessment: ESRD on HD Low Back Pain-LS Spine multilevel bulge Ds. 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 Glaucoma CAD Ess Htn T2 DM - Plan Plan: Lab - Result Diagrams 09/27/18 05:40 09/27/18 05:40 Current Medications Acetaminophen (Tylenol) 650 mg PO Q4H PRN PRN Reason: Pain or Fever >101 Stop: 11/26/18 05:37 Acetaminophen/Hydrocodone Bitart ([place] 5mg/325mg) 1 tab PO Q6H PRN PRN Reason: Pain (Moderate) Stop: 11/25/18 20:41 Last Admin: 09/27/18 22:59 Dose: 1 tab Acetazolamide (Diamox) 250 mg PO BID [facility] Stop: 11/26/18 08:59 Last Admin: 09/28/18 09:34 Dose: 250 mg Allopurinol (Zyloprim) 300 mg PO DAILY [facility] Stop: 11/26/18 08:59 Last Admin: 09/28/18 09:26 Dose: 300 mg Amiodarone HCl (Cordarone) 200 mg PO BID [facility] Stop: 11/26/18 08:59 Last Admin: 09/28/18 09:28 Dose: 200 mg Artificial Tears (Artificial Tears Ophth Soln) 1 drop EACH EYE BID PRN PRN Reason: Dry Eye Stop: 11/26/18 05:37 Last Admin: 09/27/18 21:31 Dose: 1 drop Atorvastatin Calcium (Lipitor) 40 mg PO HS [facility] Stop: 11/26/18 20:59 Last Admin: 09/27/18 21:31 Dose: 40 mg Atropine Sulfate (Isopto Atropine 1% [facility]) 1 drop RIGHT EYE BID [facility] Stop: 11/26/18 08:59 Last Admin: 09/28/18 09:31 Dose: Not Given Benzonatate (Tessalon) 100 mg PO Q6H PRN PRN Reason: Cough Stop: 11/26/18 05:37 Last Admin: 09/27/18 14:42 Dose: 100 mg Brimonidine Tartrate (Alphagan 0.2% [facility]) 1 drop RIGHT EYE TID [facility] Stop: 11/26/18 08:59 Last Admin: 09/28/18 09:31 Dose: Not Given Carvedilol (Coreg) 3.125 mg PO BID SARAH Stop: 11/26/18 08:59 Last Admin: 09/28/18 09:25 Dose: 3.125 mg Cholecalciferol (Vitamin D3) 1,000 iu PO DAILY SARAH Stop: 11/26/18 08:59 Last Admin: 09/28/18 09:29 Dose: 1,000 iu Clopidogrel Bisulfate (Plavix) 75 mg PO DAILY SARAH Stop: 11/26/18 08:59 Last Admin: 09/28/18 09:19 Dose: 75 mg Docusate Sodium (Colace) 100 mg PO TID SARAH Stop: 11/26/18 08:59 Last Admin: 09/28/18 09:19 Dose: 100 mg Dorzolamide/Timolol (Cosopt [facility] Soln) 1 drop RIGHT EYE BID SARAH Stop: 11/26/18 08:59 Last Admin: 09/28/18 09:31 Dose: Not Given Famotidine (Pepcid) 20 mg PO QDAC SARAH Stop: 11/26/18 07:29 Last Admin: 09/28/18 09:19 Dose: 20 mg Folic Acid (Folate) 1 mg PO DAILY SARAH Stop: 11/26/18 08:59 Last Admin: 09/28/18 09:19 Dose: 1 mg Gabapentin (Neurontin) 100 mg PO DAILY SARAH Stop: 11/26/18 08:59 Last Admin: 09/28/18 09:18 Dose: 100 mg Heparin Sodium (Porcine) (Heparin) 5,000 units SUBQ Q12H SARAH Stop: 11/26/18 20:59 Last Admin: 09/28/18 09:20 Dose: Not Given Latanoprost (Xalatan 0.005% Ophth Soln) 1 drop RIGHT EYE HS SARAH Stop: 11/26/18 20:59 Last Admin: 09/27/18 21:32 Dose: 1 drop Miscellaneous (Ferric Citrate [Auryxia]) 1 tab PO TID SARAH Stop: 11/26/18 08:59 Miscellaneous (Vte Chemical Prophylaxis Screen/ Admission) 1 ea [facility] PRN PRN PRN Reason: PROTOCOL Stop: 11/26/18 12:56 Morphine Sulfate (Morphine) 1 mg IVP Q4HR PRN PRN Reason: Pain (Moderate) Stop: 11/27/18 06:54 Nitroglycerin (Nitrostat) 0.4 mg SL UD [facility] Stop: 11/26/18 08:59 Last Admin: 09/28/18 10:27 Dose: Not Given Sevelamer Carbonate (Renvela) 800 mg PO TIDWM SARAH Stop: 11/26/18 07:59 Last Admin: 09/28/18 12:03 Dose: Not Given Vitamin B Complex/Vit C/Folic Acid (Vitamin B Complex W/Vitamin C) 1 tab PO DAILY SARAH Stop: 11/26/18 08:59 Last Admin: 09/28/18 09:19 Dose: 1 tab Lab - Result Diagrams 09/30/18 15:30 09/30/18 15:30 scheduled for dialysis in am continue analgesics will eventually require spinal surgeon to eval further workup by Neuro PT to eval
--- NOTE | 2018-10-01 21:37 | Progress Notes ---
DATE: 10/01/2018 SUBJECTIVE: Case was discussed with staff of the patient, reviewed records. The patient reports he is stable. He denies any intent to harm self or anybody. Continues to refuse to be on medication. He reports sleeps well, eats well. He reports he wants to stay alive for his son that was bothering him, the situation with him not being able to see for the last 1-1/2 years. ____. Thank you very much for allowing me to participate in the care of this most interesting gentleman. JOB# [id number]
--- NOTE | 2018-10-02 06:46 | Progress Notes ---
DATE: 10/01/2018 SUBJECTIVE: The patient is in bed. Still has back pain but not as bad. The patient's weakness in legs are as before. No seizures. OBJECTIVE: VITAL SIGNS: 98.3, blood pressure 130/70, pulse is 74. NECK: Supple. NEUROLOGIC: The patient is awake. Blind. Left corneal scarring. Right side no vision. No dizziness. EXTREMITIES: Upper extremity about 4+. Lower extremity 3+. Able to lift them up a little bit more than yesterday. INVESTIGATION: Cervical spine DJD. No definite mention of spinal stenosis. No bony lesions. LABORATORY DATA: TSH 3.95, sed rate 58, CRP 1.8. ASSESSMENT: 1. Back pain. Lumbar radiculopathy. 2. Leg weakness. Physical therapy. No definite cord compression. Cannot do an MRI. The patient has AICD. 3. Diabetic neuropathy. 4. Renal failure, end stage. 5. Hypertension. JOB# [id number]
--- NOTE | 2018-10-02 08:14 | General Progress Note ---
Subjective - Review of Systems Service Date: 10/02/18 Subjective: Patient is awake, alert. still having low back pain but improving. dialysis per nephrology. h/o depression. was seen by psychiatrist. non-complaint with his meds. Objective - Results Result Diagrams: 09/30/18 15:30 09/30/18 15:30 Recent Labs: Laboratory Last Values WBC 5.3 Th/cmm (4.8-10.8) 09/30/18 15:30 RBC 2.94 Mil/cmm (4.30-5.70) L 09/30/18 15:30 Hgb 9.4 gm/dL (12-16) L 09/30/18 15:30 Hct 29.6 % (41.0-60) L 09/30/18 15:30 MCV 100.6 fl (80-99) H 09/30/18 15:30 MCH 31.9 pg (26.0-30.0) H 09/30/18 15:30 MCHC Differential 31.7 pg (28.0-36.0) 09/30/18 15:30 RDW 16.0 % (11.5-20.0) 09/30/18 15:30 Plt Count 130 Th/cmm (150-400) L 09/30/18 15:30 MPV 8.4 fl 09/30/18 15:30 Neutrophils % 74.0 % (40.0-80.0) 09/30/18 15:30 Lymphocytes % 15.4 % (20.0-50.0) L 09/30/18 15:30 Monocytes % 5.1 % (2.0-10.0) 09/30/18 15:30 Eosinophils % 4.6 % (0.0-5.0) 09/30/18 15:30 Basophils % 0.9 % (0.0-2.0) 09/30/18 15:30 ESR 58 mm/hr (0-20) H 10/01/18 06:00 PT 10.2 SECONDS (9.5-11.5) 10/01/18 06:00 INR 0.98 (0.5-1.4) 10/01/18 06:00 PTT (Actin FS) 29.7 SECONDS (26.0-38.0) 10/01/18 06:00 Sodium 141 mEq/L (136-145) 09/30/18 15:30 Potassium 3.8 mEq/L (3.5-5.1) 09/30/18 15:30 Chloride 101 mEq/L (98-107) 09/30/18 15:30 Carbon Dioxide 25.1 mEq/L (21.0-31.0) 09/30/18 15:30 Anion Gap 18.7 (7.0-16.0) H 09/30/18 15:30 BUN 56 mg/dL (7-25) H 09/30/18 15:30 Creatinine 9.2 mg/dL (0.7-1.3) H* 09/30/18 15:30 Est GFR ( Amer) 7.9 ml/min (>90) 09/30/18 15:30 Est GFR (Non-Af Amer) 6.5 ml/min 09/30/18 15:30 BUN/Creatinine Ratio 6.1 09/30/18 15:30 Glucose 83 mg/dL (70-105) 09/30/18 15:30 Calcium 9.4 mg/dL (8.6-10.3) 09/30/18 15:30 Magnesium 2.1 mg/dL (1.9-2.7) 09/26/18 15:19 Total Bilirubin 0.6 mg/dL (0.3-1.0) 09/27/18 05:40 AST 8 U/L (13-39) L 09/27/18 05:40 ALT < 3 U/L (7-52) L 09/27/18 05:40 Alkaline Phosphatase 57 U/L (34-104) 09/27/18 05:40 C-Reactive Protein 1.8 mg/dL (0.0-0.9) H 10/01/18 06:00 B-Natriuretic Peptide 898.0 pg/mL (5.0-100.0) H 09/27/18 05:40 Total Protein 6.3 gm/dL (6.0-8.3) 09/27/18 05:40 Albumin 3.5 gm/dL (4.2-5.5) L 09/27/18 05:40 Globulin 2.8 gm/dL 09/27/18 05:40 Albumin/Globulin Ratio 1.3 (1.0-1.8) 09/27/18 05:40 TSH 3.95 uIU/ml (0.34-5.60) 10/01/18 06:00 Urine Source CLEAN C 09/27/18 01:46 Urine Color YELLOW 09/27/18 01:46 Urine Clarity CLEAR (CLEAR) 09/27/18 01:46 Urine pH 8.0 (4.6 - 8.0) 09/27/18 01:46 Ur Specific [place] 1.015 (1.005-1.030) 09/27/18 01:46 Urine Protein 100 mg/dL (NEGATIVE) H 09/27/18 01:46 Urine Glucose (UA) NEGATIVE mg/dL (NEGATIVE) 09/27/18 01:46 Urine Ketones TRACE mg/dL (NEGATIVE) 09/27/18 01:46 Urine Blood NEGATIVE (NEGATIVE) 09/27/18 01:46 Urine Nitrate NEGATIVE (NEGATIVE) 09/27/18 01:46 Urine Bilirubin NEGATIVE (NEGATIVE) 09/27/18 01:46 Urine Urobilinogen 0.2 E.U./dL (0.2 - 1.0) 09/27/18 01:46 Ur Leukocyte Esterase NEGATIVE (NEGATIVE) 09/27/18 01:46 Urine RBC 0-2 /hpf (0-5) H 09/27/18 01:46 Urine WBC 0-2 /hpf (0-5) 09/27/18 01:46 Ur Epithelial Cells FEW /lpf (FEW) 09/27/18 01:46 Urine Bacteria FEW /hpf (NONE SEEN) 09/27/18 01:46 - Physical Exam Vitals and I&O: Vital Signs Temp 97.6 F 10/02/18 07:32 Pulse 95 10/02/18 07:32 Resp 18 10/02/18 07:32 BP 114/63 10/02/18 07:32 Pulse Ox 97 10/02/18 07:32 Intake & Output 10/01/18 10/02/18 10/02/18 18:59 06:59 18:59 Intake Total 120 Output Total 250 Balance -130 Weight (lbs) 77.111 kg Intake: Oral 120 Output: Urine 250 Other: Weight Source Bedscale Active Medications: Current Medications Acetaminophen (Tylenol) 650 mg PO Q4H PRN PRN Reason: Pain or Fever >101 Stop: 11/26/18 05:37 Acetaminophen/Hydrocodone Bitart ([place] 5mg/325mg) 1 tab PO Q6H PRN PRN Reason: Pain (Moderate) Stop: 11/25/18 20:41 Last Admin: 09/27/18 22:59 Dose: 1 tab Acetazolamide (Diamox) 250 mg PO BID [facility] Stop: 11/26/18 08:59 Last Admin: 10/01/18 17:09 Dose: 250 mg Allopurinol (Zyloprim) 300 mg PO DAILY [facility] Stop: 11/26/18 08:59 Last Admin: 10/01/18 09:28 Dose: 300 mg Amiodarone HCl (Cordarone) 200 mg PO BID [facility] Stop: 11/26/18 08:59 Last Admin: 10/01/18 17:10 Dose: 200 mg Artificial Tears (Artificial Tears Ophth Soln) 1 drop EACH EYE BID PRN PRN Reason: Dry Eye Stop: 11/26/18 05:37 Last Admin: 09/27/18 21:31 Dose: 1 drop Atorvastatin Calcium (Lipitor) 40 mg PO HS [facility] Stop: 11/26/18 20:59 Last Admin: 10/01/18 20:54 Dose: 40 mg Atropine Sulfate (Isopto Atropine 1% Ophth Soln) 1 drop RIGHT EYE BID [facility] Stop: 11/26/18 08:59 Last Admin: 10/01/18 16:54 Dose: Not Given Benzonatate (Tessalon) 100 mg PO Q6H PRN PRN Reason: Cough Stop: 11/26/18 05:37 Last Admin: 09/27/18 14:42 Dose: 100 mg Brimonidine Tartrate (Alphagan 0.2% Ophth Soln) 1 drop RIGHT EYE TID [facility] Stop: 11/26/18 08:59 Last Admin: 10/02/18 01:20 Dose: Not Given Carvedilol (Coreg) 3.125 mg PO BID [facility] Stop: 11/26/18 08:59 Last Admin: 10/01/18 17:11 Dose: 3.125 mg Cholecalciferol (Vitamin D3) 1,000 iu PO DAILY [facility] Stop: 11/26/18 08:59 Last Admin: 10/01/18 09:31 Dose: 1,000 iu Clopidogrel Bisulfate (Plavix) 75 mg PO DAILY [facility] Stop: 11/26/18 08:59 Last Admin: 10/01/18 09:32 Dose: 75 mg Docusate Sodium (Colace) 100 mg PO TID [facility] Stop: 11/26/18 08:59 Last Admin: 10/01/18 20:53 Dose: 100 mg Dorzolamide/Timolol (Cosopt Ophth Soln) 1 drop RIGHT EYE BID [facility] Stop: 11/26/18 08:59 Last Admin: 10/01/18 16:55 Dose: Not Given Famotidine (Pepcid) 20 mg PO QDAC [facility] Stop: 11/26/18 07:29 Last Admin: 10/02/18 06:41 Dose: 20 mg Folic Acid (Folate) 1 mg PO DAILY [facility] Stop: 11/26/18 08:59 Last Admin: 10/01/18 09:29 Dose: 1 mg Gabapentin (Neurontin) 100 mg PO DAILY [facility] Stop: 11/26/18 08:59 Last Admin: 10/01/18 09:30 Dose: 100 mg Heparin Sodium (Porcine) (Heparin) 5,000 units SUBQ Q12H [facility] Stop: 11/26/18 20:59 Last Admin: 10/01/18 20:57 Dose: Not Given Latanoprost (Xalatan 0.005% Oph Soln) 1 drop RIGHT EYE HS [facility] Stop: 11/26/18 20:59 Last Admin: 10/02/18 01:20 Dose: Not Given Miscellaneous (Ferric Citrate [Auryxia]) 1 tab PO TID [facility] Stop: 11/26/18 08:59 Miscellaneous (Vte Chemical Prophylaxis Screen/ Admission) 1 ea PRN PRN PRN Reason: PROTOCOL Stop: 11/26/18 12:56 Miscellaneous (Clinical Monitoring) 1 ea MC DAILY PRN PRN Reason: RENAL DOSING Stop: 11/29/18 16:15 Morphine Sulfate (Morphine) 1 mg IVP Q4HR PRN PRN Reason: Pain (Moderate) Stop: 11/27/18 06:54 Nitroglycerin (Nitrostat) 0.4 mg SL UD [facility] Stop: 11/26/18 08:59 Last Admin: 10/01/18 09:31 Dose: 0.4 mg Sevelamer Carbonate (Renvela) 800 mg PO TIDWM [facility] Stop: 11/26/18 07:59 Last Admin: 10/01/18 17:09 Dose: 800 mg Vitamin B Complex/Vit C/Folic Acid (Vitamin B Complex W/Vitamin C) 1 tab PO DAILY [facility] Stop: 11/26/18 08:59 Last Admin: 10/01/18 09:30 Dose: 1 tab General: Alert, Oriented x3, Mild distress HEENT: Atraumatic, PERRLA, EOMI Neck: Supple, +2 carotid pulse wo bruit Cardiovascular: Regular rate, Normal S1, Normal S2 Lungs: Clear to auscultation Abdomen: Bowel sounds, Soft Extremities: Edema, no Clubbing, no Cyanosis Neurological: Sensation intact Skin: no Rash Psych/Mental Status: Mood NL - Procedures Procedures: Procedures Procedure Code Date DRAINAGE OF BUTTOCK SUBCU/FASCIA, OPEN APPROACH [id number] 01/17/17 DRAINAGE OF SKIN ABSCESS 98897 01/17/17 PERFORMANCE OF URINARY FILTRATION, MULTIPLE [id number] 01/17/17 Assessment/Plan - Assessment Assessment: Intractable low back pain severe degenerative disc disease Low Back Pain-LS Spine multilevel bulge Ds. 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
--- NOTE | 2018-10-02 08:45 | Diagnostic Imaging Report ---
CHEST X-RAY: AP view INDICATION: CVA COMPARISON: 08/20/2018 FINDINGS: Left chest wall AICD is stable. There is no focal consolidation or pleural effusions there is mild cardiomegaly. Atherosclerosis is noted. Suboptimal lung volumes are noted. IMPRESSION: No focal consolidation or evidence of CHF Cardiomegaly and atherosclerotic vascular disease. Stable left chest wall AICD.
[2018-10-02 10:20] LABS: CALCIUM SERUM 9.1 mg/dL (8.6-10.3); CARBON DIOXIDE 28.2 mEq/L (21.0-31.0); GFR AFRICAN-AMERICAN 11.6 ml/min (>90); GFR NON AFRICAN-AMERICAN 9.6 ml/min; POTASSIUM SERUM 3.2 mEq/L (3.5-5.1)
[2018-10-02 10:43] LABS: CREATININE - SERUM 6.6 mg/dL (0.7-1.3)
[2018-10-02 10:47] LABS: % BASOPHILS 0.1 % (0.0-2.0); % EOSINOPHILS 4.4 % (0.0-5.0); % LYMPHOCYTES 13.1 % (20.0-50.0); % MONOCYTES 4.7 % (2.0-10.0); % NEUTROPHILS 77.7 % (40.0-80.0); EOSINOPHILE ABSOLUTE 0.3 Th/cmm (0.1-0.4); HEMATOCRIT 29.6 % (41.0-60); HEMOGLOBIN 9.4 gm/dL (12-16); LYMPHOCYTE ABSOLUTE 0.8 Th/cmm (1.5-3.0); MEAN CORPUSCULAR HEMOGLOBIN 31.9 pg (26.0-30.0); MEAN CORPUSCULAR HGB CONC 31.8 pg (28.0-36.0); MEAN PLATELET VOLUME 9.3 fl; MONOCYTE ABSOLUTE 0.3 Th/cmm (0.3-1.0); NEUTROPHILE ABSOLUTE 4.9 Th/cmm (1.8-8.0); PLATELET COUNT 126 Th/cmm (150-400); RED BLOOD COUNT 2.96 Mil/cmm (4.30-5.70); RED CELL DISTRIBUTION WIDTH 15.3 % (11.5-20.0); WHITE BLOOD COUNT 6.3 Th/cmm (4.8-10.8)
[2018-10-02 11:14] LABS: FOLIC ACID >20.0 ng/mL (>3.0)
--- NOTE | 2018-10-02 13:32 | Progress Notes ---
DATE: 10/02/2018 Case was discussed with staff of the patient, reviewed records. The patient continues to be generally in good mood, although he is depressed, but his depression is not to the point where he wants to harm himself. He is sleeping well, eating well, compliant with the medication. He is blind and that is the reason for his depression, but he reports he does have a son and would never harm himself and he said that he was tried on many medications that caused him to be dizzy and is not interested in taking anything. Thank you very much for allowing me to participate in the care of this most interesting gentleman. JOB# [id number]
[2018-10-02] MEDS ORDERED: Potassium Chloride 20 mEq ER Tab PO ONE (13:59)
--- NOTE | 2018-10-02 13:59 | General Progress Note ---
Subjective - Review of Systems Service Date: 10/02/18 Subjective: still has intermittent lower back pain Objective - Results Result Diagrams: 10/02/18 09:30 10/02/18 09:30 Recent Labs: Laboratory Last Values WBC 6.3 Th/cmm (4.8-10.8) 10/02/18 09:30 RBC 2.96 Mil/cmm (4.30-5.70) L 10/02/18:30 Hgb 9.4 gm/dL (12-16) L 10/02/18:30 Hct 29.6 % (41.0-60) L 10/02/18:30 MCV 100.0 fl (80-99) H 10/02/18:30 MCH 31.9 pg (26.0-30.0) H 10/02/18: MCHC Differential 31.8 pg (28.0-36.0) 10/02/18: RDW 15.3 % (11.5-20.0) 10/02/18: Plt Count 126 Th/cmm (150-400) L 10/02/18 09:30 MPV 9.3 fl 10/02/18:30 Neutrophils % 77.7 % (40.0-80.0) 10/02/18:30 Lymphocytes % 13.1 % (20.0-50.0) L 10/02/18 09:30 Monocytes % 4.7 % (2.0-10.0) 10/02/18: Eosinophils % 4.4 % (0.0-5.0) 10/02/18:30 Basophils % 0.1 % (0.0-2.0) 10/02/18 09:30 ESR 58 mm/hr (0-20) H 10/01/18 06:00 PT 10.2 SECONDS (9.5-11.5) 10/01/18 06:00 INR 0.98 (0.5-1.4) 10/01/18 06:00 PTT (Actin FS) 29.7 SECONDS (26.0-38.0) 10/01/18 06:00 Sodium 140 mEq/L (136-145) 10/02/18 09:30 Potassium 3.2 mEq/L (3.5-5.1) L 10/02/18 09:30 Chloride 101 mEq/L (98-107) 10/02/18 09:30 Carbon Dioxide 28.2 mEq/L (21.0-31.0) 10/02/18 09:30 Anion Gap 14.0 (7.0-16.0) 10/02/18 09:30 BUN 30 mg/dL (7-25) H 10/02/18 09:30 Creatinine 6.6 mg/dL (0.7-1.3) H* 10/02/18 09:30 Est GFR ( Amer) 11.6 ml/min (>90) 10/02/18 09:30 Est GFR (Non-Af Amer) 9.6 ml/min 10/02/18 09:30 BUN/Creatinine Ratio 4.5 10/02/18 09:30 Glucose 144 mg/dL (70-105) H 10/02/18 09:30 Calcium 9.1 mg/dL (8.6-10.3) 10/02/18 09:30 Magnesium 2.1 mg/dL (1.9-2.7) 09/26/18 15:19 Total Bilirubin 0.6 mg/dL (0.3-1.0) 09/27/18 05:40 AST 8 U/L (13-39) L 09/27/18 05:40 ALT < 3 U/L (7-52) L 09/27/18 05:40 Alkaline Phosphatase 57 U/L (34-104) 09/27/18 05:40 C-Reactive Protein 1.8 mg/dL (0.0-0.9) H 10/01/18 06:00 B-Natriuretic Peptide 898.0 pg/mL (5.0-100.0) H 09/27/18 05:40 Total Protein 6.3 gm/dL (6.0-8.3) 09/27/18 05:40 Albumin 3.5 gm/dL (4.2-5.5) L 09/27/18 05:40 Globulin 2.8 gm/dL 09/27/18 05:40 Albumin/Globulin Ratio 1.3 (1.0-1.8) 09/27/18 05:40 Vitamin B12 722 pg/mL (232-1245) 10/01/18 06:00 Folic Acid >20.0 ng/mL (>3.0) 10/01/18 06:00 TSH 3.95 uIU/ml (0.34-5.60) 10/01/18 06:00 Urine Source CLEAN C 09/27/18 01:46 Urine Color YELLOW 09/27/18 01:46 Urine Clarity CLEAR (CLEAR) 09/27/18 01:46 Urine pH 8.0 (4.6 - 8.0) 09/27/18 01:46 Ur Specific [place] 1.015 (1.005-1.030) 09/27/18 01:46 Urine Protein 100 mg/dL (NEGATIVE) H 09/27/18 01:46 Urine Glucose (UA) NEGATIVE mg/dL (NEGATIVE) 09/27/18 01:46 Urine Ketones TRACE mg/dL (NEGATIVE) 09/27/18 01:46 Urine Blood NEGATIVE (NEGATIVE) 09/27/18 01:46 Urine Nitrate NEGATIVE (NEGATIVE) 09/27/18 01:46 Urine Bilirubin NEGATIVE (NEGATIVE) 09/27/18 01:46 Urine Urobilinogen 0.2 E.U./dL (0.2 - 1.0) 09/27/18 01:46 Ur Leukocyte Esterase NEGATIVE (NEGATIVE) 09/27/18 01:46 Urine RBC 0-2 /hpf (0-5) H 09/27/18 01:46 Urine WBC 0-2 /hpf (0-5) 09/27/18 01:46 Ur Epithelial Cells FEW /lpf (FEW) 09/27/18 01:46 Urine Bacteria FEW /hpf (NONE SEEN) 09/27/18 01:46 - Physical Exam Vitals and I&O: Vital Signs Temp 97.3 F 10/02/18 11:45 Pulse 100 10/02/18 11:45 Resp 18 10/02/18 11:45 BP 102/61 10/02/18 11:45 Pulse Ox 96 10/02/18 11:45 Intake & Output 10/01/18 10/02/18 10/02/18 18:59 06:59 18:59 Intake Total 120 Output Total 250 Balance -130 Weight (lbs) 77.111 kg Intake: Oral 120 Output: Urine 250 Other: Weight Source Bedscale Active Medications: Current Medications Acetaminophen (Tylenol) 650 mg PO Q4H PRN PRN Reason: Pain or Fever >101 Stop: 11/26/18 05:37 Acetaminophen/Hydrocodone Bitart ([place] 5mg/325mg) 1 tab PO Q6H PRN PRN Reason: Pain (Moderate) Stop: 11/25/18 20:41 Last Admin: 09/27/18 22:59 Dose: 1 tab Acetazolamide (Diamox) 250 mg PO BID [facility] Stop: 11/26/18 08:59 Last Admin: 10/02/18 09:00 Dose: Not Given Allopurinol (Zyloprim) 300 mg PO DAILY [facility] Stop: 11/26/18 08:59 Last Admin: 10/01/18 09:28 Dose: 300 mg Amiodarone HCl (Cordarone) 200 mg PO BID [facility] Stop: 11/26/18 08:59 Last Admin: 10/02/18 09:01 Dose: Not Given Artificial Tears (Artificial Tears Ophth Soln) 1 drop EACH EYE BID PRN PRN Reason: Dry Eye Stop: 11/26/18 05:37 Last Admin: 09/27/18 21:31 Dose: 1 drop Atorvastatin Calcium (Lipitor) 40 mg PO HS [facility] Stop: 11/26/18 20:59 Last Admin: 10/01/18 20:54 Dose: 40 mg Atropine Sulfate (Isopto Atropine 1% Oph Soln) 1 drop RIGHT EYE BID [facility] Stop: 11/26/18 08:59 Last Admin: 10/02/18 09:16 Dose: Not Given Benzonatate (Tessalon) 100 mg PO Q6H PRN PRN Reason: Cough Stop: 11/26/18 05:37 Last Admin: 09/27/18 14:42 Dose: 100 mg Brimonidine Tartrate (Alph[place] 0.2% Oph Soln) 1 drop RIGHT EYE TID [facility] Stop: 11/26/18 08:59 Last Admin: 10/02/18 09:16 Dose: Not Given Carvedilol (Coreg) 3.125 mg PO BID [facility] Stop: 11/26/18 08:59 Last Admin: 10/02/18 09:01 Dose: Not Given Cholecalciferol (Vitamin D3) 1,000 iu PO DAILY [facility] Stop: 11/26/18 08:59 Last Admin: 10/02/18 09:01 Dose: Not Given Clopidogrel Bisulfate (Plavix) 75 mg PO DAILY [facility] Stop: 11/26/18 08:59 Last Admin: 10/01/18 09:32 Dose: 75 mg Docusate Sodium (Colace) 100 mg PO TID [facility] Stop: 11/26/18 08:59 Last Admin: 10/02/18 09:04 Dose: Not Given Dorzolamide/Timolol (Cosopt Ophth Soln) 1 drop RIGHT EYE BID [facility] Stop: 11/26/18 08:59 Last Admin: 10/02/18 09:16 Dose: Not Given Famotidine (Pepcid) 20 mg PO QDAC [facility] Stop: 11/26/18 07:29 Last Admin: 10/02/18 06:41 Dose: 20 mg Folic Acid (Folate) 1 mg PO DAILY [facility] Stop: 11/26/18 08:59 Last Admin: 10/01/18 09:29 Dose: 1 mg Gabapentin (Neurontin) 100 mg PO DAILY [facility] Stop: 11/26/18 08:59 Last Admin: 10/01/18 09:30 Dose: 100 mg Heparin Sodium (Porcine) (Heparin) 5,000 units SUBQ Q12H [facility] Stop: 11/26/18 20:59 Last Admin: 10/02/18 09:06 Dose: Not Given Latanoprost (Xalatan 0.005% Oph Sol) 1 drop RIGHT EYE HS [facility] Stop: 11/26/18 20:59 Last Admin: 10/02/18 01:20 Dose: Not Given Miscellaneous (Ferric Citrate [Auryxia]) 1 tab PO TID [facility] Stop: 11/26/18 08:59 Miscellaneous (Vte Chemical Prophylaxis Screen/ Admission) 1 ea MC PRN PRN PRN Reason: PROTOCOL Stop: 11/26/18 12:56 Miscellaneous (Clinical Monitoring) 1 ea MC DAILY PRN PRN Reason: RENAL DOSING Stop: 11/29/18 16:15 Miscellaneous (Clinical Monitoring) 1 ea MC DAILY PRN PRN Reason: RENAL DOSING Stop: 12/01/18 10:48 Morphine Sulfate (Morphine) 1 mg IVP Q4HR PRN PRN Reason: Pain (Moderate) Stop: 11/27/18 06:54 Nitroglycerin (Nitrostat) 0.4 mg SL UD [facility] Stop: 11/26/18 08:59 Last Admin: 10/02/18 09:06 Dose: Not Given Sevelamer Carbonate (Renvela) 800 mg PO TIDWM [facility] Stop: 11/26/18 07:59 Last Admin: 10/02/18 08:59 Dose: Not Given Vitamin B Complex/Vit C/Folic Acid (Vitamin B Complex W/Vitamin C) 1 tab PO DAILY [facility] Stop: 11/26/18 08:59 Last Admin: 10/01/18 09:30 Dose: 1 tab General: Alert, Oriented x3, Mild distress HEENT: Atraumatic, PERRLA, EOMI Neck: Supple, +2 carotid pulse wo bruit Cardiovascular: Regular rate, Normal S1, Normal S2 Lungs: Clear to auscultation Abdomen: Bowel sounds, Soft Extremities: Edema, no Clubbing, no Cyanosis Neurological: Sensation intact Skin: no Rash Psych/Mental Status: Mood NL - Procedures Procedures: Procedures Procedure Code Date DRAINAGE OF BUTTOCK SUBCU/FASCIA, OPEN APPROACH [id number] 01/17/17 DRAINAGE OF SKIN ABSCESS 83855 01/17/17 PERFORMANCE OF URINARY FILTRATION, MULTIPLE [id number] 01/17/17 Assessment/Plan - Assessment Assessment: ESRD on HD Low Back Pain-LS Spine multilevel bulge Ds. 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 Glaucoma CAD Ess Htn T2 DM - Plan Plan: Lab - Result Diagrams 09/27/18 05:40 09/27/18 05:40 Current Medications Acetaminophen (Tylenol) 650 mg PO Q4H PRN PRN Reason: Pain or Fever >101 Stop: 11/26/18 05:37 Acetaminophen/Hydrocodone Bitart ([place] 5mg/325mg) 1 tab PO Q6H PRN PRN Reason: Pain (Moderate) Stop: 11/25/18 20:41 Last Admin: 09/27/18 22:59 Dose: 1 tab Acetazolamide (Diamox) 250 mg PO BID [facility] Stop: 11/26/18 08:59 Last Admin: 09/28/18 09:34 Dose: 250 mg Allopurinol (Zyloprim) 300 mg PO DAILY [facility] Stop: 11/26/18 08:59 Last Admin: 09/28/18 09:26 Dose: 300 mg Amiodarone HCl (Cordarone) 200 mg PO BID [facility] Stop: 11/26/18 08:59 Last Admin: 09/28/18 09:28 Dose: 200 mg Artificial Tears (Artificial Tears Oph Soln) 1 drop EACH EYE BID PRN PRN Reason: Dry Eye Stop: 11/26/18 05:37 Last Admin: 09/27/18 21:31 Dose: 1 drop Atorvastatin Calcium (Lipitor) 40 mg PO HS [facility] Stop: 11/26/18 20:59 Last Admin: 09/27/18 21:31 Dose: 40 mg Atropine Sulfate (Isopto Atropine 1% [facility] Soln) 1 drop RIGHT EYE BID [facility] Stop: 11/26/18 08:59 Last Admin: 09/28/18 09:31 Dose: Not Given Benzonatate (Tessalon) 100 mg PO Q6H PRN PRN Reason: Cough Stop: 11/26/18 05:37 Last Admin: 09/27/18 14:42 Dose: 100 mg Brimonidine Tartrate (Alphagan 0.2% [facility] Sol) 1 drop RIGHT EYE TID [facility] Stop: 11/26/18 08:59 Last Admin: 09/28/18 09:31 Dose: Not Given Carvedilol (Coreg) 3.125 mg PO BID [facility] Stop: 11/26/18 08:59 Last Admin: 09/28/18 09:25 Dose: 3.125 mg Cholecalciferol (Vitamin D3) 1,000 iu PO DAILY [facility] Stop: 11/26/18 08:59 Last Admin: 09/28/18 09:29 Dose: 1,000 iu Clopidogrel Bisulfate (Plavix) 75 mg PO DAILY [facility] Stop: 11/26/18 08:59 Last Admin: 09/28/18 09:19 Dose: 75 mg Docusate Sodium (Colace) 100 mg PO TID [facility] Stop: 11/26/18 08:59 Last Admin: 09/28/18 09:19 Dose: 100 mg Dorzolamide/Timolol (Cosopt [facility] Soln) 1 drop RIGHT EYE BID SARAH Stop: 11/26/18 08:59 Last Admin: 09/28/18 09:31 Dose: Not Given Famotidine (Pepcid) 20 mg PO QDAC SARAH Stop: 11/26/18 07:29 Last Admin: 09/28/18 09:19 Dose: 20 mg Folic Acid (Folate) 1 mg PO DAILY SARAH Stop: 11/26/18 08:59 Last Admin: 01/05/19 09:19 Dose: 1 mg Gabapentin (Neurontin) 100 mg PO DAILY [facility] Stop: 11/26/18 08:59 Last Admin: 09/28/18 09:18 Dose: 100 mg Heparin Sodium (Porcine) (Heparin) 5,000 units SUBQ Q12H SARAH Stop: 11/26/18 20:59 Last Admin: 09/28/18 09:20 Dose: Not Given Latanoprost (Xalatan 0.005% Ophth Soln) 1 drop RIGHT EYE HS SARAH Stop: 11/26/18 20:59 Last Admin: 09/27/18 21:32 Dose: 1 drop Miscellaneous (Ferric Citrate [Auryxia]) 1 tab PO TID [facility] Stop: 11/26/18 08:59 Miscellaneous (Vte Chemical Prophylaxis Screen/ Admission) 1 ea MC PRN PRN PRN Reason: PROTOCOL Stop: 11/26/18 12:56 Morphine Sulfate (Morphine) 1 mg IVP Q4HR PRN PRN Reason: Pain (Moderate) Stop: 11/27/18 06:54 Nitroglycerin (Nitrostat) 0.4 mg SL UD SARAH Stop: 11/26/18 08:59 Last Admin: 09/28/18 10:27 Dose: Not Given Sevelamer Carbonate (Renvela) 800 mg PO TIDWM SARAH Stop: 11/26/18 07:59 Last Admin: 09/28/18 12:03 Dose: Not Given Vitamin B Complex/Vit C/Folic Acid (Vitamin B Complex W/Vitamin C) 1 tab PO DAILY SARAH Stop: 11/26/18 08:59 Last Admin: 09/28/18 09:19 Dose: 1 tab Lab - Result Diagrams 10/02/18 09:30 10/02/18 09:30 scheduled for dialysis today continue analgesics will eventually require spinal surgeon to eval further workup by Neuro PT to eval replace K
[2018-10-02] MEDS: Vitamin B Complex w/Vitamin C Tab PO SCH (14:39)
[2018-10-03 09:26] LABS: ALDOLASE 3.6 U/L (3.3-10.3); T4 FREE 1.53 ng/dL (0.82-1.77)
--- NOTE | 2018-10-04 17:46 | Discharge Summary ---
DATE OF DISCHARGE: 10/02/2018 PRELIMINARY DIAGNOSES: 1. Intractable low back pain. 2. Hypertension. 3. Diabetes mellitus. 4. Coronary artery disease. 5. End-stage renal disease, on hemodialysis. 6. Gastroesophageal reflux disease. 7. Legally blind. 8. History of myocardial infarction. 9. Status post automatic implantable cardioverter-defibrillator. 10. Type 2 diabetes. 11. Glaucoma. 12. Gout. 13. Major depressive disorder. 14. Hyperlipidemia 15. Atrial fibrillation. DISCHARGE DIAGNOSES: 1. Intractable low back pain. 2. Hypertension. 3. Diabetes mellitus. 4. Coronary artery disease. 5. End-stage renal disease, on hemodialysis. 6. Gastroesophageal reflux disease. 7. Legally blind. 8. History of myocardial infarction. 9. Status post automatic implantable cardioverter-defibrillator. 10. Type 2 diabetes. 11. Glaucoma. 12. Gout. 13. Major depressive disorder. 14. Hyperlipidemia 15. Atrial fibrillation. HISTORY OF PRESENT ILLNESS: This is a 47-year-old male who presents to [facility] ER for low back pain for the past 6 days. The patient is a resident of a residential facility and states that he has been offered Tylenol for his back pain without relief. The patient has a history of hypertension; diabetes; coronary artery disease; end-stage renal disease, on hemodialysis; gastroesophageal reflux disease; legally blind; history of MA, status post AICD; type 2 diabetes; glaucoma; gout; major depressive disorder; hyperlipidemia and atrial fibrillation. The patient is unhappy with his current place of residence and stated he would like to be transferred elsewhere. The patient was subsequently admitted for further evaluation and treatment. INITIAL LAB WORK: Shows a white count of 4.9, hemoglobin 9.2, hematocrit of 29.2 and platelets 142,000. Sodium was 144, potassium 3.5, chloride 100, bicarbonate 33.5, BUN 43, creatinine 8.1 and glucose was 89. UA was essentially normal. HOSPITAL COURSE: The patient was seen and evaluated by Nephrology, see dictated report. The patient underwent a CT of his lumbar spine, which revealed evidence of a broad-based disk bulge at L1-L2, L2-L3, L3-L4 as well as L4-L5. The patient showed some [id number] neural foraminal narrowing at several lumbar levels with severe multilevel degenerative changes of the spine along with spinal scoliosis. We were unable to order MRI due to his history of AICD. The patient, however, was seen and evaluated by Dr. Arredondo from Neurology. Please see dictated report. The patient also was seen by Psychiatry due to his history of major depression; please see dictated report. The patient was placed on oral hydrocodone during his hospital stay, which seemed to help control his pain. The patient was subsequently discharged in stable condition, was transferred to a residential facility and to continue his current medications. JOB# [id number]
== END 2018-10-02 16:10 | DRG 551 ==
LOC: ER 14:22 → MSI 17:34
PROVIDERS: ADMIT Family Medicine; ATTEND Family Medicine
PROC: 5A1D70Z Performance of Urinary Filtration, Intermittent, Less than 6 Hours Per Day (ICD-10-PCS; principal; 2018-09-28)
PROC: 5A1D70Z Performance of Urinary Filtration, Intermittent, Less than 6 Hours Per Day (ICD-10-PCS; 2018-09-30)
PROC: 5A1D70Z Performance of Urinary Filtration, Intermittent, Less than 6 Hours Per Day (ICD-10-PCS; 2018-10-02)
DX: M51.36 Other intervertebral disc degeneration, lumbar region (principal); N18.6 End stage renal disease; I12.0 Hypertensive chronic kidney disease with stage 5 chronic kidney disease or end stage renal disease; F32.1 Major depressive disorder, single episode, moderate; G82.20 Paraplegia, unspecified; M47.26 Other spondylosis with radiculopathy, lumbar region; M51.16 Intervertebral disc disorders with radiculopathy, lumbar region; I25.10 Atherosclerotic heart disease of native coronary artery without angina pectoris; Z99.2 Dependence on renal dialysis; K21.9 Gastro-esophageal reflux disease without esophagitis; E78.5 Hyperlipidemia, unspecified; Z66 Do not resuscitate; M10.9 Gout, unspecified; E11.22 Type 2 diabetes mellitus with diabetic chronic kidney disease; H54.8 Legal blindness, as defined in USA; I25.2 Old myocardial infarction; H40.9 Unspecified glaucoma; M41.9 Scoliosis, unspecified; I48.0 Paroxysmal atrial fibrillation; D53.1 Other megaloblastic anemias, not elsewhere classified; E11.319 Type 2 diabetes mellitus with unspecified diabetic retinopathy without macular edema; E11.40 Type 2 diabetes mellitus with diabetic neuropathy, unspecified; Z95.810 Presence of automatic (implantable) cardiac defibrillator
CPT/HCPCS: 36415-UA; 71045-TC; 72100-TC; 72125-TC; 72131-TC; 80048-TC; 80053-TC; 81001-TC; 82085-90; 82607-90; 82746-90; 83735-TC; 83880-TC; 84439-90; 84443-TC; 85025-TC; 85610-TC; 85652-TC; 86141-TC; 90937; 93005; J1644; J7030; Z7610